=== PATIENT | male | born 1970 | race Hispanic/Latino ===

== ENCOUNTER 2023-08-17 17:36 | Emergency (ER) | payer OTHER, SELFPAY ==
--- NOTE | 2023-08-17 17:44 | ECG_ITS ---
Measurements Intervals [place] Rate: 88 P: 43 WV: 151 QRS: 34 QRSD: 92 T: 13 QT: 333 QTc: 405 Interpretive Statements SINUS RHYTHM NO PREVIOUS ECG AVAILABLE FOR COMPARISON Electronically Signed On 08-18-2023 12:11:45 CDT by Tati Galvan M.D.
--- NOTE | 2023-08-17 17:46 | ED.GENADULT ---
HPI - General Adult General Chief complaint: Chest Pain Stated complaint: pain in chest left side,lightheaded Time Seen by Provider: 08/17/23 17:46 Source: patient, RN notes reviewed and old records reviewed Mode of arrival: ambulatory Limitations: no limitations History of Present Illness HPI narrative: 53-year-old male presents to the [facility] with complaints of left-sided chest pain that started yesterday. Reports lightheadedness, dizziness as well as nausea. Pain has been waxing and weaning. Denies any significant past medical or surgical history Related Data Home Medications Medication Instructions Recorded Confirmed meloxicam 15 mg tablet 15 mg DIRECTED 08/17/23 08/17/23 Allergies Allergy/AdvReac Type Severity Reaction Status Date / Time No Known Drug Allergies Allergy Unknown Verified 03/03/18 17:09 Review of Systems Review of Systems: All systems reviewed & are unremarkable except as noted in HPI and below Constitutional: Constitutional: Reports no additional constitutional complaints Eyes: Eyes: Reports no additional eye complaints ENT: Reports system reviewed and no additional complaints, except as documented Cardiovascular: Cardiovascular: Reports as per HPI, Reports chest pain, Reports chest pain at rest, Reports chest pain with activity, Reports lightheadedness and Reports dyspnea Respiratory: Respiratory: Reports no additional respiratory complaints, Denies chest congestion, Denies cough and Denies dyspnea Gastrointestinal: Gastrointestinal: Reports no additional gastrointestinal complaints, Denies abdominal pain, Denies nausea and Denies vomiting Musculoskeletal: Musculoskeletal: Reports no additional musculoskeletal complaints Integumentary/Breasts: Skin/Breast: Reports system reviewed and no additional complaints, except as docu Neurologic: Reports system reviewed and no additional complaints, except as documented Psychiatric: Psychiatric: Reports no additional psychiatric complaints Allergic/Immunologic: Allergic/Immunologic: Reports no additional allergic/immunologic complaints PMFSH Comments At the time of my signature, I reviewed and agree with the nursing past medical, surgical, social, and family history. There is no relevant family history pertinent to the patient complaint. Exam Const: General: cooperative, healthy appearing, comfortable, no acute distress, well developed, alert and well nourished Nutritional Appearance: well nourished and obese centrally obese Orientation/consciousness: patient oriented x3 Limitations: no limitations HENMT: Head: normal to inspection Ears: hearing grossly normal bilaterally and external ears normal Face/Nose/Sinus: Normal external nose present, Normal nares present, Normal nasal mucous membranes and turbinates present, normal facial exam and face symmetric Face and sinus: normal facial exam and face symmetric Mouth: Yes lip normal and Yes moist mucous membranes Eyes: General: appearance normal, both eyes and all related structures Alignment and Position: alignment normal Periorbital: periorbital findings normal Pupils: Equal, round and reactive pupils present EOM: EOMs intact bilaterally Neck: Neck: normal visual inspection, full ROM, no lymphadenopathy and no meningeal signs Chest: Chest palpation & inspection: normal inspection of the chest Other: Pain is not reproducible with palpation of the left chest, breast area Resp: Effort & Inspection: normal respiratory effort and able to speak in complete sentences Auscultation: clear to auscultation bilaterally, no crackles, no rales, no rhonchi and no wheezes Cardio: Rate: regular rate Rhythm: regular rhythm Back/Spine/Pelvis: Cervical Spine: cervical ROM normal Skin: General skin exam: normal color and no rashes or lesions noted Lesions: no lesions Rashes: no rashes Wounds: no wounds Neuro: General: patient oriented x3, gait normal, tone normal, moves all extremities an
[2023-08-17 17:47] VITALS: BP 140/71; PULSE 90; RESP 18; TEMP 37; O2SAT 99
== END 2023-08-17 18:00 | disposition short-term general hospital (02) ==
PROVIDERS: Emergency Provider Nurse Practitioner; PCP Hospitalist
DX: R07.9 Chest pain, unspecified (principal); Z79.1 Long term (current) use of non-steroidal anti-inflammatories (NSAID)
CPT/HCPCS: 93005; 99213; G0463

== ENCOUNTER 2025-03-08 16:41 | Outpatient (CLI) | payer MEDICAID, SELFPAY ==
[2025-03-08 17:10] LABS: BCR/abl P190 Chg YES; BCR/abl P210 Chg YES
[2025-03-08 17:11] LABS: Hematocrit 43.8 % (42.0-52.0); Hemoglobin 14.7 g/dL (14.0-18.0); Mean Corpuscular HGB Conc 33.6 g/dl (32-36); Mean Corpuscular Hemoglobin 30.4 pg (26-34); Mean Corpuscular Volume 90.7 fl (80-100); Mean Platelet Volume 9.9 fl (7.4-10.4); Platelet Count Result 254 k/mm3 (150-375); Red Blood Count 4.83 M/mm3 (4.6-6.20); Red Cell Distribution Width 12.7 % (11.5-14.5)
[2025-03-08 17:26] LABS: Alanine Aminotransferase 18 U/L (6-50); Albumin Level 4.2 g/dL (3.5-5.1); Alkaline Phosphatase 75 U/L (38-126); Anion Gap 10 mmol/L (4-12); Aspartate Amino Transferase 25 U/L (17-59); Bilirubin,Total 0.4 mg/dL (0.2-1.3); Blood Urea Nitrogen 22 mg/dL (9-20); Calcium 9.1 mg/dL (8.4-10.2); Carbon Dioxide 26 mmol/L (22-30); Chloride 107 mmol/L (98-107); Estimated Glomerular Filt Rate > 60; Glucose 95 mg/dL (65-110); Potassium 4.1 mmol/L (3.4-5.0); Sodium 143 mmol/L (137-145)
--- OUTSIDE RECORDS SUMMARY | 2025-03-08 17:44 | XMS_ITS | Clinical Summary ---
Author Organization [facility] Address [address] [place] [address] Care Team Providers Care Bonsai Tender Name Role Phone Rich Yu MD Primary Care Provider [phone] [facility],non-owned Affiliates and Associated Physician Practices is amultiple site organization consisting of ambulatory clinics and hospital sitesin [place], [place], [place] and [place]. This disclosure is being madepursuant to the Care Everywhere program and may not contain all information available regarding this patient. Last updated 18.[facility] [employer] [facility] Allergies No known active allergies Medications * Be aware that medications may not be up to date on this document. Alwaysverify current medications with the patient. 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 1 Social History Tobacco Use Types Packs/Day Years Used Date Smoking Tobacco: Never Smokeless Tobacco: Never Alcohol Use Standard Drinks/Week Comments No 0 (1 standard drink = 0.6 oz pur e alcohol) Sex and Gender Information Value Date Recorded Sex Assigned at Not on file Legal Sex Male 6:30 PM CDT Gender Identity Not on file Sexual Orientation Not on file Last Filed Vital Signs Vital Sign Reading Time Taken Comments Blood Pressure 139/93 08/31/2018 1:22 PM CDT Pulse 77 08/31/2018 1:22 PM CDT Temperature 36.6 C (97.8 F) 08/31/2018 1:22 PM CDT Respiratory Rate 14 08/31/2018 1:22 PM CDT Oxygen Saturation 97% 08/31/2018 1:22 PM CDT Inhaled Oxygen Concentration - - Weight 113.4 kg (250 lb) 09/23/2018 8:37 AM [facility]TER [facility] Height 167.6 cm (5' 6 ) 09/23/2018 8:37 AM [facility]TER [facility] Body Mass Index 40.35 09/23/2018 8:37 AM COUNTER HELP Plan of Treatment Health Maintenance Due Date Last Done Comments COLOGUARD (AGES 45-75) - COL ON CA SCREENING 1972 COLON MONITORING 1972 COLONOSCOPY - COLON CA SCREENING 1972 CT COLONOGRAPHY - COLON CA SCREENING 1972 Colorectal Cancer Screening 1972 FIT - COLON CA SCREENING 1972 FLEX SIG - COLON CA SCREENING 1972 LIPID TESTING 1972 HIV SCREENING 1987 HEPATITIS C SCREENING 06/03/1990 DTAP/TDAP/TD VACCINES (1 - Tdap) 1991 HEPATITIS B VACCINE (1 of 3 - 19+ 3-dose series) 1991 SCREENING FOR DIABETES 08/25/2018 PNEUMOCOCCAL VACCINE 50+ (1 of 1 - PCV) 2022 ZOSTER VACCINE (1 of 2) 2022 COVID-19 VACCINE (1 - 2023-2 5 season) 2024 DEPRESSION SCREENING 11/16/2024 INFLUENZA VACCINE (Season Ended) 2025 HIB VACCINE Aged Out No longer eligi ble based on patient's age to complete this topic HPV VACCINE Aged Out No longer eligi ble based on patient's age to complete this topic MENINGOCOCCAL (Group B) VACC INE SHARED DECISION-MAKING Aged Out No longer eligibl e based on patient's age to complete this topic MENINGOCOCCAL GROUPS A/C/Y/W VACCINE Aged Out No longer eligible b ased on patient's age to complete this topic Insurance [employer] Advance Directives * Full Code (Latest Code Status on File) Date Activated Date Inactivated Comments 08/30/2018 10:13 AM 08/31/2018 2:59 PM Care Teams Bonsai Tender Relationship Specialty Start Date End Date Rich Yu MD [id number] [id number] PCP - General 08/26/18
--- OUTSIDE RECORDS SUMMARY | 2025-03-08 17:44 | XMS_ITS | Referral Summary ---
Author Organization [place] [address] [address] Care Team Providers Care Director Of Sales And Marketing Name Role Phone Gerardo Wolff MD, Makayla Crawley Primary Care Provide r Encounters Date Type Department Care Team Description 03/06/2025 2:30 PM CDT Office Visit [address] [phone] Parrish Garcia MD Snoring 02/14/2025 Orders Only [facility] [address] [place] [phone] Makayla Carrillo Jr., MD Snoring (Primary Dx) 02/14/2025 Telephone [facility] Primary Care [address] [place] [phone] Makayla Carrillo Jr., MD Zepbound denied 02/13/2025 Telephone [facility] Care [address] [place] [phone] Makayla Carrillo Jr., MD Medical Question/Miscellaneous 02/13/2025 Telephone [facility] Care [address] [place] [phone] Makayla Carrillo Jr., MD 02/13/2025 7:45 AM CDT Office Visit [facility] Care [address] [place] [phone] Makayla Carrillo Jr., MD Acute prostatitis (Primary Dx); Class 2 severe obesity due to excess calories with serious comorbidity and body mass index (BMI) of 37.0 to 37.9 in adult (HCC); Sepsis without acute organ dysfunction, due to unspecified organism (HCC); Benign essential microscopic hematuria 01/27/[address] [phone] Makayla Carrillo Jr., MD Med Refill; Call Back 01/12/2025 Letter (Out) [address] [phone] 01/12/[address] [phone] Makayla Carrillo Jr., MD Leukocytosis, unspecified type (Primary Dx); Sepsis without acute organ dysfunction, due to unspecified organism (HCC) 01/06/2025 9:00 AM COMPUTER SYSTEM SPECIALIST Office Visit [address] [phone] Makayla Carrillo Jr., MD Sepsis without acute organ dysfunction, due to unspecified organism (HCC) (Primary Dx); Benign prostatic hyperplasia with weak urinary stream; Leukocytosis, unspecified type; Primary osteoarthritis of both knees; Chronic pain of left knee; Class 2 severe obesity due to excess calories with serious comorbidity and body mass index (BMI) of 37.0 to 37.9 in adult (HCC) 01/05/[address] [phone] Makayla Carrillo Jr., MD Missed appt 01/04/[address] [phone] Makayla Carrillo Jr., MD SAUL Questions 12/31/2024 8:58 PM COMPUTER SYSTEM SPECIALIST - 01/04/2025 1:00 PM COMPUTER SYSTEM SPECIALIST Hospital Encounter [facility] Med Surg [address] [place] [address] Gerard Burrows DO Ismail, Yussuf Jaffar, MD Mahasneh, Omar Ali Mohammed, MD Winston, Jared Todd, MD Sepsis without acute organ dysfunction, due to unspecified organism (HCC) (Primary Dx); Acute prostatitis; Acute cystitis with hematuria Discharge Disposition: Discharge to home or self care 12/21/2024 2:15 PM COMPUTER SYSTEM SPECIALIST Office Visit [facility] Orthopedics and Sports Medicine [facility] [address] [place] [phone] Makayla Michaels PA Primary osteoarthritis of both knees (Primary Dx) 12/13/2024 Telephone [facility] [address] [place] [phone] Makayla Carrillo Jr., MD Lab Results 12/13/2024 9:35 AM COMPUTER SYSTEM SPECIALIST Lab [facility] Office Building [address] [place] [phone] Need for hepatitis B screening test; Need for hepatitis C screening test; Lipid disorder; Preventative health care 12/13/2024 9:00 AM COMPUTER SYSTEM SPECIALIST Office Visit [facility] Care [address] [place] [phone] Tana Mccallum NP Preventative health care (Primary Dx); Lipid disorder; Need for hepatitis C screening test; Need for hepatitis B screening test; Class 2 severe obesity due to excess calories with serious comorbidity and body mass index (BMI) of 38.0 to 38.9 in adult (HCC); Primary osteoarthritis of both knees from Last 3 Months Allergies No known active allergies Medications meloxicam (MOBIC) 15 mg tabletIndications: Primary osteoarthritis of both knees,Chronic pain of left knee Take 1 tablet (15 mg total) by mouth daily 30 tablet 3 5 Active semaglutide (Wegovy) 0.25 mg/0.5 mL auto-injectorIndic ations:Class 2 severe obesity due to excess calories with serious comorbidity and body mass index (BMI) of 38.0 to 38.9 in adult (HCC) Inject 0.5 mL (0.25 mg total) under the skin every 7 days 2 mL 4 02/15/20 25 Discontin ued(Thera py completed ) tamsulosin (FLOMAX) 0.4 mg extended release capsuleIndications :Benign prostatic hyperplasia with weak urinary stream Take 1 capsule (0.4 mg total) by mouth daily 90 capsule 4 5 02/15/20 25 Discontin ued(Thera py completed ) tirzepatide, weight loss, (ZEPBOUND) 2.5 mg/0.5 mL pen injectorIndication s:Class 2 severe obesity due to excess calories with serious comorbidity and body mass index (BMI) of 37.0 to 37.9 in adult (HCC) Inject 0.5 mL (2.5 mg total) under the skin every 7 days 2 mL 5 02/15/20 25 Discontin ued(Thera py completed ) Active Problems Problem Noted Date Diagnosed Date Snoring 03/06/2025 Assessment & Plan (03/06/2025 2:40 PM CDT): The patient was recently hospitalized and noted to have loud snoring. I have recommended proceeding with a nocturnal polysomnogram with a split night protocol if necessary and no MSLT. He will follow up here in 4 months. Benign essential microscopic hematuria 5 Assessment & Plan (02/13/2025 8:02 AM CDT): Had severe prostatitis and continued hematuria Will refer to urology Acute prostatitis 01/03/2025 Assessment & Plan (02/13/2025 8:01 AM CDT): Resolved Sepsis without acute organ d ysfunction, due to unspecified organism 12/31/2024 Assessment & Plan (02/13/2025 7:59 AM CDT): resovled Assessment & Plan (01/06/2025 11:18 AM COMPUTER SYSTEM SPECIALIST): Resolved Finish antibiotic course Primary osteoarthritis of both knees 03/25/2021 Assessment & Plan (01/06/2025 11:18 AM COMPUTER SYSTEM SPECIALIST): Continue mobic Assessment & Plan (12/13/2024 10:01 AM COMPUTER SYSTEM SPECIALIST): Managed by orthopedic surgeon Dr Michaels. FU as planned to continue Tx as needed. 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 Has not taken anything really OTC for it Will give indomethacin for 7 days Hopefully will be able to maintain with OTC after this Preventative health care 04/12/2020 Assessment & Plan (12/13/2024 10:00 AM COMPUTER SYSTEM SPECIALIST): Wear sunscreen with SPF over 50 while outdoors. Wear sun protective head wear and clothing if planning to stay outdoors exposed to the direct sunlight for extended hours. Wear seatbelts while in a vehicle. Do not TEXT and DRIVE Do not DRINK and DRIVE. Drink responsibly Follow a heart healthy diet and lifestyle. Consume 5-7 servings of fruits and vegetables a day. Such as the Mediterranean Diet. Maintain/attain normal body weight. Exercise regularly, minimum 20 mins 3 days a week to reduce cardiovascular healthy. Maintain good sleep schedule and sleep habits I recommend that all patients follow a diet that is high in fruits and vegetables and low in processed foods such as sugar and foods that are made with white flour. I recommend using beneficial fats such as olive oil, nuts, seeds and berries and avoiding saturated animal fats. Please stay physically active to the extent that you are physically able to. Test results: if you have not received communication about test results within 7 days of the test being performed, please contact the office. I strongly encourage myChart sign ups. It can facilitate communication flow. Please contact the office for instructions on signing up. Consider getting Shingrix (shingles vaccine). This is a 2-shot series with each injection given 2-6 months apart. You can obtain the vaccine at most major pharmacies without a prescription Assessment & Plan (12/09/2023 9:10 AM COMPUTER SYSTEM SPECIALIST): Reviewed labs, screenings and vaccines Assessment & Plan (03/25/2021 7:59 AM CDT): Recheck labs BP well controlled Lost weight Cut out soda Will not start walking regime Assessment & Plan (04/12/2020 10:07 AM CDT): Checking labs Will follow-up with us in 1 year in regards to these unless some come back abnormal Hemorrhoids 04/12/2020 Assessment & Plan (04/12/2020 10:05 AM CDT): Will attempt OTC suppositories. Was given information on which one to obtain Will get back to us if symptoms are resolved Tinea pedis of both feet 04/12/2020 Assessment & Plan (04/12/2020 10:06 AM CDT): Will attempt a different antifungal spray for his athletes feet If this does not work and his labs show his liver function is normal we will give oral antifungal to help with his symptoms Class 2 severe obesity due t o excess calories with serious comorbidity and body mass index (BMI) of 37.0 to 37.9 in adult 04/12/2020 Assessment & Plan (01/06/2025 11:18 AM COMPUTER SYSTEM SPECIALIST): Trying to start wegovy, will wait till he is recovered from the sepsis to start Assessment & Plan (12/13/2024 10:01 AM COMPUTER SYSTEM SPECIALIST): Work on attempts to lose weight about 1 lb a week. Join a weight loss program if necessary. Try to reach for BMI under 30. Exercise regularly, Limit carbs and sugars. Control portion intake. Consume 6-8 8oz glasses of water daily. Assessment & Plan (08/07/2022 3:09 PM CDT): Has lost >60 lbs since last visit Continue current healthy life style choices Assessment & Plan (04/12/2020 10:08 AM CDT): Discuss weight loss Recently got new dog, will go on walks more May consider going back on previous more controlled diet Immunizations Immunization Administration Dates Next Due Influenza, Quadrivalent, Spl it, Preservative Free, Intramuscular 10/18/2020 Influenza, Unspecified 02/13/2025(Deferr ed: Patient Refused),09/16/2024(Deferred: Patient Refused),08/31/2024(Deferred: Patient Refused),12/09/2023(Deferred: Patient Refused),09/16/2023(Deferred: Patient Refused),08/26/2023(Deferred: Patient Refused),09/16/2022(Deferred: Patient Refused),08/07/2022(Deferred: Patient Refused) Social History Tobacco Use Types Packs/Day Years Used Date Smoking Tobacco: Never Smokeless Tobacco: Never Tobacco Cessation:Counseling Given: Not Answered Alcohol Use Standard Drinks/Week Comments Not Currently 0 (1 standard drink = 0.6 oz pur e alcohol) View Medicalities Answer Date Recorded In the past 12 months has [employer], [employer] | [employer], or water [employer] threatened to shut off services in your home? No 01/03/2025 Social Connection and Isolat ion Panel [NHANES] Answer Date Recorded In a typical week, how many times do you talk on the phone with family, friends, or neighbors? More than three times a week 01/03/2025 How often do you get togethe r with friends or relatives? More than three times a week 01/03/2025 How often do you attend [facility] or protestant services? More than 4 times per year 01/03/2025 Do you belong to any clubs o r organizations such as gnosticism groups, unions, fraternal or athletic groups, or school groups? No 01/03/2025 How often do you attend meet ings of the clubs or organizations you belong to? Never 01/03/2025 Are you , , di vorced, , never , or living with a partner? 01/03/2025 AUDIT-C Answer Date Recorded Q1: How often do you have a drink containing alcohol? Never 02/13/2025 Q2: How many drinks containi ng alcohol do you have on a typical day when you are drinking? Patient does not drink Q3: How often do you have si x or more drinks on one occasion? Never 02/13/2025 Overall Financial Resource Strain (CARDIA) Answe r Date Recorded How hard is it for you to pa y for the very basics like food, housing, medical care, and heating? Not hard at all 01/03/2025 PHQ-2 Answer Date Recorded PHQ-2 Total Score (If total score is 3 or more points, staff should administer the PHQ-9) 0 02/13/2025 Hunger Vital Sign Answer Date Recorded Within the past 12 months, y ou worried that your food would run out before you got the money to buy more. Never true 01/03/20 25 Within the past 12 months, t he food you bought just didn't last and you didn't have money to get more. Never true 01/03/2025 PRAPARE - Transportation Answer Date Re corded In the past 12 months, has l ack of transportation kept you from medical appointments or from getting medications? No 12/17 In the past 12 months, has l ack of transportation kept you from meetings, work, or from getting things needed for daily living? No 01/03/2025 PHQ-9 Answer Date Recorded PHQ-9 Total Score 0 12/13/2024 Housing Stability Vital Sign Answer Primitivo e Recorded In the last 12 months, was t here a time when you were not able to pay the mortgage or rent on time? No 01/03/2025 In the past 12 months, how m any times have you moved where you were living? 0 01/03/2025 At any time in the past 12 m [facility], were you homeless or living in a detention (including now)? No 01/03/2025 Personal Safety Answer Date Recorded Have you ever been in or are you currently in a harmful physical or emotional relationship or is someone making you feel afraid or unsafe? Denies 01/01/2025 Sex and Gender Information Value Date Recorded Sex Assigned at Not on file Legal Sex Male 12:16 AM COMPUTER SYSTEM SPECIALIST Gender Identity Not on file Sexual Orientation Not on file Last Filed Vital Signs Vital Sign Reading Time Taken Comments Blood Pressure 124/68 03/06/2025 2:00 PM CDT Pulse 86 03/06/2025 2:00 PM CDT Temperature 37 C (98.6 F) 03/06/2025 2:00 PM CDT Respiratory Rate 18 03/06/2025 2:00 PM CDT Oxygen Saturation 96% 03/06/2025 2:00 PM CDT Inhaled Oxygen Concentration - - Weight 108 kg (238 lb) 03/06/2025 2:00 PM CDT Height 170.2 cm (5' 7 ) 03/06/2025 2:00 PM CDT Body Mass Index 37.28 03/06/2025 2:00 PM CDT Plan of Treatment Not on file Procedures Procedure Name Priority Date/Time Associated Diagnosis Comments POCT URINALYSIS DIPSTICK Routine 02/13/2025 7:42 AM CDT Acute prostatitis EGFR Routine 01/04/2025 7:47 AM COMPUTER SYSTEM SPECIALIST DIFFERENTIAL AUTO Routine 01/04/2025 7:4 7 AM COMPUTER SYSTEM SPECIALIST CBC WITH AUTO DIFFERENTIAL Routine 01/04/2025 7:47 AM COMPUTER SYSTEM SPECIALIST COMPREHENSIVE METABOLIC PANEL Routine 01/04/2025 7:47 AM COMPUTER SYSTEM SPECIALIST PHOSPHORUS Routine 01/04/2025 7:47 AM COMPUTER SYSTEM SPECIALIST EGFR Routine 01/03/2025 8:05 AM COMPUTER SYSTEM SPECIALIST DIFFERENTIAL AUTO Routine 01/03/2025 8:0 5 AM COMPUTER SYSTEM SPECIALIST CBC WITH AUTO DIFFERENTIAL Routine 01/03/2025 8:05 AM COMPUTER SYSTEM SPECIALIST COMPREHENSIVE METABOLIC PANEL Routine 01/03/2025 8:05 AM COMPUTER SYSTEM SPECIALIST MAGNESIUM Routine 01/03/2025 8:05 AM COMPUTER SYSTEM SPECIALIST PHOSPHORUS Routine 01/03/2025 8:05 AM COMPUTER SYSTEM SPECIALIST EGFR Routine 01/02/2025 9:58 AM COMPUTER SYSTEM SPECIALIST DIFFERENTIAL AUTO Routine 01/02/2025 9:5 8 AM COMPUTER SYSTEM SPECIALIST CBC WITH AUTO DIFFERENTIAL Routine 01/02/2025 9:58 AM COMPUTER SYSTEM SPECIALIST COMPREHENSIVE METABOLIC PANEL Routine 01/02/2025 9:58 AM COMPUTER SYSTEM SPECIALIST MAGNESIUM Routine 01/02/2025 9:58 AM COMPUTER SYSTEM SPECIALIST N. GONORRHOEAE/C. TRACHOMATIS AMPLIFICATION STAT 01/01/2025 5:52 AM COMPUTER SYSTEM SPECIALIST EGFR Routine 01/01/2025 2:10 AM COMPUTER SYSTEM SPECIALIST DIFFERENTIAL AUTO Routine 01/01/2025 2:1 0 AM COMPUTER SYSTEM SPECIALIST LACTATE Routine 01/01/2025 2:10 AM COMPUTER SYSTEM SPECIALIST PHOSPHORUS Routine 01/01/2025 2:10 AM COMPUTER SYSTEM SPECIALIST MAGNESIUM Routine 01/01/2025 2:10 AM COMPUTER SYSTEM SPECIALIST CBC WITH AUTO DIFFERENTIAL Routine 01/01/2025 2:10 AM COMPUTER SYSTEM SPECIALIST BASIC METABOLIC PANEL Routine 01/01/2025 2:10 AM COMPUTER SYSTEM SPECIALIST TROPONIN T HIGH-SENSITIVITY 6-HOUR Timed 01/01/2025 2:10 [address] COM[address] CHEST PE ABDOMEN PELVIS W CONTRAST ED 12/31/2024 8:20 PM COMPUTER SYSTEM SPECIALIST TROPONIN T HIGH-SENSITIVITY 2-HOUR Timed 12/31/2024 8:11 PM COMPUTER SYSTEM SPECIALIST MANUAL DIFFERENTIAL STAT 12/31/2024 7 :14 PM COMPUTER SYSTEM SPECIALIST CBC WITH AUTO DIFFERENTIAL STAT 12/31/2024 7:14 PM COMPUTER SYSTEM SPECIALIST BLOOD CULTURE STAT 12/31/2024 7:14 PM COMPUTER SYSTEM SPECIALIST SEPSIS LACTATE WITH REFLEX STAT 12/31/2024 7:05 PM COMPUTER SYSTEM SPECIALIST BLOOD CULTURE STAT 12/31/2024 7:05 PM COMPUTER SYSTEM SPECIALIST XR CHEST 1 VIEW ED 12/31/2024 6:10 PM COMPUTER SYSTEM SPECIALIST URINALYSIS, MICROSCOPIC ONLY STAT 12/31/2024 6:07 PM COMPUTER SYSTEM SPECIALIST URINE CULTURE STAT 12/31/2024 6:07 PM COMPUTER SYSTEM SPECIALIST URINALYSIS AND REFLEX TO MICROSCOPIC AND CULTURE STAT 12/31/2024 6:07 PM COMPUTER SYSTEM SPECIALIST EGFR STAT 12/31/2024 5:58 PM COMPUTER SYSTEM SPECIALIST MANUAL DIFFERENTIAL STAT 12/31/2024 5 :58 PM COMPUTER SYSTEM SPECIALIST DIFFERENTIAL AUTO STAT 12/31/2024 5:5 8 PM COMPUTER SYSTEM SPECIALIST LIPASE STAT 12/31/2024 5:58 PM COMPUTER SYSTEM SPECIALIST TROPONIN T HIGH-SENSITIVITY SERIES (BASELINE, 2HR, 4HR, 6HR) STAT 12/31/2024 5:58 PM COMPUTER SYSTEM SPECIALIST COMPREHENSIVE METABOLIC PANEL STAT 12/31/2024 5:58 PM COMPUTER SYSTEM SPECIALIST CBC WITH AUTO DIFFERENTIAL STAT 12/31/2024 5:58 PM COMPUTER SYSTEM SPECIALIST INFLUENZA A/B, RSV, AND COVID-19 PCR STAT 12/31/2024 5:58 PM COMPUTER SYSTEM SPECIALIST ECG 12-LEAD STAT 12/31/2024 5:53 PM COMPUTER SYSTEM SPECIALIST TX ARTHROCENTESIS ASPIR&/INJ MAJOR JT/BURSA W/O US Routine 12/21/2024 2:15 PM COMPUTER SYSTEM SPECIALIST Primary osteoarthritis of both knees EGFR Routine 12/13/2024 9:50 AM COMPUTER SYSTEM SPECIALIST Preventative health care DIFFERENTIAL AUTO Routine 12/13/2024 9:5 0 AM COMPUTER SYSTEM SPECIALIST Preventative health care CBC WITH AUTO DIFFERENTIAL Routine 12/13/2024 9:50 AM COMPUTER SYSTEM SPECIALIST Preventative health care COMPREHENSIVE METABOLIC PANEL Routine 12/13/2024 9:50 AM COMPUTER SYSTEM SPECIALIST Preventative health care LIPID PANEL Routine 12/13/2024 9:50 AM COMPUTER SYSTEM SPECIALIST Lipid disorder HEPATITIS C ANTIBODY Routine 12/13/2024 9:50 AM COMPUTER SYSTEM SPECIALIST Need for hepatitis C screening test HEPATITIS B SURFACE ANTIGEN Routine 12/13/2024 9:50 AM COMPUTER SYSTEM SPECIALIST Need for hepatitis B screening test PSA SCREEN Routine 12/09/2023 8:57 AM COMPUTER SYSTEM SPECIALIST Preventative health care HM COLONOSCOPY Routine 05/21/2021 from Last 3 Months or Most Recently Relevant to Health Maintenance Results * (ABNORMAL) POCT urinalysis dipstick (02/13/2025 7:42 AM CDT) Color, Urine, POC Charu Clarity, ur, POC Clear Clear Glucose, ur, POC Negative Negative MG/DL Bilirubin, ur, POC Negative Negative, Small, Moderate, Large Ketones, ur, POC Negative Negative Specific Anselmo, POC 1.025 1.003 - 1.030 Blood, ur, POC Moderate(A) Negative pH, ur, POC 5.5 5.0 - 8.0 Protein, ur, POC Negative Negative Urobilinogen, urine, POC 0.2 0.2 - 1.0 mg/dL Nitrite, ur, POC Negative Negative Leukocytes, ur, POC Negative Negative Lot Number 0 Urine 02/13/2025 7:42 AM CDT Makayla Carrillo Jr., MD POINT OF CARE TEST OR DERABLES Final Result * eGFR (01/04/2025 7:47 AM COMPUTER SYSTEM SPECIALIST) eGFR >90 >=60 mL/min/1. 73 m2 Comment: Interpretive Data Reference Interval Normal >/= 90 mL/min/1.73m2 Mildly decreased* 60 - 89 mL/min/1.73m2 Mildly to moderately decreased 45 - 59 mL/min/1.73m2 Moderately to severely decreased 30 - 44 mL/min/1.73m2 Severely decreased 15 - 29 mL/min/1.73m2 Kidney Failure < 15 mL/min/1.73m2 *Relative to young adult level Estimated glomerular filtration rate is determined by the 2020 CKD-EPI equation recommended by the National Kid[employer] Foundation (A Unifying Approach to GFR Estimation: Recommendations of the NKF-ASK Task Force on Reassessing the Inclusion of Race in Diagnosing Kidney Disease, JASN 2020). The CKD-EPI equation should not be used for patients with unstable renal function and has not been validated in children and those over 70. Current interpretive data was last reviewed 2021. Testing performed by: [address] [address] Blood 01/04/2025 7:47 AM COMPUTER SYSTEM SPECIALIST 01/04/2025 8:13 AM COMPUTER SYSTEM SPECIALIST us Francisco Javier Cid MD LAB BLOOD ORDERABL ES Final Result [facility] [address] [facility] Department [place] [address] * (ABNORMAL) Differential, auto (01/04/2025 7:47 AM COMPUTER SYSTEM SPECIALIST) Neutrophil abs 11.7(H) 1.5 - 6.5 K/cumm Comment:Testing performed by : [address] [address] Imm gran abs 0.4(H) 0.0 - 0.1 K/cumm NEO MAHARAJ Comment:Testing performed by : [address] [address] Lymphocyte abs 2.2 0.8 - 3.3 K/cumm NEO MAHARAJ Comment:Testing performed by : [address] [address] Monocyte abs 1.0(H) 0.2 - 0.8 K/cumm NEO MAHARAJ Comment:Testing performed by : [address] [address] Eosinophil abs 0.2 0.0 - 0.5 K/cumm NEO Comment:Testing performed by : [address] [address] Basophil abs 0.1 0.0 - 0.1 K/cumm NEO Comment:Testing performed by : [address] [address] Neutrophil pct 75.2 % [facility] Comment: Interpretive Data Percent cell count reference ranges are not reported, since discordance with absolute values may lead to misinterpretation of CBC data. Current Interpretive Data was last revised on 2018. Testing performed by: [address] [address] Imm gran pct 2.6 % [facility] Comment: Interpretive Data Percent cell count reference ranges are not reported, since discordance with absolute values may lead to misinterpretation of CBC data. Current Interpretive Data was last revised on 2018. Testing performed by: [address] [address] Lymphocyte pct 14.0 % [facility] Comment: Interpretive Data Percent cell count reference ranges are not reported, since discordance with absolute values may lead to misinterpretation of CBC data. Current Interpretive Data was last revised on 2018. Testing performed by: [address] [address] Monocyte pct 6.3 % [facility] Comment: Interpretive Data Percent cell count reference ranges are not reported, since discordance with absolute values may lead to misinterpretation of CBC data. Current Interpretive Data was last revised on 2018. Testing performed by: [address] [address] Eosinophil pct 1.2 % [facility] Comment: Interpretive Data Percent cell count reference ranges are not reported, since discordance with absolute values may lead to misinterpretation of CBC data. Current Interpretive Data was last revised on 2018. Testing performed by: [address] [address] Basophil pct 0.7 % [facility] Comment: Interpretive Data Percent cell count reference ranges are not reported, since discordance with absolute values may lead to misinterpretation of CBC data. Current Interpretive Data was last revised on 2018. Testing performed by: [address] [address] Blood 01/04/2025 7:47 AM COMPUTER SYSTEM SPECIALIST 01/04/2025 8:15 AM COMPUTER SYSTEM SPECIALIST Francisco Javier Cid MD LAB BLOOD ORDERABL ES Final Result [facility] [address] [facility] Department of Laboratories [place], [place] [id number] * (ABNORMAL) CBC with auto differential (01/04/2025 7:47 AM COMPUTER SYSTEM SPECIALIST) WBC 15.5(H) 3.8 - 9.9 K/cumm Comment:Testing performed by : [address] [address] Hgb 15.1 13.0 - 17.5 g/dL NEO Comment:Testing performed by : [address] [address] Hct 44.4 38.9 - 50.3 % NEO Comment:Testing performed by : [address] [address] Plt 293 150 - 400 K/cumm NEO Comment:Testing performed by : [address] [address] MPV 10.5 9.1 - 12.3 fL NEO Comment:Testing performed by : [address] [address] RBC 4.97 4.30 - 5.80 M/cumm NEO MAHARAJ Comment:Testing performed by : [address] [address] MCV 89.3 81.3 - 96.4 fL NEO Comment:Testing performed by : [address] [address] MCH 30.4 27.1 - 33.3 pg NEO MAHARAJ Comment:Testing performed by : [facility], [address] [place] [address]., [address] MCHC 34.0 32.3 - 35.7 g/dL NEO MAHARAJ Comment:Testing performed by : [address] [address] RDW CV 12.7 11.1 - 14.9 % NEO MAHARAJ Comment:Testing performed by : [address] [address] RDW SD 41.6 35.7 - 48.1 fL NEO MAHARAJ Comment:Testing performed by : [address], [place]., [address] NRBC abs 0.00 0.00 - 0.01 K/cumm NEO MAHARAJ Comment:Testing performed by : [address] [address] Blood 01/04/2025 7:47 AM COMPUTER SYSTEM SPECIALIST 01/04/2025 8:15 AM COMPUTER SYSTEM SPECIALIST Francisco Javier Cid MD LAB BLOOD ORDERABL ES Final Result Performing Organization Address City/[facility]/ZIP Co de Phone Number [address] [place] [address] * Phosphorus (01/04/2025 7:47 AM COMPUTER SYSTEM SPECIALIST) [facility] Phosphorus, pl 3.5 2.3 - 4.5 mg/dL Comment:Testing performed by : [address] [address] Blood 01/04/2025 7:47 AM COMPUTER SYSTEM SPECIALIST 01/04/2025 8:13 AM COMPUTER SYSTEM SPECIALIST Francisco Javier Cid MD LAB BLOOD ORDERABL ES Final Result [address] [address] * (ABNORMAL) Comprehensive metabolic panel (01/04/2025 7:47 AM COMPUTER SYSTEM SPECIALIST) Sodium 140 135 - 145 mmol/L Comment:Testing performed by : [address], [place]., [address] Potassium, pl 3.9 3.3 - 4.9 mmol/L NEO Comment:Testing performed by : [address], [place]., [address] Chloride 104 97 - 110 mmol/L NEO Comment:Testing performed by : [address], [place]., [address] CO2 24 22 - 32 mmol/L [facility] Comment:Testing performed by : [address], [place]., [address] Anion gap 12 2 - 15 mmol/L NEO Comment:Testing performed by : [address], [place]., [address] BUN 13 6 - 25 mg/dL [facility] Comment:Testing performed by : [address], [place]., [address] Creatinine 0.60(L) 0.80 - 1.30 mg/dL [facility] Comment:Testing performed by : [address], [place]., [address] Glucose 97 70 - 199 mg/dL [facility] Comment: Interpretive Data Fasting glucose >/= 126 mg/dl is diagnostic for diabetes. Fasting is defined as no caloric intake for at least 8 hours. Fasting glucose between 100 mg/dl to 125 mg/dl is diagnostic of prediabetes. In a patient with classic symptoms of hyperglycemia or hyperglycemic crisis, a random glucose >/= 200 mg/dl is diagnostic for diabetes. In the absence of unequivocal hyperglycemia, results should be confirmed by repeat testing. The classification and Diagnosis of Diabetes Diabetes Care 202; 46: S19-S40. Current interpretive data was last revised 2022. Testing performed by: [address] [address] Calcium 9.5 8.5 - 10.3 mg/dL NEO Comment:Testing performed by : [address], [place]., [address] Bilirubin, total 0.2 0.1 - 1.2 mg/dL NEO Comment:Testing performed by : [address] [address] Protein, pl 7.5 6.5 - 8.5 g/dL NEO MAHARAJ Comment:Testing performed by : [address] [address] Albumin 3.6 3.5 - 5.0 g/dL NEO MAHARAJ Comment:Testing performed by : [address] [address] Alk phos 112 40 - 130 Units/L NEO Comment:Testing performed by : [address] [address] ALT 22 7 - 55 Units/L NEO Comment:Testing performed by : [address] [address] AST 24 10 - 50 Units/L NEO Comment:Testing performed by : [address] [address] Blood 01/04/2025 7:47 AM COMPUTER SYSTEM SPECIALIST 01/04/2025 8:13 AM COMPUTER SYSTEM SPECIALIST Francisco Javier Cid MD LAB BLOOD ORDERABL ES Final Result NEO [address] [facility] Department of Laboratories [place], [place] [id number] * eGFR (01/03/2025 8:05 AM COMPUTER SYSTEM SPECIALIST) eGFR >90 >=60 mL/min/1. 73 m2 Comment: Interpretive Data Reference Interval Normal >/= 90 mL/min/1.73m2 Mildly decreased* 60 - 89 mL/min/1.73m2 Mildly to moderately decreased 45 - 59 mL/min/1.73m2 Moderately to severely decreased 30 - 44 mL/min/1.73m2 Severely decreased 15 - 29 mL/min/1.73m2 Kidney Failure < 15 mL/min/1.73m2 *Relative to young adult level Estimated glomerular filtration rate is determined by the 2020 CKD-EPI equation recommended by the National Kidney Foundation (A Unifying Approach to GFR Estimation: Recommendations of the NKF-ASK Task Force on Reassessing the Inclusion of Race in Diagnosing Kidney Disease, LAYSN 2020). The CKD-EPI equation should not be used for patients with unstable renal function and has not been validated in children and those over 70. Current interpretive data was last reviewed 2021. Testing performed by: [address] [address] Blood 01/03/2025 8:05 AM COMPUTER SYSTEM SPECIALIST 01/03/2025 8:36 AM COMPUTER SYSTEM SPECIALIST Francisco Javier Cid MD LAB BLOOD ORDERABL ES Final Result NEO [address] [facility] Department [place] [address] * (ABNORMAL) Differential, auto (01/03/2025 8:05 AM COMPUTER SYSTEM SPECIALIST) Neutrophil abs 20.7(H) 1.5 - 6.5 K/cumm Comment:Testing performed by : [address] [address] Imm gran abs 0.2(H) 0.0 - 0.1 K/cumm NEO Comment:Testing performed by : [address] [address] Lymphocyte abs 1.8 0.8 - 3.3 K/cumm NEO Comment:Testing performed by : [address] [address] Monocyte abs 1.0(H) 0.2 - 0.8 K/cumm NEO Comment:Testing performed by : [address] [address] Eosinophil abs 0.1 0.0 - 0.5 K/cumm NEO Comment:Testing performed by : [address] [address] Basophil abs 0.1 0.0 - 0.1 K/cumm NEO Comment:Testing performed by : [address] [address] Neutrophil pct 86.7 % NEO Comment: Interpretive Data Percent cell count reference ranges are not reported, since discordance with absolute values may lead to misinterpretation of CBC data. Current Interpretive Data was last revised on 2018. Testing performed by: [address] [address] Imm gran pct 1.0 % [facility] Comment: Interpretive Data Percent cell count reference ranges are not reported, since discordance with absolute values may lead to misinterpretation of CBC data. Current Interpretive Data was last revised on 2018. Testing performed by: [address] [address] Lymphocyte pct 7.4 % [facility] Comment: Interpretive Data Percent cell count reference ranges are not reported, since discordance with absolute values may lead to misinterpretation of CBC data. Current Interpretive Data was last revised on 2018. Testing performed by: [address] [address] Monocyte pct 4.1 % [facility] Comment: Interpretive Data Percent cell count reference ranges are not reported, since discordance with absolute values may lead to misinterpretation of CBC data. Current Interpretive Data was last revised on 2018. Testing performed by: [address] [address] Eosinophil pct 0.5 % [facility] Comment: Interpretive Data Percent cell count reference ranges are not reported, since discordance with absolute values may lead to misinterpretation of CBC data. Current Interpretive Data was last revised on 2018. Testing performed by: [address] [address] Basophil pct 0.3 % [facility] Comment: Interpretive Data Percent cell count reference ranges are not reported, since discordance with absolute values may lead to misinterpretation of CBC data. Current Interpretive Data was last revised on 2018. Testing performed by: [address] [address] Blood 01/03/2025 8:05 AM COMPUTER SYSTEM SPECIALIST 01/03/2025 8:37 AM COMPUTER SYSTEM SPECIALIST Francisco Javier Cid MD LAB BLOOD ORDERABL ES Final Result Performing Organization Address City/State/[facility] Co de Phone Number NEO [address] [facility] Department [place] [address] * (ABNORMAL) CBC with auto differential (01/03/2025 8:05 AM COMPUTER SYSTEM SPECIALIST) WBC 23.9(H) 3.8 - 9.9 K/cumm Comment:Testing performed by : [address] [address] Hgb 14.6 13.0 - 17.5 g/dL NEO Comment:Testing performed by : [address] [address] Hct 42.3 38.9 - 50.3 % NEO Comment:Testing performed by : [address] [address] Plt 266 150 - 400 K/cumm NEO Comment:Testing performed by : [address] [address] MPV 10.9 9.1 - 12.3 fL NEO Comment:Testing performed by : [address] [address] RBC 4.73 4.30 - 5.80 M/cumm NEO Comment:Testing performed by : [address] [address] MCV 89.4 81.3 - 96.4 fL NEO Comment:Testing performed by : [address] [address] MCH 30.9 27.1 - 33.3 pg NEO Comment:Testing performed by : [address] [address] MCHC 34.5 32.3 - 35.7 g/dL NEO Comment:Testing performed by : [address], [address] RDW CV 12.6 11.1 - 14.9 % NEO Comment:Testing performed by : [address] [address] RDW SD 41.4 35.7 - 48.1 fL NEO Comment:Testing performed by : [address] [address] NRBC abs 0.00 0.00 - 0.01 K/cumm NEO Comment:Testing performed by : [address] [address] Blood 01/03/2025 8:05 AM COMPUTER SYSTEM SPECIALIST 01/03/2025 8:37 AM COMPUTER SYSTEM SPECIALIST Francisco Javier Cid MD LAB BLOOD ORDERABL ES Final Result Performing Organization Address City/[facility]/ZIP Co de Phone Number [address] [address] * (ABNORMAL) Phosphorus (01/03/2025 8:05 AM COMPUTER SYSTEM SPECIALIST) Phosphorus, pl 2.2(L) 2.3 - 4.5 mg/dL Comment:Testing performed by : [address] [address] Blood 01/03/2025 8:05 AM COMPUTER SYSTEM SPECIALIST 01/03/2025 8:36 AM COMPUTER SYSTEM SPECIALIST Francisco Javier Cid MD LAB BLOOD ORDERABL ES Final Result Performing Organization Address [facility] Co de Phone Number [address] [address] * Magnesium (01/03/2025 8:05 AM COMPUTER SYSTEM SPECIALIST) Magnesium 2.0 1.4 - 2.5 mg/dL Comment:Testing performed by : [address] [address] Blood 01/03/2025 8:05 AM COMPUTER SYSTEM SPECIALIST 01/03/2025 8:36 AM COMPUTER SYSTEM SPECIALIST Francisco Javier Cid MD LAB BLOOD ORDERABL ES Final Result Performing Organization Address City/[facility] Co de Phone Number [address] [place] [address] * (ABNORMAL) Comprehensive metabolic panel (01/03/2025 8:05 AM COMPUTER SYSTEM SPECIALIST) Sodium 140 135 - 145 mmol/L Comment:Testing performed by : [address] [address] Potassium, pl 3.6 3.3 - 4.9 mmol/L NEO Comment:Testing performed by : [address] [address] Chloride 105 97 - 110 mmol/L NEO Comment:Testing performed by : [address] [address] CO2 24 22 - 32 mmol/L NEO Comment:Testing performed by : [address] [address] Anion gap 11 2 - 15 mmol/L NEO Comment:Testing performed by : [address] [address] BUN 9 6 - 25 mg/dL NEO Comment:Testing performed by : [address] [address] Creatinine 0.60(L) 0.80 - 1.30 mg/dL NEO Comment:Testing performed by : [address] [address] Glucose 117 70 - 199 mg/dL NEO Comment: Interpretive Data Fasting glucose >/= 126 mg/dl is diagnostic for diabetes. Fasting is defined as no caloric intake for at least 8 hours. Fasting glucose between 100 mg/dl to 125 mg/dl is diagnostic of prediabetes. In a patient with classic symptoms of hyperglycemia or hyperglycemic crisis, a random glucose >/= 200 mg/dl is diagnostic for diabetes. In the absence of unequivocal hyperglycemia, results should be confirmed by repeat testing. The classification and Diagnosis of Diabetes Diabetes Care 202; 46: S19-S40. Current interpretive data was last revised 2022. Testing performed by: [address] [address] Calcium 9.1 8.5 - 10.3 mg/dL NEO Comment:Testing performed by : [address] [place] [address] Bilirubin, total 0.2 0.1 - 1.2 mg/dL NEO Comment:Testing performed by : [address] [address] Protein, pl 7.3 6.5 - 8.5 g/dL NEO Comment:Testing performed by : [address] [address] Albumin 3.5 3.5 - 5.0 g/dL NEO Comment:Testing performed by : [address] [address] Alk phos 144(H) 40 - 130 Units/L NEO Comment:Testing performed by : [address], [address] ALT 12 7 - 55 Units/L NEO Comment:Testing performed by : [address], [address] AST 14 10 - 50 Units/L NEO Comment:Testing performed by : [address] [address] Blood 01/03/2025 8:05 AM COMPUTER SYSTEM SPECIALIST 01/03/2025 8:36 AM COMPUTER SYSTEM SPECIALIST Francisco Javier Cid MD LAB BLOOD ORDERABL ES Final Result [facility] [address] [facility] Department [place] [address] * eGFR (01/02/2025 9:58 AM COMPUTER SYSTEM SPECIALIST) eGFR >90 >=60 mL/min/1. 73 m2 Comment: Interpretive Data Reference Interval Normal >/= 90 mL/min/1.73m2 Mildly decreased* 60 - 89 mL/min/1.73m2 Mildly to moderately decreased 45 - 59 mL/min/1.73m2 Moderately to severely decreased 30 - 44 mL/min/1.73m2 Severely decreased 15 - 29 mL/min/1.73m2 Kidney Failure < 15 mL/min/1.73m2 *Relative to young adult level Estimated glomerular filtration rate is determined by the 2020 CKD-EPI equation recommended by the National Kidney Foundation (A Unifying Approach to GFR Estimation: Recommendations of the NKF-ASK Task Force on Reassessing the Inclusion of Race in Diagnosing Kidney Disease, JASN 202). The CKD-EPI equation should not be used for patients with unstable renal function and has not been validated in children and those over 70. Current interpretive data was last reviewed 2021. Testing performed by: [address] [address] Blood 01/02/2025 9:58 AM COMPUTER SYSTEM SPECIALIST 01/02/2025 12:57 PM COMPUTER SYSTEM SPECIALIST Francisco Javier Cid MD LAB BLOOD ORDERABL ES Final Result NEO [facility] Department [place] [address] * (ABNORMAL) Differential, auto (01/02/2025 9:58 AM COMPUTER SYSTEM SPECIALIST) Neutrophil abs 31.1(H) 1.5 - 6.5 K/cumm Comment:Testing performed by : [address] [address] Imm gran abs 0.7(H) 0.0 - 0.1 K/cumm NEO Comment:Testing performed by : [address] [address] Lymphocyte abs 1.8 0.8 - 3.3 K/cumm NEO Comment:Testing performed by : [address] [address] Monocyte abs 1.7(H) 0.2 - 0.8 K/cumm NEO Comment:Testing performed by : [address] [address] Eosinophil abs 0.1 0.0 - 0.5 K/cumm NEO Comment:Testing performed by : [address] [address] Basophil abs 0.1 0.0 - 0.1 K/cumm NEO Comment:Testing performed by : [address] [address] Neutrophil pct 87.8 % [facility] Comment: Interpretive Data Percent cell count reference ranges are not reported, since discordance with absolute values may lead to misinterpretation of CBC data. Current Interpretive Data was last revised on 2018. Testing performed by: [address] [address] Imm gran pct 2.0 % [facility] Comment: Interpretive Data Percent cell count reference ranges are not reported, since discordance with absolute values may lead to misinterpretation of CBC data. Current Interpretive Data was last revised on 2018. Testing performed by: [address] [address] Lymphocyte pct 5.1 % [facility] Comment: Interpretive Data Percent cell count reference ranges are not reported, since discordance with absolute values may lead to misinterpretation of CBC data. Current Interpretive Data was last revised on 2018. Testing performed by: [address] [address] Monocyte pct 4.7 % [facility] Comment: Interpretive Data Percent cell count reference ranges are not reported, since discordance with absolute values may lead to misinterpretation of CBC data. Current Interpretive Data was last revised on 2018. Testing performed by: [address] [address] Eosinophil pct 0.2 % [facility] Comment: Interpretive Data Percent cell count reference ranges are not reported, since discordance with absolute values may lead to misinterpretation of CBC data. Current Interpretive Data was last revised on 2018. Testing performed by: [address] [address] Basophil pct 0.2 % [facility] Comment: Interpretive Data Percent cell count reference ranges are not reported, since discordance with absolute values may lead to misinterpretation of CBC data. Current Interpretive Data was last revised on 2018. Testing performed by: [address] [address] Blood 01/02/2025 9:58 AM COMPUTER SYSTEM SPECIALIST 01/02/2025 11:09 AM COMPUTER SYSTEM SPECIALIST Francisco Javier Cid MD LAB BLOOD ORDERABL ES Final Result NEO [address] [facility] Department [place] [address] * (ABNORMAL) CBC with auto differential (01/02/2025 9:58 AM COMPUTER SYSTEM SPECIALIST) WBC 35.4(H) 3.8 - 9.9 K/cumm Comment:Testing performed by : [address] [address] Hgb 13.7 13.0 - 17.5 g/dL NEO Comment:Testing performed by : [address] [address] Hct 39.3 38.9 - 50.3 % NEO Comment:Testing performed by : [address] [address] Plt 190 150 - 400 K/cumm NEO Comment:Testing performed by : [address] [address] MPV 11.3 9.1 - 12.3 fL NEO Comment:Testing performed by : [address] [address] RBC 4.36 4.30 - 5.80 M/cumm NEO Comment:Testing performed by : [address] [address] MCV 90.1 81.3 - 96.4 fL NEO Comment:Testing performed by : [address] [address] MCH 31.4 27.1 - 33.3 pg NEO Comment:Testing performed by : [address], [address] MCHC 34.9 32.3 - 35.7 g/dL NEO Comment:Testing performed by : [address], [address] RDW CV 12.6 11.1 - 14.9 % NEO Comment:Testing performed by : [address] [address] RDW SD 41.2 35.7 - 48.1 fL NEO MAHARAJ Comment:Testing performed by : [address] [address] NRBC abs 0.00 0.00 - 0.01 K/cumm NEO MAHARAJ Comment:Testing performed by : [address] [address] Blood 01/02/2025 9:58 AM COMPUTER SYSTEM SPECIALIST 01/02/2025 11:09 AM COMPUTER SYSTEM SPECIALIST Francisco Javier Cid MD LAB BLOOD ORDERABL ES Final Result Performing Organization Address City/[facility] Co de Phone Number [address] [place] [address] * Magnesium (01/02/2025 9:58 AM COMPUTER SYSTEM SPECIALIST) Pathologist [facility] Magnesium 2.1 1.4 - 2.5 mg/dL Comment:Testing performed by : [address], [address] Blood 01/02/2025 9:58 AM COMPUTER SYSTEM SPECIALIST 01/02/2025 12:57 PM COMPUTER SYSTEM SPECIALIST Francisco Javier Cid MD LAB BLOOD ORDERABL ES Final Result Performing Organization Address [facility] Co de Phone Number [address] [place] [address] * (ABNORMAL) Comprehensive metabolic panel (01/02/2025 9:58 AM COMPUTER SYSTEM SPECIALIST) Pathologist [facility] Sodium 136 135 - 145 mmol/L Comment:Testing performed by : [address] [address] Potassium, pl 4.2 3.3 - 4.9 mmol/L NEO MAHARAJ Comment: Hemolyzed; Potassium value may be falsely elevated by as much as 1.0 mmol/L. Suggest redraw and reanalysis. Testing performed by: [address] [address] Chloride 105 97 - 110 mmol/L [facility] Comment:Testing performed by : [address] [address] CO2 18(L) 22 - 32 mmol/L NEO Comment:Testing performed by : [address], [place]., [address] Anion gap 13 2 - 15 mmol/L NEO Comment:Testing performed by : [address] [address] BUN 10 6 - 25 mg/dL [facility] Comment:Testing performed by : [address], [place]., [address] Creatinine 0.60(L) 0.80 - 1.30 mg/dL [facility] Comment:Testing performed by : [address] [address] Glucose 112 70 - 199 mg/dL [facility] Comment: Interpretive Data Fasting glucose >/= 126 mg/dl is diagnostic for diabetes. Fasting is defined as no caloric intake for at least 8 hours. Fasting glucose between 100 mg/dl to 125 mg/dl is diagnostic of prediabetes. In a patient with classic symptoms of hyperglycemia or hyperglycemic crisis, a random glucose >/= 200 mg/dl is diagnostic for diabetes. In the absence of unequivocal hyperglycemia, results should be confirmed by repeat testing. The classification and Diagnosis of Diabetes Diabetes Care 2021; 46: S19-S40. Current interpretive data was last revised 2022. Testing performed by: [address] [address] Calcium 8.9 8.5 - 10.3 mg/dL [facility] Comment:Testing performed by : [address] [address] Bilirubin, total 0.4 0.1 - 1.2 mg/dL [facility] Comment:Testing performed by : [address] [address] Protein, pl 6.6 6.5 - 8.5 g/dL NEO Comment:Testing performed by : [address] [address] Albumin 3.0(L) 3.5 - 5.0 g/dL NEO Comment:Testing performed by : [address] [address] Alk phos 146(H) 40 - 130 Units/L NEO Comment:Testing performed by : [address] [address] ALT 13 7 - 55 Units/L NEO Comment:Testing performed by : [address] [address] AST 25 10 - 50 Units/L NEO Comment: Hemolyzed; result may be falsely elevated Testing performed by: [address] [address] Blood 01/02/2025 9:58 AM COMPUTER SYSTEM SPECIALIST 01/02/2025 12:57 PM COMPUTER SYSTEM SPECIALIST Francisco Javier Cid MD LAB BLOOD ORDERABL ES Final Result [facility] [address] [facility] Department [place] [address] * N. gonorrhoeae/C. trachomatis Amplification Urine (01/01/2025 5:52 AM COMPUTER SYSTEM SPECIALIST) C. trachomatis Not Detected Not Detected Comment:Testing performed by : [address] [address] N. gonorrhoeae Not Detected Not Detected NEO Comment: Interpretive Data This assay detects Chlamydia trachomatis and Neisseria gonorrhoeae by nucleic acid amplification testing (NAAT). This assay has been cleared by the [place] Food and Drug administration. The performance characteristics of this test have been verified by the [facility]. The performance characteristics of this test have not been evaluated in individuals less than 14 years of age. Current Interpretive Data last revised 2023. Testing performed by: [address] [address] Urine (None) 01/01/2025 5:52 AM COMPUTER SYSTEM SPECIALIST 01/01/2025 6:06 AM COMPUTER SYSTEM SPECIALIST Tonny Pratt MD LAB MICROBIOLOGY - GENER AL ORDERABLES Final Result Performing Organization Address [facility] Co de Phone Number NEO [address] [facility] [place] [address] * Troponin T high-sensitivity 6-hour (01/01/2025 2:10 AM COMPUTER SYSTEM SPECIALIST) Trop T hs 13 <=22 ng/L Comment: Interpretive Data For further hscTnT resources including the diagnostic algorithm and an aid in interpretation, copy and paste this link: [email or web address].testcatalog.org/show/[email or web address] Current Interpretive Data last revised 2020. Testing performed by: [address] [address] Trop T hs delta See Comment ng/L NEO Comment: Inappropriate collection time to report a delta. Testing performed by: [address] [address] Trop T hs pct delta See Comment % NEO Comment: Inappropriate collection time to report a delta. Testing performed by: [address] [address] Trop T hs interp See Comment NEO Comment: Inappropriate collection time to report a delta. Testing performed by: [address] [address] Blood 01/01/2025 2:10 AM COMPUTER SYSTEM SPECIALIST 01/01/2025 2:16 AM COMPUTER SYSTEM SPECIALIST Mariana HOUSTON LAB BLOOD ORDERABLES Final Resu lt Performing Organization Address City/[facility]/ZIP Co de Phone Number NEO [address] [facility] Department [place] [address] * Lactate (01/01/2025 2:10 AM COMPUTER SYSTEM SPECIALIST) Lactate 0.9 0.7 - 2.0 mmol/L Comment:Testing performed by : [address] [address] Blood 01/01/2025 2:10 AM COMPUTER SYSTEM SPECIALIST 01/01/2025 2:16 AM COMPUTER SYSTEM SPECIALIST Tonny Pratt MD LAB BLOOD ORDERABLES Fin al Result Performing Organization Address [facility] Co il Phone Number NEO [address] [place] [address] * eGFR (01/01/2025 2:10 AM COMPUTER SYSTEM SPECIALIST) eGFR >90 >=60 mL/min/1. 73 m2 Comment: Interpretive Data Reference Interval Normal >/= 90 mL/min/1.73m2 Mildly decreased* 60 - 89 mL/min/1.73m2 Mildly to moderately decreased 45 - 59 mL/min/1.73m2 Moderately to severely decreased 30 - 44 mL/min/1.73m2 Severely decreased 15 - 29 mL/min/1.73m2 Kidney Failure < 15 mL/min/1.73m2 *Relative to young adult level Estimated glomerular filtration rate is determined by the 2020 CKD-EPI equation recommended by the [employer] (A Unifying Approach to GFR Estimation: Recommendations of the NKF-ASK Task Force on Reassessing the Inclusion of Race in Diagnosing Kidney Disease, JASN 2020). The CKD-EPI equation should not be used for patients with unstable renal function and has not been validated in children and those over 70. Current interpretive data was last reviewed 2021. Testing performed by: [facility], [address] [place] [address]., [address] Blood 01/01/2025 2:10 AM COMPUTER SYSTEM SPECIALIST 01/01/2025 2:16 AM COMPUTER SYSTEM SPECIALIST Tonny Pratt MD LAB BLOOD ORDERABLES Fin al Result Performing Organization Address [facility] Co de Phone Number NEO [address] Department [place] [address] * (ABNORMAL) Differential, auto (01/01/2025 2:10 AM COMPUTER SYSTEM SPECIALIST) Neutrophil abs 36.8(H) 1.5 - 6.5 K/cumm Comment:Testing performed by : [facility], [address] [place] [address], [place]., [address] Imm gran abs 0.6(H) 0.0 - 0.1 K/cumm CERNER Comment:Testing performed by : [facility], [address] [place] [address], [place]., [address] Lymphocyte abs 1.4 0.8 - 3.3 K/cumm CERNER Comment:Testing performed by : [address], [place]., [address] Monocyte abs 1.5(H) 0.2 - 0.8 K/cumm [facility] Comment:Testing performed by : [address], [place]., [address] Eosinophil abs 0.0 0.0 - 0.5 K/cumm [facility] Comment:Testing performed by : [address], [place]., [address] Basophil abs 0.1 0.0 - 0.1 K/cumm [facility] Comment:Testing performed by : [address] [address] Neutrophil pct 91.0 % [facility] Comment: Interpretive Data Percent cell count reference ranges are not reported, since discordance with absolute values may lead to misinterpretation of CBC data. Current Interpretive Data was last revised on 2018. Testing performed by: [address] [address] Imm gran pct 1.5 % CERNER Comment: Interpretive Data Percent cell count reference ranges are not reported, since discordance with absolute values may lead to misinterpretation of CBC data. Current Interpretive Data was last revised on 2018. Testing performed by: [address] [address] Lymphocyte pct 3.5 % CERNER Comment: Interpretive Data Percent cell count reference ranges are not reported, since discordance with absolute values may lead to misinterpretation of CBC data. Current Interpretive Data was last revised on 2018. Testing performed by: [address] [address] Monocyte pct 3.8 % CERNER Comment: Interpretive Data Percent cell count reference ranges are not reported, since discordance with absolute values may lead to misinterpretation of CBC data. Current Interpretive Data was last revised on 2018. Testing performed by: [address] [address] Eosinophil pct 0.0 % NEO Comment: Interpretive Data Percent cell count reference ranges are not reported, since discordance with absolute values may lead to misinterpretation of CBC data. Current Interpretive Data was last revised on 2018. Testing performed by: [address] [address] Basophil pct 0.2 % NEO Comment: Interpretive Data Percent cell count reference ranges are not reported, since discordance with absolute values may lead to misinterpretation of CBC data. Current Interpretive Data was last revised on 2018. Testing performed by: [address] [address] Blood 01/01/2025 2:10 AM COMPUTER SYSTEM SPECIALIST 01/01/2025 2:16 AM COMPUTER SYSTEM SPECIALIST Tonny Pratt MD LAB BLOOD ORDERABLES Fin al Result [facility] [address] [facility] Department [place] [address] * (ABNORMAL) CBC with auto differential (01/01/2025 2:10 AM COMPUTER SYSTEM SPECIALIST) WBC 40.4(H) 3.8 - 9.9 K/cumm Comment:Testing performed by : [address] [address] Hgb 14.0 13.0 - 17.5 g/dL NEO Comment:Testing performed by : [address] [address] Hct 40.1 38.9 - 50.3 % NEO Comment:Testing performed by : [address] [address] Plt 204 150 - 400 K/cumm NEO Comment:Testing performed by : [address] [address] MPV 10.6 9.1 - 12.3 fL NEO MAHARAJ Comment:Testing performed by : [address] [address] RBC 4.49 4.30 - 5.80 M/cumm NEO MAHARAJ Comment:Testing performed by : [address] [address] MCV 89.3 81.3 - 96.4 fL NEO MAHARAJ Comment:Testing performed by : [address] [address] MCH 31.2 27.1 - 33.3 pg NEO MAHARAJ Comment:Testing performed by : [address] [address] MCHC 34.9 32.3 - 35.7 g/dL NEO Comment:Testing performed by : [address] [address] RDW CV 12.7 11.1 - 14.9 % NEO Comment:Testing performed by : [address] [address] RDW SD 41.1 35.7 - 48.1 fL NEO Comment:Testing performed by : [address] [address] NRBC abs 0.00 0.00 - 0.01 K/cumm NEO Comment:Testing performed by : [address] [address] Blood 01/01/2025 2:10 AM COMPUTER SYSTEM SPECIALIST 01/01/2025 2:16 AM COMPUTER SYSTEM SPECIALIST us Tonny Pratt MD LAB BLOOD ORDERABLES Fin al Result [facility] [address] [facility] Department [place] [address] * Phosphorus (01/01/2025 2:10 AM COMPUTER SYSTEM SPECIALIST) [facility] Phosphorus, pl 2.7 2.3 - 4.5 mg/dL Comment:Testing performed by : [address] [address] Blood 01/01/2025 2:10 AM COMPUTER SYSTEM SPECIALIST 01/01/2025 2:16 AM COMPUTER SYSTEM SPECIALIST Tonny Pratt MD LAB BLOOD ORDERABLES Fin al Result Performing Organization Address [facility] de Phone Number [address] [address] * Magnesium (01/01/2025 2:10 AM COMPUTER SYSTEM SPECIALIST) [facility] Magnesium 1.8 1.4 - 2.5 mg/dL Comment:Testing performed by : [address] [address] Blood 01/01/2025 2:10 AM COMPUTER SYSTEM SPECIALIST 01/01/2025 2:16 AM COMPUTER SYSTEM SPECIALIST Tonny Pratt MD LAB BLOOD ORDERABLES Fin al Result Performing Organization Address [facility] Phone Number [address] [address] * (ABNORMAL) Basic metabolic panel (01/01/2025 2:10 AM COMPUTER SYSTEM SPECIALIST) [facility] Sodium 138 135 - 145 mmol/L Comment:Testing performed by : [address] [address] Potassium, pl 3.5 3.3 - 4.9 mmol/L NEO Comment:Testing performed by : [address] [address] Chloride 106 97 - 110 mmol/L NEO Comment:Testing performed by : [address] [address] CO2 22 22 - 32 mmol/L NEO Comment:Testing performed by : [address] [address] Anion gap 10 2 - 15 mmol/L NEO Comment:Testing performed by : [address] [address] BUN 12 6 - 25 mg/dL NEO Comment:Testing performed by : [address] [address] Creatinine 0.75(L) 0.80 - 1.30 mg/dL NEO Comment:Testing performed by : [address] [address] Glucose 132 70 - 199 mg/dL NEO Comment: Interpretive Data Fasting glucose >/= 126 mg/dl is diagnostic for diabetes. Fasting is defined as no caloric intake for at least 8 hours. Fasting glucose between 100 mg/dl to 125 mg/dl is diagnostic of prediabetes. In a patient with classic symptoms of hyperglycemia or hyperglycemic crisis, a random glucose >/= 200 mg/dl is diagnostic for diabetes. In the absence of unequivocal hyperglycemia, results should be confirmed by repeat testing. The classification and Diagnosis of Diabetes Diabetes Care 2021; 46: S19-S40. Current interpretive data was last revised 2022. Testing performed by: [address] [address] Calcium 8.3(L) 8.5 - 10.3 mg/dL NEO Comment:Testing performed by : [address] [address] Blood 01/01/2025 2:10 AM COMPUTER SYSTEM SPECIALIST 01/01/2025 2:16 AM COMPUTER SYSTEM SPECIALIST Tonny Pratt MD LAB BLOOD ORDERABLES Fin al Result Performing Organization Address City/State/[facility] Co de Phone Number NEO [address] [facility] Department [place] [address] * CT Chest PE (CTA) Abdomen Pelvis W Contrast (12/31/2024 8:20 PM COMPUTER SYSTEM SPECIALIST) Anatomical Region Laterality Modality Body N/A Computed Tomogra phy 12/31/2024 8:58 PM COMPUTER SYSTEM SPECIALIST Narrative 12/31/2024 9:08 PM COMPUTER SYSTEM SPECIALIST EXAM DESCRIPTION: CT CHEST PE (CTA) ABDOMEN PELVIS W CONTRAST REASON FOR STUDY: chest pain, abdominal pain, urinary frequency Pt reports last night started having chills, throughout day today began having urinary frequency and pain with urination, along with chest pain and lower abd pain. TECHNIQUE: CT angiogram of the chest with routine abdomen and pelvis performed with intravenous and without oral contrast using helical scanning technique with dynamic intravenous contrast injection. Reconstructed coronal and sagittal MPR images reviewed. All images stored on PACS. 3D MIP images of the chest rendered on scanning unit and reviewed at time of interpretation. Automated exposure control was used as a dose optimization technique for this examination. CONTRAST TYPE/DOSE: 100mL of IOVERSOL 350 MG IODINE/ML INTRAVENOUS SYRINGE injected via intravenous COMPARISON: 12/31/2024 FINDINGS: CHEST CHEST VASCULATURE: No acute pulmonary thromboembolism. LUNGS: Mosaic lung attenuation is identified. This could represent air trapping or ground-glass opacity from an acute or infectious process such as viral pneumonia. No focal consolidation is identified. No suspicious pulmonary nodule. The central airways are patent. Subsegmental atelectasis in the lung bases. PLEURA: No effusion. No pneumothorax. MEDIASTINUM/BLANQUITA: No identified masses or abnormal nodes. HEART: Mild cardiomegaly. No pericardial effusion is identified. AXILLA: No adenopathy. CHEST WALL: No masses. No subcutaneous air. HARDWARE/LINES/TUBES: None. MUSCULOSKELETAL CHEST: No significant abnormality. ABDOMEN/PELVIS LIVER: Normal size. No identified cystic or solid masses. GALLBLADDER: No stones identified. No wall thickening or inflammatory changes. BILE DUCTS: No intrahepatic or extrahepatic ductal dilatation. SPLEEN: Normal size. No focal lesions. PANCREAS: No identified cystic or solid masses. No significant calcifications. No adjacent inflammation or peripancreatic fluid collections. Pancreatic duct not dilated. ADRENALS: Normal. KIDNEYS/URINARY TRACT: No identified significant cystic or solid masses. No visualized stones. No hydronephrosis or hydroureter. Symmetric enhancement. There is mild bladder wall thickening which is likely partially due to decompression. Mild fat stranding surrounding the urinary bladder is noted. GI: No dilated bowel loops. No obvious wall thickening. Normal appendix. No significant diverticular disease. PERITONEUM: No ascites or free air. RETROPERITONEUM: No mass or adenopathy. REPRODUCTIVE: The prostate is enlarged measuring 6.5 cm in transverse dimension. There is moderate fat stranding surrounding the prostate which is concerning for prostatitis. No prostate abscess is identified. VASCULATURE ABDOMEN: No abdominal aortic aneurysm. MUSCULOSKELETAL ABDOMEN PELVIS: The S1 vertebral body appears to be partially lumbarized. There is a large partially calcified disc protrusion at L5-S1 with suspected at least moderate left recess stenosis and moderate spinal canal stenosis. OTHER: No significant abnormality. IMPRESSION: No acute pulmonary embolism. The prostate is enlarged measuring 6.5 cm in transverse dimension. There is moderate fat stranding surrounding the prostate which most likely represents prostatitis. No prostate abscess is identified. There is also evidence of cystitis. Mosaic lung attenuation may be due to air trapping or an acute infectious or inflammatory process such as viral pneumonia. A large partially calcified disc protrusion at L5-S1 may result in moderate spinal canal and lateral recess stenosis. THIS IS AN ELECTRONICALLY VERIFIED FINAL REPORT 12/31/2024 9:08 PM - Electronically signed by Carlo Helm M.D. MM: MM Report ID: [id number] [place] Location: [place] [address] Procedure Note Carlo Helm MD - 12/31/2024 EXAM DESCRIPTION: CT CHEST PE (CTA) ABDOMEN PELVIS W CONTRAST REASON FOR STUDY: chest pain, abdominal pain, urinary frequency Pt reports last night started having chills, throughout day today beganhaving urinary frequency and pain with urination, along with chest pain and lowerabd pain. TECHNIQUE: CT angiogram of the chest with routine abdomen and pelvisperformed with intravenous and without oral contrast using helical scanningtechnique with dynamic intravenous contrast injection. Reconstructed coronal and sagittal MPR images reviewed. All images stored on PACS. 3D MIP images ofthe chest rendered on scanning unit and reviewed at time of interpretation. Automated exposure control was used as a dose optimization technique forthis examination. CONTRAST TYPE/DOSE: 100mL of IOVERSOL 350 MG IODINE/ML INTRAVENOUS SYRINGE injected via intravenous COMPARISON: 12/31/2024 FINDINGS: CHEST CHEST VASCULATURE: No acute pulmonary thromboembolism. LUNGS: Mosaic lung attenuation is identified. This could represent air trapping or ground-glass opacity from an acute or infectious process suchas viral pneumonia. No focal consolidation is identified. No suspicious pulmonary nodule. The central airways are patent. Subsegmentalatelectasis in the lung bases. PLEURA: No effusion. No pneumothorax. MEDIASTINUM/BLANQUITA: No identified masses or abnormal nodes. HEART: Mild cardiomegaly. No pericardial effusion is identified. AXILLA: No adenopathy. CHEST WALL: No masses. No subcutaneous air. HARDWARE/LINES/TUBES: None. MUSCULOSKELETAL CHEST: No significant abnormality. ABDOMEN/PELVIS LIVER: Normal size. No identified cystic or solid masses. GALLBLADDER: No stones identified. No wall thickening or inflammatory changes. BILE DUCTS: No intrahepatic or extrahepatic ductal dilatation. SPLEEN: Normal size. No focal lesions. PANCREAS: No identified cystic or solid masses. No significant calcifications. No adjacent inflammation or peripancreatic fluidcollections. Pancreatic duct not dilated. ADRENALS: Normal. KIDNEYS/URINARY TRACT: No identified significant cystic or solid masses.No visualized stones. No hydronephrosis or hydroureter. Symmetricenhancement. There is mild bladder wall thickening which is likely partially due to decompression. Mild fat stranding surrounding the urinary bladder isnoted. GI: No dilated bowel loops. No obvious wall thickening. Normal appendix.No significant diverticular disease. PERITONEUM: No ascites or free air. RETROPERITONEUM: No mass or adenopathy. REPRODUCTIVE: The prostate is enlarged measuring 6.5 cm in transverse dimension. There is moderate fat stranding surrounding the prostate whichis concerning for prostatitis. No prostate abscess is identified. VASCULATURE ABDOMEN: No abdominal aortic aneurysm. MUSCULOSKELETAL ABDOMEN PELVIS: The S1 vertebral body appears to bepartially lumbarized. There is a large partially calcified disc protrusion at L5-S1 with suspected at least moderate left recess stenosis and moderate spinal canal stenosis. OTHER: No significant abnormality. IMPRESSION: No acute pulmonary embolism. The prostate is enlarged measuring 6.5 cm in transverse dimension. Thereis moderate fat stranding surrounding the prostate which most likelyrepresents prostatitis. No prostate abscess is identified. There is also evidenceof cystitis. Mosaic lung attenuation may be due to air trapping or an acute infectiousor inflammatory process such as viral pneumonia. A large partially calcified disc protrusion at L5-S1 may result inmoderate spinal canal and lateral recess stenosis. THIS IS AN ELECTRONICALLY VERIFIED FINAL REPORT 12/31/2024 9:08 PM - Electronically signed by Carlo Helm M.D. MM: MM Report ID: [id number] [place] Location: [id number] us Bruna Martinetarsha Dyer SMOKEHOUSE OPERATOR IMG CT PROCEDURES Final Result * Troponin T high-sensitivity 2-hour (12/31/2024 8:11 PM COMPUTER SYSTEM SPECIALIST) Pathologist [facility] Trop T hs 7 <=22 ng/L Comment: Interpretive Data For further hscTnT resources including the diagnostic algorithm and an aid in interpretation, copy and paste this link: [email or web address].testcatalog.org/[email or web address] Current Interpretive Data last revised 2020. Testing performed by: [address] [address] Trop T hs delta 1 ng/L NEO MAHARAJ Comment:Testing performed by : [address] [address] Trop T hs interp Insignificant NEO MAHARAJ Comment:Testing performed by : [address] [address] Blood 12/31/2024 8:11 PM COMPUTER SYSTEM SPECIALIST 12/31/2024 8:15 PM COMPUTER SYSTEM SPECIALIST us Mariana HOUSTON LAB BLOOD ORDERABLES Final Resu lt NEO [address] [facility] Department [place] [address] * (ABNORMAL) CBC with auto differential (12/31/2024 7:14 PM COMPUTER SYSTEM SPECIALIST) [facility] WBC 47.3(H) 3.8 - 9.9 K/cumm Comment:Testing performed by : [address] [address] Hgb 15.9 13.0 - 17.5 g/dL NEO MAHARAJ Comment:Testing performed by : [address] [address] Hct 45.0 38.9 - 50.3 % NEO MAHARAJ Comment:Testing performed by : [address] [address] Plt 237 150 - 400 K/cumm NEO MAHARAJ Comment:Testing performed by : [address] [address] MPV 10.8 9.1 - 12.3 fL NEO MAHARAJ Comment:Testing performed by : [address] [address] RBC 5.08 4.30 - 5.80 M/cumm NEO MAHARAJ Comment:Testing performed by : [address] [address] MCV 88.6 81.3 - 96.4 fL NEO MAHARAJ Comment:Testing performed by : [address] [address] MCH 31.3 27.1 - 33.3 pg NEO MAHARAJ Comment:Testing performed by : [address] [address] MCHC 35.3 32.3 - 35.7 g/dL NEO Comment:Testing performed by : [address] [address] RDW CV 12.4 11.1 - 14.9 % NEO Comment:Testing performed by : [address] [address] RDW SD 40.3 35.7 - 48.1 fL NEO Comment:Testing performed by : [address] [address] NRBC abs 0.00 0.00 - 0.01 K/cumm NEO MAHARAJ Comment:Testing performed by : [address] [address] Blood 12/31/2024 7:14 PM COMPUTER SYSTEM SPECIALIST 12/31/2024 7:26 PM COMPUTER SYSTEM SPECIALIST us Bruna Dyer SMOKEHOUSE OPERATOR LAB BLOOD ORDERABLES Fin al Result NEO [address] [facility] Department [place] [address] * (ABNORMAL) Manual Differential (12/31/2024 7:14 PM COMPUTER SYSTEM SPECIALIST) Differential Manual Comment:Testing performed by : [address] [address] Cells Counted 100 NEO MAHARAJ Comment:Testing performed by : [address] [address] Neutrophil abs 44.0(H) 1.5 - 6.5 K/cumm NEO Comment:Testing performed by : [address] [address] Lymphocyte abs 2.4 0.8 - 3.3 K/cumm NEO Comment:Testing performed by : [address] [address] Monocyte abs 1.0(H) 0.2 - 0.8 K/cumm NEO Comment:Testing performed by : [address] [address] Neutrophil pct 93.0 % NEO Comment: Interpretive Data Percent cell count reference ranges are not reported, since discordance with absolute values may lead to misinterpretation of CBC data. Current Interpretive Data was last revised on 2018. Testing performed by: [address] [address] Lymphocyte pct 5.0 % NEO Comment: Interpretive Data Percent cell count reference ranges are not reported, since discordance with absolute values may lead to misinterpretation of CBC data. Current Interpretive Data was last revised on 2018. Testing performed by: [address] [address] Monocyte pct 2.0 % NEO Comment: Interpretive Data Percent cell count reference ranges are not reported, since discordance with absolute values may lead to misinterpretation of CBC data. Current Interpretive Data was last revised on 2018. Testing performed by: [address] [address] RBC morphology Consistent with RBC Indicies NEO Comment:Testing performed by : [address] [address] Platelet estimate #A#CAC NEO Comment:Testing performed by : [address] [address] Blood 12/31/2024 7:14 PM COMPUTER SYSTEM SPECIALIST 12/31/2024 7:26 PM COMPUTER SYSTEM SPECIALIST Brunasa Martine Dyer SMOKEHOUSE OPERATOR LAB BLOOD ORDERABLES Fin al Result Performing Organization Address City/[facility]/ZIP Co de Phone Number NEO [address] [place] [address] * Blood culture Blood Peripheral (12/31/2024 7:14 PM COMPUTER SYSTEM SPECIALIST) Report Final Report: No growth Comment:Testing performed by : [facility], [address] [place]., [address] Blood (Peripheral) 12/31/2024 7:14 PM COMPUTER SYSTEM SPECIALIST 12/31/2024 10:13 PM COMPUTER SYSTEM SPECIALIST Narrative NEO - 01/05/2025 7:01 AM COMPUTER SYSTEM SPECIALIST From a different site than #1. Draw Blood cultures before administration of Antibiotics Collection->Peripheral 1. Blood cultures are incubated for 4 days on a continuously monitored blood culture system. The first report of a negative culture is issued within 24 hours of receipt of the specimen in the laboratory. 2. Positive culture results are reported as soon as they are detected. 3. The most important factor for detection of microbes in the setting of bloodstream infection is the volume of blood submitted for culture. Failure to collect an optimal blood volume can result in false negative blood cultures. 4. For pediatric patients, the recommended blood volume to collect follows a weight based strategy. See the electronic test catalog for collection instructions. 5. For positive blood cultures, a rapid molecular test may be performed for organism identification using the temitope ePlex blood culture identification panel for gram positive (BCID-GP) and gram negative (BCID-GN) organisms. This nucleic acid amplification test detects microbial DNA in positive blood culture broth. This assay has been cleared by the [place] Food and Drug Administration and its performance characteristics have been verified by the [facility] Microbiology Laboratory. For questions about this culture, contact the Microbiology Laboratory at [phone]. Interpretive data was last revised on 24. Brunasa Martine Dyre NP LAB MICROBIOLOGY - GENER AL ORDERABLES Final Result NEO [address] Department [employer] [place] [address] * Sepsis Lactate w/ Reflex (12/31/2024 7:05 PM COMPUTER SYSTEM SPECIALIST) Sepsis Lactate 1.4 0.7 - 2.0 mmol/L Comment:Testing performed by : [facility], [address] [place] [address], [place]., [address] Blood 12/31/2024 7:05 PM COMPUTER SYSTEM SPECIALIST 12/31/2024 7:23 PM COMPUTER SYSTEM SPECIALIST Mariana HOUSTON LAB BLOOD ORDERABLES Final Resu lt [facility] [address] [facility] Department [place] [address] * Blood culture Blood Peripheral (12/31/2024 7:05 PM COMPUTER SYSTEM SPECIALIST) Report Final Report: No growth Comment:Testing performed by : [facility], [address] [place]., [address] Blood (Peripheral) 12/31/2024 7:05 PM COMPUTER SYSTEM SPECIALIST 12/31/2024 10:08 PM COMPUTER SYSTEM SPECIALIST Narrative NEO - 01/05/2025 7:01 AM COMPUTER SYSTEM SPECIALIST Draw Blood cultures before administration of Antibiotics Collection->Peripheral 1. Blood cultures are incubated for 4 days on a continuously monitored blood culture system. The first report of a negative culture is issued within 24 hours of receipt of the specimen in the laboratory. 2. Positive culture results are reported as soon as they are detected. 3. The most important factor for detection of microbes in the setting of bloodstream infection is the volume of blood submitted for culture. Failure to collect an optimal blood volume can result in false negative blood cultures. 4. For pediatric patients, the recommended blood volume to collect follows a weight based strategy. See the electronic test catalog for collection instructions. 5. For positive blood cultures, a rapid molecular test may be performed for organism identification using the temitope ePlex blood culture identification panel for gram positive (BCID-GP) and gram negative (BCID-GN) organisms. This nucleic acid amplification test detects microbial DNA in positive blood culture broth. This assay has been cleared by the [place] Food and Drug Administration and its performance characteristics have been verified by the [facility] Microbiology Laboratory. For questions about this culture, contact the Microbiology Laboratory at [phone]. Interpretive data was last revised on 24. us Bruna Dyer NP LAB MICROBIOLOGY - [facility] AL ORDERABLES Final Result NEO [address] [facility] Department [place] [address] * XR Chest 1 Vw Portable (if patient condition/safety warrant portable) (12/31/2024 6:10 PM COMPUTER SYSTEM SPECIALIST) Anatomical Region Laterality Modality Body, Chest N/A Computed Radiogr aphy 12/31/2024 7:06 PM COMPUTER SYSTEM SPECIALIST Narrative 12/31/2024 7:08 PM COMPUTER SYSTEM SPECIALIST EXAM DESCRIPTION: XR CHEST 1 VIEW REASON FOR STUDY: chest pain Pt reports last night started having chills, throughout day today began having urinary frequency and pain with urination, along with chest pain and lower abd pain TECHNIQUE: Single radiographic view(s) of the chest. COMPARISON: None FINDINGS: LUNGS: Allowing for overlying soft tissues, the lungs appear grossly clear. No consolidation or effusion is seen. HEART/MEDIASTINUM: Cardiac silhouette normal in size. Mediastinal and hilar contours appear normal. LINES/TUBES: None. BONES: No acute osseous abnormality. IMPRESSION: No acute cardiopulmonary abnormality. THIS IS AN ELECTRONICALLY VERIFIED FINAL REPORT 12/31/2024 7:08 PM - Electronically signed by Abdias Johnson M.D. KH: CECE Report ID: [id number] Reading Location: [id number] Procedure Note Abdias Johnson MD - 12/31/2024 EXAM DESCRIPTION: XR CHEST 1 VIEW REASON FOR STUDY: chest pain Pt reports last night started having chills, throughout day today beganhaving urinary frequency and pain with urination, along with chest pain and lowerabd pain TECHNIQUE: Single radiographic view(s) of the chest. COMPARISON: None FINDINGS: LUNGS: Allowing for overlying soft tissues, the lungs appear grossly clear. No consolidation or effusion is seen. HEART/MEDIASTINUM: Cardiac silhouette normal in size. Mediastinal andhilar contours appear normal. LINES/TUBES: None. BONES: No acute osseous abnormality. IMPRESSION: No acute cardiopulmonary abnormality. THIS IS AN ELECTRONICALLY VERIFIED FINAL REPORT 12/31/2024 7:08 PM - Electronically signed by Abdias Johnson M.D. KH: CECE Report ID: [id number] Reading Location: [place] [address] us Gerard Burrows DO IMG XR PROCEDURES Final Result * (ABNORMAL) Urinalysis reflex to microscopic and culture Urine, clean voided (12/31/2024 6:07 PM COMPUTER SYSTEM SPECIALIST) Color, ur Charu Yellow Comment:Testing performed by : [address] [address] Clarity, ur Cloudy(A) Clear NEO Comment:Testing performed by : [address] [address] Specific gravity, ur 1.025 1.003 - 1.030 NEO Comment:Testing performed by : [address] [address] pH, urine 5.5 NEO Comment: Interpretive Data U rine pH is affected by diet, medications, systemic acid-base disturbances, and renal tubular function. pH may affect urinary stone formation. For example, urine pH below 6.0 may help reduce the tendency for calcium phosphate stones and pH greater than 6.0 may reduce the tendency for uric acid stone formation. Source: [facility] [employer] Current Interpretive Data was last revised on 2017 Testing performed by: [address] [address] Protein, ur ql 1+(A) Negative NEO Comment:Testing performed by : [address] [address] Glucose, ur ql Trace(A) Negative NEO Comment:Testing performed by : [address] [address] Ketones, ur Negative Negative NEO MAHARAJ Comment:Testing performed by : [facility], [address] [place] [address], [place]., [address] Bilirubin, ur Negative Negative NEO MAHARAJ Comment:Testing performed by : [address], [place]., [address] Blood, ur 3+(A) Negative NEO MAHARAJ Comment:Testing performed by : [address], [place]., [address] Urobilinogen, ur <2.0 <2.0 mg/dL NEO MAHARAJ Comment:Testing performed by : [address], [place]., [address] Nitrite, ur Negative Negative NEO MAHARAJ Comment:Testing performed by : [address], [place]., [address] Leukocyte esterase, ur 4+(A) Negative NEO MAHARAJ Comment:Testing performed by : [address], [place]., [address] UA reflex comment Reflex to microscopic UA will be performed. NEO MAHARAJ Comment:Testing performed by : [address], [place]., [address] Urine, clean voided 12/31/2024 6:07 PM COMPUTER SYSTEM SPECIALIST 12/31/2024 6:14 PM COMPUTER SYSTEM SPECIALIST Gerard Burrows DO LAB MICROBIOLOGY - GENERAL ORD ERABLES Final Result NEO [address] [facility] Department of Laboratories [place], [place] [id number] * (ABNORMAL) Urinalysis, microscopic only (12/31/2024 6:07 PM COMPUTER SYSTEM SPECIALIST) WBC, ur >50(A) 0 - 5 /HPF Comment:Testing performed by : [address] [address] RBC, ur >50(A) 0 - 2 /HPF NEO MAHARAJ Comment:Testing performed by : [address], [place]., [address] Epithelial cells, squamous, ur 21-50(A) 0 - 5 /HPF NEO MAHARAJ Comment:Testing performed by : [facility], [address] [place] [address]., [address] Bacteria, ur 3+(A) NEO MAHARAJ Comment:Testing performed by : [address] [address] Mucous, ur Present(A) NEO MAHARAJ Comment:Testing performed by : [facility], [address] [place] [address]., [address] Culture Reflex Comment Reflex to urine culture will be performed. NEO Comment:Testing performed by : [address] [address] Urine, clean voided 12/31/2024 6:07 PM COMPUTER SYSTEM SPECIALIST 12/31/2024 6:14 PM COMPUTER SYSTEM SPECIALIST us Gerard Burrows DO LAB URINE ORDERABLES Final Res ult NEO MAHARAJ [address] [facility] Department [place] [address] * (ABNORMAL) Urine culture Urine, clean voided (12/31/2024 6:07 PM COMPUTER SYSTEM SPECIALIST) Report Final Report: Greater than or equal to 100,000 colonies/mL of Escherichia coli Plus growth of clinically insignificant bacterial db. (.) Comment:Testing performed by : [facility], [address] [place] [address] Organism ESCHERICHIA COLI NEO Organism PLUS GROWTH OF CLINICALLY INSIGNIFICANT DB. NEO MAHARAJ Urine, clean voided 12/31/2024 6:07 PM COMPUTER SYSTEM SPECIALIST 12/31/2024 10:11 PM COMPUTER SYSTEM SPECIALIST Narrative NEO - 01/02/2025 3:08 PM COMPUTER SYSTEM SPECIALIST Urine culture reflexed based upon urinalysis results. Testing performed by [facility] Microbiology [facility] ([phone]) Organism Antibiotic Method Susceptibility Escherichia coli Ampicillin INTERPRETATION Resistant Escherichia coli Cefazolin INTERPRETATION Susceptible Escherichia coli Nitrofurantoin INTERPRETATION Susceptible Escherichia coli Gentamicin INTERPRETATION Susceptible Escherichia coli Trimethoprim with Sulfamethoxazole IN TERPRETATION Susceptible Escherichia coli Meropenem INTERPRETATION Susceptible Escherichia coli Cefepime INTERPRETATION Susceptible Escherichia coli Ciprofloxacin INTERPRETATION Susceptible Escherichia coli Ceftazidime INTERPRETATION Susceptible Escherichia coli Ceftriaxone INTERPRETATION Susceptible Escherichia coli Piperacillin/Tazobactam INTERPRETATIO N Susceptible Escherichia coli Cephalexin INTERPRETATION Susceptible Escherichia coli Cefuroxime-axetil INTERPRETATION Susceptible Escherichia coli Cefdinir INTERPRETATION Susceptible Mariana HOUSTON LAB MICROBIOLOGY - GENERAL ORDE RABLES Final Result Performing Organization Address [facility] de Phone Number [address] [address] * Troponin T high-sensitivity series (baseline, 2hr, 4hr, 6hr) (12/31/2024 5:58 PM COMPUTER SYSTEM SPECIALIST) Pathologist [facility] Trop T hs <6 <=22 ng/L Comment: Interpretive Data For further hscTnT resources including the diagnostic algorithm and an aid in interpretation, copy and paste this link: [email or web address].[email or web address] Current Interpretive Data last revised 2020. Testing performed by: [address] [address] Blood 12/31/2024 5:58 PM COMPUTER SYSTEM SPECIALIST 12/31/2024 6:14 PM COMPUTER SYSTEM SPECIALIST Gerard Burrows DO LAB BLOOD ORDERABLES Final Res ult Performing Organization Address [facility] Co de Phone Number [address] [address] * Influenza A/B, RSV, and COVID-19 PCR Nasopharyngeal (12/31/2024 5:58 PM COMPUTER SYSTEM SPECIALIST) [facility] COVID-19 RNA Negative Negative Comment:Testing performed by : [address] [address] Influenza A RNA Negative Negative NEO Comment:Testing performed by : [address] [address] Influenza B RNA Negative Negative NEO Comment:Testing performed by : [address] [address] RSV RNA Negative Negative NEO Comment: Interpretive data: Testing performed by [facility]. This test is performed using the [employer] Xpert Xpress CoV-2/Flu/RSV plus assay. This is a multiplex, real-time reverse transcriptase PCR assay intended for the qualitative detection of nucleic acid from SARS-CoV-2, influenza A, influenza B, and respiratory syncytial virus. This assay has been cleared by the [place] Food and Drug administration. The performance characteristics have been verified by the [facility]. Results must be considered in the clinical context, and a negative result does not rule out infection. Interpretive Data last revised 2023 Testing performed by: [facility], [address] [place] [address]., [address] Nasopharyngeal 12/31/2024 5: 58 PM COMPUTER SYSTEM SPECIALIST 12/31/2024 6:15 PM COMPUTER SYSTEM SPECIALIST [facility] NEO - 12/31/2024 6:54 PM COMPUTER SYSTEM SPECIALIST Is the Patient experiencing symptoms consistent with COVID?->Yes aMriana HOUSTON LAB MICROBIOLOGY - GENERAL BRIGITTE EDDY Final Result NEO [address] [facility] Department [place] [address] * eGFR (12/31/2024 5:58 PM COMPUTER SYSTEM SPECIALIST) eGFR >90 >=60 mL/min/1. 73 m2 Comment: Interpretive Data Reference Interval Normal >/= 90 mL/min/1.73m2 Mildly decreased* 60 - 89 mL/min/1.73m2 Mildly to moderately decreased 45 - 59 mL/min/1.73m2 Moderately to severely decreased 30 - 44 mL/min/1.73m2 Severely decreased 15 - 29 mL/min/1.73m2 Kidney Failure < 15 mL/min/1.73m2 *Relative to young adult level Estimated glomerular filtration rate is determined by the 2020 CKD-EPI equation recommended by the National Kidney Foundation (A Unifying Approach to GFR Estimation: Recommendations of the NKF-ASK Task Force on Reassessing the Inclusion of Race in Diagnosing Kidney Disease, JASN 2020). The CKD-EPI equation should not be used for patients with unstable renal function and has not been validated in children and those over 70. Current interpretive data was last reviewed 2021. Testing performed by: [address] [address] Blood 12/31/2024 5:58 PM COMPUTER SYSTEM SPECIALIST 12/31/2024 6:14 PM COMPUTER SYSTEM SPECIALIST us Gerard Markos DO LAB BLOOD ORDERABLES Final Res ult [facility] [address] [facility] Department [place] [address] * (ABNORMAL) Differential, auto (12/31/2024 5:58 PM COMPUTER SYSTEM SPECIALIST) Neutrophil abs 40.5(H) 1.5 - 6.5 K/cumm Comment:Testing performed by : [address] [address] Imm gran abs 0.8(H) 0.0 - 0.1 K/cumm NEO Comment:Testing performed by : [address] [address] Lymphocyte abs 1.5 0.8 - 3.3 K/cumm NEO Comment:Testing performed by : [address] [address] Monocyte abs 1.7(H) 0.2 - 0.8 K/cumm NEO Comment:Testing performed by : [address] [address] Eosinophil abs 0.0 0.0 - 0.5 K/cumm NEO Comment:Testing performed by : [address] [address] Basophil abs 0.1 0.0 - 0.1 K/cumm NEO Comment:Testing performed by : [address] [address] Neutrophil pct 91.1 % NEO Comment: Interpretive Data Percent cell count reference ranges are not reported, since discordance with absolute values may lead to misinterpretation of CBC data. Current Interpretive Data was last revised on 2018. Testing performed by: [address] [address] Imm gran pct 1.7 % [facility] Comment: Interpretive Data Percent cell count reference ranges are not reported, since discordance with absolute values may lead to misinterpretation of CBC data. Current Interpretive Data was last revised on 2018. Testing performed by: [address] [address] Lymphocyte pct 3.3 % [facility] Comment: Interpretive Data Percent cell count reference ranges are not reported, since discordance with absolute values may lead to misinterpretation of CBC data. Current Interpretive Data was last revised on 2018. Testing performed by: [address] [address] Monocyte pct 3.7 % [facility] Comment: Interpretive Data Percent cell count reference ranges are not reported, since discordance with absolute values may lead to misinterpretation of CBC data. Current Interpretive Data was last revised on 2018. Testing performed by: [address] [address] Eosinophil pct 0.0 % [facility] Comment: Interpretive Data Percent cell count reference ranges are not reported, since discordance with absolute values may lead to misinterpretation of CBC data. Current Interpretive Data was last revised on 2018. Testing performed by: [address] [address] Basophil pct 0.2 % [facility] Comment: Interpretive Data Percent cell count reference ranges are not reported, since discordance with absolute values may lead to misinterpretation of CBC data. Current Interpretive Data was last revised on 2018. Testing performed by: [address] [address] Blood 12/31/2024 5:58 PM COMPUTER SYSTEM SPECIALIST 12/31/2024 6:14 PM COMPUTER SYSTEM SPECIALIST us Gerard Burrows DO LAB BLOOD ORDERABLES Final Res ult NEO MAHARAJ [address] [facility] Department of Laboratories [place], [place] [id number] * (ABNORMAL) CBC with auto differential (12/31/2024 5:58 PM COMPUTER SYSTEM SPECIALIST) [facility] WBC 44.6(H) 3.8 - 9.9 K/cumm Comment:Testing performed by : [address], [address] Hgb 15.2 13.0 - 17.5 g/dL NEO Comment:Testing performed by : [address], [address] Hct 42.9 38.9 - 50.3 % NEO Comment:Testing performed by : [address], [address] Plt 240 150 - 400 K/cumm NEO Comment:Testing performed by : [address], [address] MPV 10.6 9.1 - 12.3 fL NEO Comment:Testing performed by : [address], [address] RBC 4.84 4.30 - 5.80 M/cumm NEO Comment:Testing performed by : [address], [address] MCV 88.6 81.3 - 96.4 fL NEO Comment:Testing performed by : [address], [address] MCH 31.4 27.1 - 33.3 pg NEO Comment:Testing performed by : [address], [address] MCHC 35.4 32.3 - 35.7 g/dL NEO Comment:Testing performed by : [address], [address] RDW CV 12.4 11.1 - 14.9 % NEO Comment:Testing performed by : [address], [address] RDW SD 40.0 35.7 - 48.1 fL NEO Comment:Testing performed by : [address], [address] NRBC abs 0.00 0.00 - 0.01 K/cumm NEO Comment:Testing performed by : [address] [address] Blood Venous blood specimen / Unknown 12/31/2024 5:58 PM COMPUTER SYSTEM SPECIALIST 12/31/2024 6:14 PM COMPUTER SYSTEM SPECIALIST Gerard Burrows [employer] LAB BLOOD ORDERABLES Final Res ult Performing Organization Address [facility] Co de Phone Number [address] [address] * Manual Differential (12/31/2024 5:58 PM COMPUTER SYSTEM SPECIALIST) Differential Manual Comment:Testing performed by : [address] [address] Blood 12/31/2024 5:58 PM COMPUTER SYSTEM SPECIALIST 12/31/2024 6:14 PM COMPUTER SYSTEM SPECIALIST Gerard [employer] LAB BLOOD ORDERABLES Final Res ult Performing Organization Address [facility] de Phone Number [address] [address] * Lipase (12/31/2024 5:58 PM COMPUTER SYSTEM SPECIALIST) Pathologist [facility] Lipase 15 10 - 99 Units/L Comment:Testing performed by : [address] [address] Blood 12/31/2024 5:58 PM COMPUTER SYSTEM SPECIALIST 12/31/2024 6:14 PM COMPUTER SYSTEM SPECIALIST Gerard Gremln LAB BLOOD ORDERABLES Final Res ult Performing Organization Address [facility] de Phone Number [address] [address] * (ABNORMAL) Comprehensive metabolic panel (12/31/2024 5:58 PM COMPUTER SYSTEM SPECIALIST) Pathologist [facility] Sodium 136 135 - 145 mmol/L Comment:Testing performed by : [address] [address] Potassium, pl 3.4 3.3 - 4.9 mmol/L NEO Comment:Testing performed by : [address], [place]., [address] Chloride 98 97 - 110 mmol/L NEO Comment:Testing performed by : [address], [place]., [address] CO2 22 22 - 32 mmol/L NEO Comment:Testing performed by : [address], [place]., [address] Anion gap 16(H) 2 - 15 mmol/L NEO Comment:Testing performed by : [address], [place]., [address] BUN 14 6 - 25 mg/dL NEO Comment:Testing performed by : [address], [place]., [address] Creatinine 0.90 0.80 - 1.30 mg/dL NEO Comment:Testing performed by : [address], [place]., [address] Glucose 150 70 - 199 mg/dL NEO Comment: Interpretive Data Fasting glucose >/= 126 mg/dl is diagnostic for diabetes. Fasting is defined as no caloric intake for at least 8 hours. Fasting glucose between 100 mg/dl to 125 mg/dl is diagnostic of prediabetes. In a patient with classic symptoms of hyperglycemia or hyperglycemic crisis, a random glucose >/= 200 mg/dl is diagnostic for diabetes. In the absence of unequivocal hyperglycemia, results should be confirmed by repeat testing. The classification and Diagnosis of Diabetes Diabetes Care 2021; 46: S19-S40. Current interpretive data was last revised 2022. Testing performed by: [address] [address] Calcium 9.1 8.5 - 10.3 mg/dL NEO Comment:Testing performed by : [address] [address] Bilirubin, total 1.0 0.1 - 1.2 mg/dL NEO Comment:Testing performed by : [address], [place]., [address] Protein, pl 7.3 6.5 - 8.5 g/dL NEO Comment:Testing performed by : [address] [address] Albumin 4.0 3.5 - 5.0 g/dL NEO Comment:Testing performed by : [address], [address] Alk phos 91 40 - 130 Units/L NEO Comment:Testing performed by : [address], [address] ALT 15 7 - 55 Units/L NEO Comment:Testing performed by : [address], [address] AST 14 10 - 50 Units/L NEO Comment:Testing performed by : [address], [address] Blood 12/31/2024 5:58 PM COMPUTER SYSTEM SPECIALIST 12/31/2024 6:14 PM COMPUTER SYSTEM SPECIALIST Gerard Burrows DO LAB BLOOD ORDERABLES Final Res ult Performing Organization Address [facility] de Phone Number [facility] [address] [facility] Department of Laboratories [place], [place] [id number] * ECG 12 lead (12/31/2024 5:53 PM COMPUTER SYSTEM SPECIALIST) Ventricular Rate EKG/Min 103 BPM [facility] Atrial Rate 103 BPM [facility] TX-Interval (MSEC) 150 ms [facility] QRS-Interval (MSEC) 92 ms [facility] QT-Interval (MSEC) 332 ms [facility] QTc 434 ms [facility] P Start -5 degrees [facility] R Start 24 degrees [facility] T Start 1 degrees [facility] Diagnosis Sinus tachycardia Possible Inferior infarct , age undetermined Abnormal ECG No previous ECGs available Confirmed by MAKAYLA THOMPSON M.D. ([id number]) on 01/01/2025 9:25:50 PM [facility] 12/31/2024 5:53 PM COMPUTER SYSTEM SPECIALIST 01/01/2025 9:25 PM COMPUTER SYSTEM SPECIALIST Gerard Burrows DO ECG ORDERABLES Final Result Performing Organization Address [facility] Co de Phone Number [facility] * [place] ARTHROCENTESIS ASPIR&/INJ MAJOR JT/BURSA W/O US (12/21/2024 2:15 PM COMPUTER SYSTEM SPECIALIST) Narrative Makayla Michaels PA - 12/21/2024 2:15 PM COMPUTER SYSTEM SPECIALIST Makayla Michaels PA 12/21/2024 2:05 PM Large Joint (Hip, Knee, Shoulder) Injection: bilateral knee Performed by: Makayla Michaels PA Authorized by: Makayla Michaels PA Large Joint Injection/Aspiration: Consent Given by: Patient Verbal consent obtained: Yes Supporting Documentation: Indications: Pain Procedure Details: Location: Knee Site: Bilateral knee Prep: patient was prepped using a clean technique Needle Size: 22 G Ultrasound guided: No Medications Right Large Joint Injection: 1 mL lidocaine 10 mg/mL (1 %); 40 mg triamcinolone 40 mg/mL Medications Left Large Joint Injection: 1 mL lidocaine 10 mg/mL (1 %); 40 mg triamcinolone 40 mg/mL Patient tolerance: Patient tolerated the procedure well with no immediate complications Makayla [facility]/BEDSIDE ORDERAB LES Final Result * eGFR (12/13/2024 9:50 AM COMPUTER SYSTEM SPECIALIST) eGFR >90 >=60 mL/min/1. 73 m2 Comment: Interpretive Data Reference Interval Normal >/= 90 mL/min/1.73m2 Mildly decreased* 60 - 89 mL/min/1.73m2 Mildly to moderately decreased 45 - 59 mL/min/1.73m2 Moderately to severely decreased 30 - 44 mL/min/1.73m2 Severely decreased 15 - 29 mL/min/1.73m2 Kidney Failure < 15 mL/min/1.73m2 *Relative to young adult level Estimated glomerular filtration rate is determined by the 2020 CKD-EPI equation recommended by the National Kidney Foundation (A Unifying Approach to GFR Estimation: Recommendations of the NKF-ASK Task Force on Reassessing the Inclusion of Race in Diagnosing Kidney Disease, JASN 2020). The CKD-EPI equation should not be used for patients with unstable renal function and has not been validated in children and those over 70. Current interpretive data was last reviewed 2021. Testing performed by: [facility], [address] [place] [address]., [address] Blood 12/13/2024 9:50 AM COMPUTER SYSTEM SPECIALIST 12/13/2024 10:49 AM COMPUTER SYSTEM SPECIALIST us Tana Mccallum [employer]KEHOU[employer]PER[employer] LAB BLOOD ORDERABLES Final R esult [facility] [address] [facility] Department [place] [address] * (ABNORMAL) Differential, auto (12/13/2024 9:50 AM COMPUTER SYSTEM SPECIALIST) Neutrophil abs 9.1(H) 1.5 - 6.5 K/cumm Comment:Testing performed by : [address] [address] Imm gran abs 0.1 0.0 - 0.1 K/cumm NEO Comment:Testing performed by : [address] [address] Lymphocyte abs 3.0 0.8 - 3.3 K/cumm NEO Comment:Testing performed by : [address] [address] Monocyte abs 0.8 0.2 - 0.8 K/cumm NEO Comment:Testing performed by : [address] [address] Eosinophil abs 0.2 0.0 - 0.5 K/cumm NEO Comment:Testing performed by : [address] [address] Basophil abs 0.0 0.0 - 0.1 K/cumm [facility] Comment:Testing performed by : [address] [address] Neutrophil pct 69.4 % NEO Comment: Interpretive Data Percent cell count reference ranges are not reported, since discordance with absolute values may lead to misinterpretation of CBC data. Current Interpretive Data was last revised on 2018. Testing performed by: [address] [address] Imm gran pct 0.6 % NEO Comment: Interpretive Data Percent cell count reference ranges are not reported, since discordance with absolute values may lead to misinterpretation of CBC data. Current Interpretive Data was last revised on 2018. Testing performed by: [address] [address] Lymphocyte pct 22.6 % [facility] Comment: Interpretive Data Percent cell count reference ranges are not reported, since discordance with absolute values may lead to misinterpretation of CBC data. Current Interpretive Data was last revised on 2018. Testing performed by: [address] [address] Monocyte pct 6.0 % [facility] Comment: Interpretive Data Percent cell count reference ranges are not reported, since discordance with absolute values may lead to misinterpretation of CBC data. Current Interpretive Data was last revised on 2018. Testing performed by: [address] [address] Eosinophil pct 1.1 % [facility] Comment: Interpretive Data Percent cell count reference ranges are not reported, since discordance with absolute values may lead to misinterpretation of CBC data. Current Interpretive Data was last revised on 2018. Testing performed by: [address] [address] Basophil pct 0.3 % [facility] Comment: Interpretive Data Percent cell count reference ranges are not reported, since discordance with absolute values may lead to misinterpretation of CBC data. Current Interpretive Data was last revised on 2018. Testing performed by: [address] [address] Blood 12/13/2024 9:50 AM COMPUTER SYSTEM SPECIALIST 12/13/2024 10:48 AM COMPUTER SYSTEM SPECIALIST us Tana Mccallum NP LAB BLOOD ORDERABLES Final R esult NEO MAHARAJ [address] [facility] Department of Laboratories [place], [place] [id number] * (ABNORMAL) CBC with auto differential (12/13/2024 9:50 AM COMPUTER SYSTEM SPECIALIST) WBC 13.2(H) 3.8 - 9.9 K/cumm Comment:Testing performed by : [address] [address] Hgb 15.6 13.0 - 17.5 g/dL NEO Comment:Testing performed by : [address] [address] Hct 44.3 38.9 - 50.3 % NEO Comment:Testing performed by : [address] [address] Plt 278 150 - 400 K/cumm NEO Comment:Testing performed by : [address] [address] MPV 11.1 9.1 - 12.3 fL NEO Comment:Testing performed by : [address], [address] RBC 4.94 4.30 - 5.80 M/cumm NEO Comment:Testing performed by : [address] [address] MCV 89.7 81.3 - 96.4 fL NEO Comment:Testing performed by : [address], [address] MCH 31.6 27.1 - 33.3 pg NEO Comment:Testing performed by : [address], [address] MCHC 35.2 32.3 - 35.7 g/dL NEO Comment:Testing performed by : [address], [address] RDW CV 12.2 11.1 - 14.9 % NEO Comment:Testing performed by : [address], [address] RDW SD 39.9 35.7 - 48.1 fL NEO Comment:Testing performed by : [address] [address] NRBC abs 0.00 0.00 - 0.01 K/cumm NEO Comment:Testing performed by : [address] [address] Blood 12/13/2024 9:50 AM COMPUTER SYSTEM SPECIALIST 12/13/2024 10:48 AM COMPUTER SYSTEM SPECIALIST Tana Mccallum NP LAB BLOOD ORDERABLES Final R esult Performing Organization Address [facility] Co de Phone Number NEO [address] [employer] [place] [address] * Hepatitis C antibody Blood (12/13/2024 9:50 AM COMPUTER SYSTEM SPECIALIST) Hep C Ab Nonreactive Nonreactive Comment: Antibodies to HCV not detected. Does NOT exclude the possibility of recent exposure to HCV. Current interpretive data was last revised on 22 Interpretive Data Nonreactive: Antibodies to HCV not detected. Does NOT exclude the possibility of recent exposure to HCV. Equivocal: Equivocal for HCV antibodies. Supplemental molecular testing will be automatically performed to determine infection status in accordance with current CDC screening recommendations. Reactive: Positive for HCV antibodies. This may represent current or past HCV infection. Supplemental molecular testing will be automatically performed to determine current infection status in accordance with current CDC screening recommendations. Interpretive data was last revised on 2020. Blood 12/13/2024 9:50 AM COMPUTER SYSTEM SPECIALIST 12/13/2024 12:47 PM COMPUTER SYSTEM SPECIALIST Tana Mccallum NP LAB MICROBIOLOGY - GENERAL O RDERABLES Final Result Performing Organization Address [facility] Co de Phone Number [address] [address] * Hepatitis B Surface Antigen Blood (12/13/2024 9:50 AM COMPUTER SYSTEM SPECIALIST) HepBsAg Nonreactive Nonreactive Blood 12/13/2024 9:50 AM COMPUTER SYSTEM SPECIALIST 12/13/2024 12:47 PM COMPUTER SYSTEM SPECIALIST Tana Mccallum NP LAB MICROBIOLOGY - GENERAL O RDERABLES Final Result Performing Organization Address [facility] Co de Phone Number ALAINA[address] [place] [address] * Lipid panel (12/13/2024 9:50 AM COMPUTER SYSTEM SPECIALIST) Cholesterol 163 30 - 199 mg/dL Comment: Interpretive Data Ages < or = 19 years Acceptable: <170 mg/dL Borderline high: 170-199 mg/dL High: >or= 200 mg/dL Ages > or = 20 years Desirable: <200 mg/dL Borderline high: 200-239 mg/dL High: >or= 240 mg/dL Literature References: 1. Expert Panel on Integrated Guidelines for Cardiovascular Health and Risk Reduction in Children and Adolescents. Pediatrics 2011;128:S213 2. NCEP Expert Panel. Circulation 2004;110:227 Current Interpretive Data was last revised on 2018. Testing performed by: [address] [address] Triglycerides 90 <=149 mg/dL [facility] Comment: Interpretive Data Ages < or = 9 years Acceptable: <75 mg/dL Borderline high: 75-99 mg/dL High: >or= 100 mg/dL Ages 10 to 20 years Acceptable: <90 mg/dL Borderline high: 90-129 mg/dL High: >or= 130 mg/dL Ages > or = 20 years Desirable: <150 mg/dL Borderline high: 150-199 mg/dL High: 200-499 mg/dL Very high: >or= 499 mg/dL Literature References: 1. Expert Panel on Integrated Guidelines for Cardiovascular Health and Risk Reduction in Children and Adolescents. Pediatrics 2011;128:S213 2. NCEP Expert Panel. Circulation 2004;110:227 Current Interpretive Data was last revised on 2018. Testing performed by: [address] [address] HDL 40 >=40 mg/dL [facility] Comment: Interpretive Data Ages < or = 19 years Acceptable: >45 mg/dL Borderline low: 40-45 mg/dL Low: <40 mg/dL Ages > or = 20 years Desirable: >or= 60 mg/dL Low: <40 mg/dL Literature References: 1. Expert Panel on Integrated Guidelines for Cardiovascular Health and Risk Reduction in Children and Adolescents. Pediatrics 2011;128:S213 2. NCEP Expert Panel. Circulation 2004;110:227 Current Interpretive Data was last revised on 2018. Testing performed by: [address] [address] LDL, calculated 106 <=129 mg/dL NEO MAHARAJ Comment: Interpretive Data Ages < or = 19 years Acceptable: <110 mg/dL Borderline high: 110-129 mg/dL High: >or= 130 mg/dL Ages > or = 20 years Optimal: <100 mg/dL Near optimal: 100-129 mg/dL Borderline high: 130-159 mg/dL High: >160 mg/dL Calculated using the Guillermo LDL-C estimating equation. This equation was implemented on 2024. Prior to this date LDL-C was estimated using the Friedewald equation. Literature References: 1. Expert Panel on Integrated Guidelines for Cardiovascular Health and Risk Reduction in Children and Adolescents. Pediatrics 2011;128:S213 2. NCEP Expert Panel. Circulation 2004;110:227 3. Guillermo Taylor et al. FLAVIO Cardiol. 2020 March 16;5(5):540-548. doi: 10.1001/jamacardio.2020.0013 Current Interpretive Data was last revised on 2024. Testing performed by: [address] [address] Non-HDL Cholesterol 123 mg/dL NEO MAHARAJ Comment: Interpretive Data Ages < or = 19 years Acceptable: <120 mg/dL Borderline high: 120-144 mg/dL High: >145 mg/dL Ages > or = 20 years When triglycerides are >200 mg/dL, Non-HDL cholesterol is a secondary target of therapy with treatment goals that are 30 mg/dL greater than the LDL cholesterol target. Literature References: 1. Expert Panel on Integrated Guidelines for Cardiovascular Health and Risk Reduction in Children and Adolescents. Pediatrics 2011;128:S213 2. NCEP Expert Panel. Circulation 2004;110:227 Current Interpretive Data was last revised on 2018. Testing performed by: [address] [address] Chol/HDL ratio 4 NEO MAHARAJ Comment:Testing performed by : [address] [address] Blood 12/13/2024 9:50 AM COMPUTER SYSTEM SPECIALIST 12/13/2024 10:49 AM COMPUTER SYSTEM SPECIALIST us Tana Mccallum NP LAB BLOOD ORDERABLES Final R esult NEO [address] [facility] Department [place] [address] * (ABNORMAL) Comprehensive metabolic panel (12/13/2024 9:50 AM COMPUTER SYSTEM SPECIALIST) Sodium 141 135 - 145 mmol/L Comment:Testing performed by : [address] [address] Potassium, pl 4.3 3.3 - 4.9 mmol/L NEO Comment:Testing performed by : [address] [address] Chloride 106 97 - 110 mmol/L NEO Comment:Testing performed by : [address] [address] CO2 24 22 - 32 mmol/L NEO Comment:Testing performed by : [address] [address] Anion gap 11 2 - 15 mmol/L NEO Comment:Testing performed by : [address] [address] BUN 15 6 - 25 mg/dL NEO Comment:Testing performed by : [address] [address] Creatinine 0.65(L) 0.80 - 1.30 mg/dL NEO Comment:Testing performed by : [address] [address] Glucose 104 70 - 199 mg/dL NEO Comment: Interpretive Data Fasting glucose >/= 126 mg/dl is diagnostic for diabetes. Fasting is defined as no caloric intake for at least 8 hours. Fasting glucose between 100 mg/dl to 125 mg/dl is diagnostic of prediabetes. In a patient with classic symptoms of hyperglycemia or hyperglycemic crisis, a random glucose >/= 200 mg/dl is diagnostic for diabetes. In the absence of unequivocal hyperglycemia, results should be confirmed by repeat testing. The classification and Diagnosis of Diabetes Diabetes Care 2021; 46: S19-S40. Current interpretive data was last revised 2022. Testing performed by: [address] [address] Calcium 9.4 8.5 - 10.3 mg/dL NEO Comment:Testing performed by : [address] [address] Bilirubin, total 0.4 0.1 - 1.2 mg/dL NEO Comment:Testing performed by : [address] [address] Protein, pl 7.5 6.5 - 8.5 g/dL NEO Comment:Testing performed by : [address] [address] Albumin 4.1 3.5 - 5.0 g/dL NEO Comment:Testing performed by : [address] [address] Alk phos 99 40 - 130 Units/L NEO Comment:Testing performed by : [address] [address] ALT 24 7 - 55 Units/L NEO Comment:Testing performed by : [address] [address] AST 24 10 - 50 Units/L NEO Comment:Testing performed by : [address] [address] Blood 12/13/2024 9:50 AM COMPUTER SYSTEM SPECIALIST 12/13/2024 10:49 AM COMPUTER SYSTEM SPECIALIST Tana Mccallum NP LAB BLOOD ORDERABLES Final R esult NEO [address] [facility] Department of Laboratories [place], [place] [id number] * PSA screen (12/09/2023 8:57 AM COMPUTER SYSTEM SPECIALIST) PSA-Total 1.88 <=3.90 ng/mL NEO Comment: Interpretive Data AGE SEX REFERENCE INTERVAL 0 minutes-150 years Female None 0 minutes-49 years Male None 50-59 years Male 0-3.90 60-69 years Male 0-5.40 70-79 years Male 0-6.20 80-150 years Male 0-6.20 The Monica PSA Total assay procedure was used. Results from different manufacturers or methods may not be comparable. Serial testing should be performed using the same method. Current interpretive data last revised 22. Testing performed by: [facility], [address] [place] [address]., [address] Blood 12/09/2023 8:57 AM COMPUTER SYSTEM SPECIALIST 12/09/2023 12:00 PM COMPUTER SYSTEM SPECIALIST us Makayla Carrillo Jr., MD LAB BLOOD ORDERABLES Final Result ALAINANER [address] [facility] Department [place] [address] * HM COLONOSCOPY (05/21/2021) us Historical Provider HEALTH MAINTENANCE Final Result from Last 3 Months or Most Recently Relevant to Health Maintenance Insurance [facility] Advance Directives For more information, please contact: [phone] * Full Code (Latest Code Status on File) Date Activated Date Inactivated Comments 12/31/2024 10:55 PM 01/04/2025 5:13 PM Care Teams Director Of Sales And Marketing Relationship Specialty Start Date End Date Makayla Carrillo Jr., MD [address] [place] [id number] PCP - General Internal Medicine 04/05/20"
--- OUTSIDE RECORDS SUMMARY | 2025-03-08 17:44 | XMS_ITS | Clinical Summary ---
Author Organization [facility] Address [address] [place] [address] Care Team Providers Care Down Filler Name Role Phone None, Provider MD Primary Care Provider Unavaila ble Allergies No known active allergies Medications hydrocodone-acet aminophen 5-325 MG tablet Take 1 tablet by mouth every 6 (six) hours as needed. 14 tablet 01/23/2019 Active Social History Tobacco Use Types Packs/Day Years Used Date Smoking Tobacco: Never Smokeless Tobacco: Never Alcohol Use Standard Drinks/Week Comments Yes 0 (1 standard drink = 0.6 oz pur e alcohol) rarely Sex and Gender Information Value Date Recorded Sex Assigned at Not on file Legal Sex Male 7:51 PM CDT Gender Identity Not on file Sexual Orientation Not on file Last Filed Vital Signs Vital Sign Reading Time Taken Comments Blood Pressure 144/90 01/23/2019 5:27 PM CDT Pulse 82 01/23/2019 5:27 PM CDT Temperature 36.6 C (97.8 F) 01/23/2019 3:43 PM CDT Respiratory Rate 18 01/23/2019 5:27 PM CDT Oxygen Saturation 98% 01/23/2019 5:27 PM CDT Inhaled Oxygen Concentration - - Weight 117.9 kg (260 lb) 01/23/2019 3:43 PM CDT Height 165.1 cm (5' 5 ) 01/23/2019 3:43 PM CDT Body Mass Index 43.27 01/23/2019 3:43 PM CDT Plan of Treatment Health Maintenance Due Date Last Done Comments Colorectal Cancer Screening Colonoscopy (10 Years) 1972 Annual Physical 1975 Hepatitis C 1990 DTaP, Tdap and Td Vaccines ( 1 - Tdap) 1991 Hepatitis B Vaccines (1 of 3 - 19+ 3-dose series) 1991 Pneumococcal Vaccine: 50+ Ye ars (1 of 1 - PCV) 2022 Zoster Vaccines (1 of 2) 2022 COVID-19 Vaccine ( - 2023-2 5 season) 2024 Meningococcal B Vaccine Aged Out No l onger eligible based on patient's age to complete this topic Meningococcal Vaccine Aged Out No keren to eligible based on patient's age to complete this topic RSV Immunizations Under 20 Months Aged Out No longer eligible based on patient's age to complete this topic Insurance Care Teams Down Filler Relationship Specialty Start Date End Date None, Provider, PCP - General 01/23/19
--- OUTSIDE RECORDS SUMMARY | 2025-03-08 17:44 | XMS_ITS | Encounter Summary ---
Author Organization [facility] Healthcare Address [address] [place] [address] Care Team Providers Care Milk House Worker Name Role Phone Gerardo Wolff MD, Avelino Crawley Primary Care Provide r Encounter Details Date Type Department Care Team ([facility] st Contact Info) Description 02/13/2025 Telephone [facility] Medical Group Primary Care [address] [phone] Avelino Carrillo Jr., MD [address] [address] Social History Tobacco Use Types Packs/Day Years Used Date Smoking Tobacco: Never Smokeless Tobacco: Never Alcohol Use Standard Drinks/Week Comments Not Currently 0 (1 standard drink = 0.6 oz pur e alcohol) [facility] Utilities Answer Date Recorded In the past 12 months has [employer] electric, gas, oil, or water company threatened to shut off services in your [...] week 01/03/2025 How often do you attend chur ch or uatsdin services? More than 4 times per year 01/03/2025 Do you belong to any clubs o r organizations such as yazdanism groups, unions, fraternal or athletic groups, or [...] any time in the past 12 m [facility], were you homeless or living in a snf (including now)? No 01/03/2025 Personal Safety Answer Date Recorded Have you ever been in or are you currently in a harmful physical or emotional relationship or is someone making you feel afraid or unsafe? Denies 01/01/2025 Sex and Gender Information Value Date Recorded Sex Assigned at Not on file Legal Sex Male 12:16 AM MANAGER OF PURCHASING Gender Identity Not on file Sexual Orientation Not on file documented as of this encounter Functional Status * Audit-C Score Answer Date of Assessment Author 0 02/13/2025 7:31 AM Zully Messina MA * Question Answer Date of Assessment Author Q1: How often do you have a drink containing alcohol? Never 02/13/2025 7:31 AM Zully Caruso MA Q2: How many drinks containing alcohol do you have on a typical day when you are drinking? Patient does not drink 02/13/2025 7:31 AM Zully Caruso MA Q3: How often do you have six or more drinks on one occasion? Never 02/13/2025 7:31 AM Zully Caruso MA documented as of this encounter Plan of Treatment Not on file documented as of this encounter Visit Diagnoses Not on filedocumented in this encounter Care Teams Milk House Worker Relationship Specialty Start Date End Date Avelino Carrillo Jr., MD [address] [place] [id number] PCP - General Internal Medicine 04/05/20 documented as of this encounter
--- OUTSIDE RECORDS SUMMARY | 2025-03-08 17:44 | XMS_ITS | Encounter Summary ---
Author Organization [facility] Healthcare Address [address] [place] [address] Care Team Providers Care Network Systems Consultant Name Role Phone Gerardo Wolff MD, Avelino Crawley Primary Care Provide r Reason for Visit * Reason Onset Date Comments Medical Question/Miscellaneous 02/13/2025 Encounter Details Date Type Department Care Team ([facility] st Contact Info) Description 02/13/2025 Telephone [facility] Medical Group Primary Care [address] [phone] Avelino Carrillo Jr., MD [address] [address] Medical Question/Miscellaneous Social History Tobacco Use Types Packs/Day Years Used Date Smoking Tobacco: Never Smokeless Tobacco: Never Alcohol Use Standard Drinks/Week Comments Not Currently 0 (1 standard drink = 0.6 oz pur e alcohol) [facility] Utilities Answer Date Recorded In the past 12 months has [employer], gas, oil, or water [employer] threatened to shut off services in your [...] often do you attend chur ch or episcopalian services? More than 4 times per year 01/03/2025 Do you belong to any clubs o r organizations such as restoration groups, unions, fraternal or athletic groups, or [...] any time in the past 12 m [facility], were you homeless or living in a jail (including now)? No 01/03/2025 Personal Safety Answer Date Recorded Have you ever been in or are you currently in a harmful physical or emotional relationship or is someone making you feel afraid or unsafe? Denies 01/01/2025 Sex and Gender Information Value Date Recorded Sex Assigned at Not on file Legal Sex Male 12:16 AM CLIMATE CHANGE RISK ASSESSOR Gender Identity Not on file Sexual Orientation Not on file documented as of this encounter Functional Status * Audit-C Score Answer Date of Assessment Author 0 02/13/2025 7:31 AM CDT Zully Ruiz MA * Question Answer Date of Assessment Author Q1: How often do you have a drink containing alcohol? Never 02/13/2025 7:31 AM CDT Zully Caro MA Q2: How many drinks containing alcohol do you have on a typical day when you are drinking? Patient does not drink 02/13/2025 7:31 AM [place] Zully Caro MA Q3: How often do you have six or more drinks on one occasion? Never 02/13/2025 7:31 AM CDT Zully Caro MA documented as of this encounter Miscellaneous Notes * Telephone Encounter - Jeanna Tuttle - 02/13/2025 4:35 PM CDT Medical Question/Miscellaneous Caller???s Concern: Had questions regarding the referral process. Questions answered. Does message need to be routed? No documented in this encounter Plan of Treatment Not on file documented as of this encounter Visit Diagnoses Not on filedocumented in this encounter Care Teams Network Systems Consultant Relationship Specialty Start Date End Date Avelino Carrillo Jr., MD [address] [place] [id number] PCP - General Internal Medicine 04/05/20 documented as of this encounter
--- OUTSIDE RECORDS SUMMARY | 2025-03-08 17:44 | XMS_ITS | Clinical Summary ---
Author Organization [facility] [address] [place] [id number] Care Team Providers Care Efficiency Miner Name Role Phone Gerardo Wolff MD, Makayla Crawley Primary Care Provide r Allergies No known active allergies Medications meloxicam (MOBIC) 15 mg tabletIndications: Primary osteoarthritis of both knees,Chronic pain of left knee Take 1 tablet (15 mg total) by mouth daily 30 tablet 3 5 Active semaglutide (Wegovy) 0.25 mg/0.5 mL auto-injectorIndic ations:Class 2 severe obesity due to excess calories with serious comorbidity and body mass index (BMI) of 38.0 to 38.9 in adult ([facility]) Inject 0.5 mL (0.25 mg total) under [...] (BMI) of 37.0 to 37.9 in adult ([facility]) Inject 0.5 mL (2.5 mg total) under [...] in 4 months. Benign essential microscopic hematuria Assessment & Plan (02/13/2025 8:02 AM CDT): Had severe prostatitis and continued hematuria Will refer to urology Acute prostatitis 01/03/2025 Assessment & Plan (02/13/2025 8:01 AM CDT): Resolved Sepsis without acute organ d ysfunction, due to unspecified organism 12/31/2024 Assessment & Plan (02/13/2025 7:59 AM CDT): resovled Assessment & Plan (01/06/2025 11:18 AM AT RISK SPECIALIST): Resolved Finish antibiotic course Primary osteoarthritis of both knees 03/25/2021 Assessment & Plan (01/06/2025 11:18 AM AT RISK SPECIALIST): Continue mobic Assessment & Plan (12/13/2024 10:01 AM AT RISK SPECIALIST): Managed by orthopedic surgeon Dr Michaels. FU as planned to continue Tx as needed. Assessment & Plan (12/09/2023 9:10 AM AT RISK SPECIALIST): Has seen on xray, suspect at [...] 04/12/2020 Assessment & Plan (12/13/2024 10:00 AM AT RISK SPECIALIST): Wear sunscreen with SPF over 50 [...] please contact the office. I strongly encourage [employer] sign ups. It can facilitate communication flow. Please contact the office for instructions on signing up. Consider getting Shingrix (shingles vaccine). This is a 2-shot series with each injection given 2-6 months apart. You can obtain the vaccine at most major pharmacies without a prescription Assessment & Plan (12/09/2023 9:10 AM AT RISK SPECIALIST): Reviewed labs, screenings and vaccines Assessment [...] 04/12/2020 Assessment & Plan (01/06/2025 11:18 AM AT RISK SPECIALIST): Trying to start wegovy, will wait till he is recovered from the sepsis to start Assessment & Plan (12/13/2024 10:01 AM AT RISK SPECIALIST): Work on attempts to lose weight [...] going back on previous more controlled diet Encounters Date Type Department Care Team Description 03/06/2025 2:30 PM CDT Office Visit [facility] [address] [place] [address] Parrish Garcia MD Snoring 02/14/2025 Orders Only [facility] [address] [place] [address] [address] [place] [address] Makayla Carrillo Jr., MD Snoring (Primary Dx) 02/14/2025 Telephone [facility] [address] [place] [address] [address] [place] [address] Makayla Carrillo Jr., MD Zepbound denied 02/13/2025 7:45 AM CDT Office Visit [address] [phone] Makayla Carrillo Jr., MD Acute prostatitis (Primary Dx); Class 2 severe obesity due to excess calories with serious comorbidity and body mass index (BMI) of 37.0 to 37.9 in adult (HCC); Sepsis without acute organ dysfunction, due to unspecified organism (HCC); Benign essential microscopic hematuria 02/13/[address] [phone] Makayla Carrillo Jr., MD Medical Question/Miscellaneous 02/13/[address] [phone] Maakyla Carrillo Jr., MD 01/27/[address] [phone] Makayla Carrillo Jr., MD Med Refill; Call Back 01/12/2025 Letter (Out) [address] [phone] 01/12/[address] [phone] Makayla Carrillo Jr., MD Leukocytosis, unspecified type (Primary Dx); Sepsis without acute organ dysfunction, due to unspecified organism (HCC) 01/06/2025 9:00 AM AT RISK SPECIALIST Office Visit [address] [phone] Makayla Carrillo Jr., MD Sepsis without acute organ dysfunction, due to unspecified organism (HCC) (Primary Dx); Benign prostatic hyperplasia with weak urinary stream; Leukocytosis, unspecified type; Primary osteoarthritis of both knees; Chronic pain of left knee; Class 2 severe obesity due to excess calories with serious comorbidity and body mass index (BMI) of 37.0 to 37.9 in adult (HCC) 01/05/2025 Telephone [facility] [address] [place] [phone] Makayla Carrillo Jr., MD Missed appt 01/04/2025 Telephone [facility] [address] [place] [phone] Makayla Carrillo Jr., MD SAUL Questions 12/31/2024 8:58 PM AT RISK SPECIALIST - 01/04/2025 1:00 PM AT RISK SPECIALIST Hospital Encounter [facility] [address] [place], [place] [phone] Gerard Burrows DO Ismail, MD Jose Roberto Flynn Omar Ali Mohammed, MD Winston, Sim Li MD Sepsis without acute organ dysfunction, due to unspecified organism (HCC) (Primary Dx); Acute prostatitis; Acute cystitis with hematuria Discharge Disposition: Discharge to home or self care 12/21/2024 2:15 PM AT RISK SPECIALIST Office Visit [facility] [address] [place] [phone] Makayla Michaels PA Primary osteoarthritis of both knees (Primary Dx) 12/13/2024 9:35 AM AT RISK SPECIALIST Lab [facility] Building [address] [place] [phone] Need for hepatitis B screening test; Need for hepatitis C screening test; Lipid disorder; Preventative health care 12/13/2024 9:00 AM AT RISK SPECIALIST Office Visit [facility] [address] [place] [phone] Tana Mccallum NP Preventative health care (Primary Dx); Lipid disorder; Need for hepatitis C screening test; Need for hepatitis B screening test; Class 2 severe obesity due to excess calories with serious comorbidity and body mass index (BMI) of 38.0 to 38.9 in adult (HCC); Primary osteoarthritis of both knees 12/13/2024 Telephone [facility] [address] [place] [phone] Makayla Carrillo Jr., MD Lab Results from Last 3 Months Immunizations Immunization Administration Dates Next Due Influenza, Quadrivalent, Spl it, Preservative Free, Intramuscular 10/18/2020 Influenza, Unspecified 02/13/2025(Deferr ed: Patient Refused),09/16/2024(Deferred: Patient Refused),08/31/2024(Deferred: Patient Refused),12/09/2023(Deferred: Patient Refused),09/16/2023(Deferred: Patient Refused),08/26/2023(Deferred: Patient Refused),09/16/2022(Deferred: Patient Refused),08/07/2022(Deferred: Patient Refused) Surgical History Surgery Date Site/Laterality Comments CYST REMOVAL 11/16/1999 - 11/15/2000 CYST REMOVED FROM BACK Medical History Medical History Date Comments Patient denies medical problems Family History Medical History Relation Name Comments No Known Problems Father Diabetes Mother Relation Name Status Comments Father Mother Alive Social History Tobacco Use Types Packs/Day Years Used Date Smoking Tobacco: Never Smokeless Tobacco: Never Tobacco Cessation:Counseling Given: Not Answered Alcohol Use Standard Drinks/Week Comments Not Currently 0 (1 standard drink = 0.6 oz pur e alcohol) [facility] Utilities Answer Date Recorded In the past 12 months has [place], gas, oil, or water [employer] threatened to shut off services in your [...] often do you attend chur ch or cheondoism services? More than 4 times per year 01/03/2025 Do you belong to any clubs o r organizations such as mormonism groups, unions, fraternal or athletic groups, or [...] time in the past 12 m [facility], were you homeless or living in a usp (including now)? No 01/03/2025 Personal Safety Answer Date Recorded Have you ever been in or are you currently in a harmful physical or emotional relationship or is someone making you feel afraid or unsafe? Denies 01/01/2025 Sex and Gender Information Value Date Recorded Sex Assigned at Not on file Legal Sex Male 12:16 AM AT RISK SPECIALIST Gender Identity Not on file Sexual Orientation Not on file Obstetrics History Last Filed Vital Signs Vital Sign Reading [...] 03/06/2025 2:00 PM CDT Plan of Treatment Health Maintenance Due Date Last Done Comments Hepatitis B Screening 1990 Influenza Vaccine (Season Ended) 2025 10/18/2020 Prostate Cancer Screening-PSA 12/09/2025 12/09/2023, 04/14/2020, 09/20/2015 DTaP/Tdap/Td Vaccine (1 - Tdap) 12/13/2025 Postponed from 1983 (Insurance / Financial) Regular Well Visit/Exam 18-64 12/13/2025 12/13/2024, 12/09/2023, 08/07/2022, Additional history exists Zoster Vaccine (1 of 2) 12/13/2025 Post poned from 2022 (Insurance / Financial) Depression Screening 02/13/2026 02/13/2025, 01/06/2025, 12/13/2024, Additional history exists Colon Cancer Screening-Colonoscopy 05/21/2031 05/21/2021 Hepatitis C Screening Completed 12/13/2024 Pneumococcal vaccine <65 Aged Out No longer eligible based on patient's age to complete this topic Procedures Procedure Name Priority Date/Time Associated Diagnosis Comments POCT URINALYSIS DIPSTICK Routine 02/13/2025 7:42 AM CDT Acute prostatitis EGFR Routine 01/04/2025 7:47 AM AT RISK SPECIALIST DIFFERENTIAL AUTO Routine 01/04/2025 7:4 7 AM AT RISK SPECIALIST CBC WITH AUTO DIFFERENTIAL Routine 01/04/2025 7:47 AM AT RISK SPECIALIST COMPREHENSIVE METABOLIC PANEL Routine 01/04/2025 7:47 AM AT RISK SPECIALIST PHOSPHORUS Routine 01/04/2025 7:47 AM AT RISK SPECIALIST EGFR Routine 01/03/2025 8:05 AM AT RISK SPECIALIST DIFFERENTIAL AUTO Routine 01/03/2025 8:0 5 AM AT RISK SPECIALIST CBC WITH AUTO DIFFERENTIAL Routine 01/03/2025 8:05 AM AT RISK SPECIALIST COMPREHENSIVE METABOLIC PANEL Routine 01/03/2025 8:05 AM AT RISK SPECIALIST MAGNESIUM Routine 01/03/2025 8:05 AM AT RISK SPECIALIST PHOSPHORUS Routine 01/03/2025 8:05 AM AT RISK SPECIALIST EGFR Routine 01/02/2025 9:58 AM AT RISK SPECIALIST DIFFERENTIAL AUTO Routine 01/02/2025 9:5 8 AM AT RISK SPECIALIST CBC WITH AUTO DIFFERENTIAL Routine 01/02/2025 9:58 AM AT RISK SPECIALIST COMPREHENSIVE METABOLIC PANEL Routine 01/02/2025 9:58 AM AT RISK SPECIALIST MAGNESIUM Routine 01/02/2025 9:58 AM AT RISK SPECIALIST N. GONORRHOEAE/C. TRACHOMATIS AMPLIFICATION STAT 01/01/2025 5:52 AM AT RISK SPECIALIST EGFR Routine 01/01/2025 2:10 AM AT RISK SPECIALIST DIFFERENTIAL AUTO Routine 01/01/2025 2:1 0 AM AT RISK SPECIALIST LACTATE Routine 01/01/2025 2:10 AM AT RISK SPECIALIST PHOSPHORUS Routine 01/01/2025 2:10 AM AT RISK SPECIALIST MAGNESIUM Routine 01/01/2025 2:10 AM AT RISK SPECIALIST CBC WITH AUTO DIFFERENTIAL Routine 01/01/2025 2:10 AM AT RISK SPECIALIST BASIC METABOLIC PANEL Routine 01/01/2025 2:10 AM AT RISK SPECIALIST TROPONIN T HIGH-SENSITIVITY 6-HOUR Timed 01/01/2025 2:[address] CHEST PE ABDOMEN PELVIS W CONTRAST ED 12/31/2024 8:20 PM AT RISK SPECIALIST TROPONIN T HIGH-SENSITIVITY 2-HOUR Timed 12/31/2024 8:11 PM AT RISK SPECIALIST MANUAL DIFFERENTIAL STAT 12/31/2024 7 :14 PM AT RISK SPECIALIST CBC WITH AUTO DIFFERENTIAL STAT 12/31/2024 7:14 PM AT RISK SPECIALIST BLOOD CULTURE STAT 12/31/2024 7:14 PM AT RISK SPECIALIST SEPSIS LACTATE WITH REFLEX STAT 12/31/2024 7:05 PM AT RISK SPECIALIST BLOOD CULTURE STAT 12/31/2024 7:05 PM AT RISK SPECIALIST XR CHEST 1 VIEW ED 12/31/2024 6:10 PM AT RISK SPECIALIST URINALYSIS, MICROSCOPIC ONLY STAT 12/31/2024 6:07 PM AT RISK SPECIALIST URINE CULTURE STAT 12/31/2024 6:07 PM AT RISK SPECIALIST URINALYSIS AND REFLEX TO MICROSCOPIC AND CULTURE STAT 12/31/2024 6:07 PM AT RISK SPECIALIST EGFR STAT 12/31/2024 5:58 PM AT RISK SPECIALIST MANUAL DIFFERENTIAL STAT 12/31/2024 5 :58 PM AT RISK SPECIALIST DIFFERENTIAL AUTO STAT 12/31/2024 5:5 8 PM AT RISK SPECIALIST LIPASE STAT 12/31/2024 5:58 PM AT RISK SPECIALIST TROPONIN T HIGH-SENSITIVITY SERIES (BASELINE, 2HR, 4HR, 6HR) STAT 12/31/2024 5:58 PM AT RISK SPECIALIST COMPREHENSIVE METABOLIC PANEL STAT 12/31/2024 5:58 PM AT RISK SPECIALIST CBC WITH AUTO DIFFERENTIAL STAT 12/31/2024 5:58 PM AT RISK SPECIALIST INFLUENZA A/B, RSV, AND COVID-19 PCR STAT 12/31/2024 5:58 PM AT RISK SPECIALIST ECG 12-LEAD STAT 12/31/2024 5:53 PM AT RISK SPECIALIST IN ARTHROCENTESIS ASPIR&/INJ MAJOR JT/BURSA W/O US Routine 12/21/2024 2:15 PM AT RISK SPECIALIST Primary osteoarthritis of both knees EGFR Routine 12/13/2024 9:50 AM AT RISK SPECIALIST Preventative health care DIFFERENTIAL AUTO Routine 12/13/2024 9:5 0 AM AT RISK SPECIALIST Preventative health care CBC WITH AUTO DIFFERENTIAL Routine 12/13/2024 9:50 AM AT RISK SPECIALIST Preventative health care COMPREHENSIVE METABOLIC PANEL Routine 12/13/2024 9:50 AM AT RISK SPECIALIST Preventative health care LIPID PANEL Routine 12/13/2024 9:50 AM AT RISK SPECIALIST Lipid disorder HEPATITIS C ANTIBODY Routine 12/13/2024 9:50 AM AT RISK SPECIALIST Need for hepatitis C screening test HEPATITIS B SURFACE ANTIGEN Routine 12/13/2024 9:50 AM AT RISK SPECIALIST Need for hepatitis B screening test PSA SCREEN Routine 12/09/2023 8:57 AM AT RISK SPECIALIST Preventative health care HM COLONOSCOPY Routine 05/21/2021 from Last 3 Months or Most Recently Relevant to Health Maintenance Results * (ABNORMAL) POCT urinalysis dipstick (02/13/2025 7:42 AM CDT) Color, Urine, POC Charu Clarity, ur, POC Clear Clear Glucose, ur, POC Negative Negative MG/DL Bilirubin, ur, POC Negative Negative, Small, Moderate, Large Ketones, ur, POC Negative Negative Specific [place], POC 1.025 1.003 - 1.030 Blood, ur, [...] Final Result * eGFR (01/04/2025 7:47 AM AT RISK SPECIALIST) eGFR >90 >=60 mL/min/1. 73 m2 [...] was last reviewed 2021. Testing performed by: [facility], [address] [place] [address]., [id number] Blood 01/04/2025 7:47 AM AT RISK SPECIALIST 01/04/2025 8:13 AM AT RISK SPECIALIST Francisco Javier Cid MD LAB BLOOD ORDERABL ES Final Result [facility] [address] [facility] Department [place] [address] * (ABNORMAL) Differential, auto (01/04/2025 7:47 AM AT RISK SPECIALIST) Neutrophil abs 11.7(H) 1.5 - 6.5 K/cumm Comment:Testing performed by : [address] [address] Imm gran abs 0.4(H) 0.0 - 0.1 K/cumm NEO Comment:Testing performed by : [address] [address] Lymphocyte abs 2.2 0.8 - 3.3 K/cumm NEO Comment:Testing performed by : [address] [address] Monocyte abs 1.0(H) 0.2 - 0.8 K/cumm NEO Comment:Testing performed by : [address] [address] Eosinophil abs 0.2 0.0 - 0.5 K/cumm NEO Comment:Testing performed by : [address] [address] Basophil abs 0.1 0.0 - 0.1 K/cumm NEO Comment:Testing performed by : [address] [address] Neutrophil pct 75.2 % NEO Comment: Interpretive Data Percent cell count reference ranges are not reported, since discordance with absolute values may lead to misinterpretation of CBC data. Current Interpretive Data was last revised on 2018. Testing performed by: [address] [address] Imm gran pct 2.6 % NEO Comment: Interpretive Data Percent cell count reference ranges are not reported, since discordance with absolute values may lead to misinterpretation of CBC data. Current Interpretive Data was last revised on 2018. Testing performed by: [address] [address] Lymphocyte pct 14.0 % [facility] Comment: Interpretive Data Percent cell count reference ranges are not reported, since discordance with absolute values may lead to misinterpretation of CBC data. Current Interpretive Data was last revised on 2018. Testing performed by: [address] [address] Monocyte pct 6.3 % [facility] Comment: Interpretive Data Percent cell count reference ranges are not reported, since discordance with absolute values may lead to misinterpretation of CBC data. Current Interpretive Data was last revised on 2018. Testing performed by: [address] [address] Eosinophil pct 1.2 % [facility] Comment: Interpretive Data Percent cell count reference ranges are not reported, since discordance with absolute values may lead to misinterpretation of CBC data. Current Interpretive Data was last revised on 2018. Testing performed by: [address] [address] Basophil pct 0.7 % [facility] Comment: Interpretive Data Percent cell count reference ranges are not reported, since discordance with absolute values may lead to misinterpretation of CBC data. Current Interpretive Data was last revised on 2018. Testing performed by: [address] [address] Blood 01/04/2025 7:47 AM AT RISK SPECIALIST 01/04/2025 8:15 AM AT RISK SPECIALIST us Francisco Javier Cid MD LAB BLOOD ORDERABL ES Final Result [facility] [address] [facility] Department [place] [address] * (ABNORMAL) CBC with auto differential (01/04/2025 7:47 AM AT RISK SPECIALIST) WBC 15.5(H) 3.8 - 9.9 K/cumm Comment:Testing performed by : [address], [address] Hgb 15.1 13.0 - 17.5 g/dL NEO Comment:Testing performed by : [address] [address] Hct 44.4 38.9 - 50.3 % NEO Comment:Testing performed by : [address] [address] Plt 293 150 - 400 K/cumm NEO Comment:Testing performed by : [address], [address] MPV 10.5 9.1 - 12.3 fL NEO Comment:Testing performed by : [address], [address] RBC 4.97 4.30 - 5.80 M/cumm NEO Comment:Testing performed by : [address], [address] MCV 89.3 81.3 - 96.4 fL NEO Comment:Testing performed by : [address], [address] MCH 30.4 27.1 - 33.3 pg NEO Comment:Testing performed by : [address], [address] MCHC 34.0 32.3 - 35.7 g/dL NEO Comment:Testing performed by : [address], [address] RDW CV 12.7 11.1 - 14.9 % NEO Comment:Testing performed by : [address], [address] RDW SD 41.6 35.7 - 48.1 fL NEO Comment:Testing performed by : [address], [address] NRBC abs 0.00 0.00 - 0.01 K/cumm NOE Comment:Testing performed by : [address], [address] Blood 01/04/2025 7:47 AM AT RISK SPECIALIST 01/04/2025 8:15 AM AT RISK SPECIALIST Francisco Javier Cid MD LAB BLOOD ORDERABL ES Final Result Performing Organization Address City/[facility] Co de Phone Number [address] [address] * Phosphorus (01/04/2025 7:47 AM AT RISK SPECIALIST) Pathologist [facility] Phosphorus, pl 3.5 2.3 - 4.5 mg/dL Comment:Testing performed by : [address] [address] Blood 01/04/2025 7:47 AM AT RISK SPECIALIST 01/04/2025 8:13 AM AT RISK SPECIALIST Francisco Javier Cid MD LAB BLOOD ORDERABL ES Final Result Performing Organization Address [facility] de Phone Number [address] [address] * (ABNORMAL) Comprehensive metabolic panel (01/04/2025 7:47 AM AT RISK SPECIALIST) Pathologist [facility] Sodium 140 135 - 145 mmol/L Comment:Testing performed by : [address] [address] Potassium, pl 3.9 3.3 - 4.9 mmol/L NEO Comment:Testing performed by : [address] [address] Chloride 104 97 - 110 mmol/L NEO Comment:Testing performed by : [address] [address] CO2 24 22 - 32 mmol/L NEO Comment:Testing performed by : [address] [address] Anion gap 12 2 - 15 mmol/L NEO Comment:Testing performed by : [address] [address] BUN 13 6 - 25 mg/dL NEO Comment:Testing performed by : [address] [address] Creatinine 0.60(L) 0.80 - 1.30 mg/dL NEO Comment:Testing performed by : [address] [address] Glucose 97 70 - 199 mg/dL NEO Comment: Interpretive [...] last revised 2022. Testing performed by: [address] [address] Calcium 9.5 8.5 - 10.3 mg/dL NEO Comment:Testing performed by : [address] [address] Bilirubin, total 0.2 0.1 - 1.2 mg/dL NEO Comment:Testing performed by : [address] [address] Protein, pl 7.5 6.5 - 8.5 g/dL NEO Comment:Testing performed by : [address] [address] Albumin 3.6 3.5 - 5.0 g/dL NEO Comment:Testing performed by : [address] [address] Alk phos 112 40 - 130 Units/L NEO Comment:Testing performed by : [address] [address] ALT 22 7 - 55 Units/L NEO Comment:Testing performed by : [address] [address] AST 24 10 - 50 Units/L NEO Comment:Testing performed by : [address] [address] Blood 01/04/2025 7:47 AM AT RISK SPECIALIST 01/04/2025 8:13 AM AT RISK SPECIALIST Francisco Javier Cid MD LAB BLOOD ORDERABL ES Final Result Performing Organization Address [facility] Co de Phone Number NEO [address] [place] [address] * eGFR (01/03/2025 8:05 AM AT RISK SPECIALIST) eGFR >90 >=60 mL/min/1. 73 m2 [...] was last reviewed 2021. Testing performed by: [facility], [address] [place] [address]., [address] Blood 01/03/2025 8:05 AM AT RISK SPECIALIST 01/03/2025 8:36 AM AT RISK SPECIALIST Francisco Javier Cid MD LAB BLOOD ORDERABL ES Final Result Performing Organization Address City/[facility]/ZIP Co de Phone Number NE[facility] Department [place] [address] * (ABNORMAL) Differential, auto (01/03/2025 8:05 AM AT RISK SPECIALIST) Neutrophil abs 20.7(H) 1.5 - 6.5 K/cumm Comment:Testing performed by : [address], [place]., [address] Imm gran abs 0.2(H) 0.0 - 0.1 K/cumm [facility] Comment:Testing performed by : [address], [place]., [address] Lymphocyte abs 1.8 0.8 - 3.3 K/cumm [facility] Comment:Testing performed by : [address], [place]., [address] Monocyte abs 1.0(H) 0.2 - 0.8 K/cumm [facility] Comment:Testing performed by : [address], [place]., [address] Eosinophil abs 0.1 0.0 - 0.5 K/cumm [facility] Comment:Testing performed by : [address] [address] Basophil abs 0.1 0.0 - 0.1 K/cumm [facility] Comment:Testing performed by : [address] [address] Neutrophil pct 86.7 % [facility] Comment: Interpretive Data Percent cell count reference ranges are not reported, since discordance with absolute values may lead to misinterpretation of CBC data. Current Interpretive Data was last revised on 2018. Testing performed by: [address] [address] Imm gran pct 1.0 % [facility] Comment: Interpretive Data Percent cell count reference ranges are not reported, since discordance with absolute values may lead to misinterpretation of CBC data. Current Interpretive Data was last revised on 2018. Testing performed by: [address] [address] Lymphocyte pct 7.4 % [facility] Comment: Interpretive Data Percent cell count reference ranges are not reported, since discordance with absolute values may lead to misinterpretation of CBC data. Current Interpretive Data was last revised on 2018. Testing performed by: [address] [address] Monocyte pct 4.1 % [facility] Comment: Interpretive Data Percent cell count reference ranges are not reported, since discordance with absolute values may lead to misinterpretation of CBC data. Current Interpretive Data was last revised on 2018. Testing performed by: [address] [address] Eosinophil pct 0.5 % [facility] Comment: Interpretive Data Percent cell count reference ranges are not reported, since discordance with absolute values may lead to misinterpretation of CBC data. Current Interpretive Data was last revised on 2018. Testing performed by: [address] [address] Basophil pct 0.3 % [facility] Comment: Interpretive Data Percent cell count reference ranges are not reported, since discordance with absolute values may lead to misinterpretation of CBC data. Current Interpretive Data was last revised on 2018. Testing performed by: [address] [address] Blood 01/03/2025 8:05 AM AT RISK SPECIALIST 01/03/2025 8:37 AM AT RISK SPECIALIST us Francisco Javier Cid MD LAB BLOOD ORDERABL ES Final Result [facility] [address] [facility] Department [place] [address] * (ABNORMAL) CBC with auto differential (01/03/2025 8:05 AM AT RISK SPECIALIST) WBC 23.9(H) 3.8 - 9.9 K/cumm Comment:Testing performed by : [address] [address] Hgb 14.6 13.0 - 17.5 g/dL NEO MAHARAJ Comment:Testing performed by : [address] [address] Hct 42.3 38.9 - 50.3 % NEO MAHARAJ Comment:Testing performed by : [address] [address] Plt 266 150 - 400 K/cumm NEO MAHARAJ Comment:Testing performed by : [address] [address] MPV 10.9 9.1 - 12.3 fL NEO Comment:Testing performed by : [address] [address] RBC 4.73 4.30 - 5.80 M/cumm NEO MAHARAJ Comment:Testing performed by : [address] [address] MCV 89.4 81.3 - 96.4 fL NEO Comment:Testing performed by : [address] [address] MCH 30.9 27.1 - 33.3 pg NEO Comment:Testing performed by : [address] [address] MCHC 34.5 32.3 - 35.7 g/dL NEO Comment:Testing performed by : [address] [address] RDW CV 12.6 11.1 - 14.9 % NEO Comment:Testing performed by : [address] [address] RDW SD 41.4 35.7 - 48.1 fL NEO Comment:Testing performed by : [address] [address] NRBC abs 0.00 0.00 - 0.01 K/cumm NEO Comment:Testing performed by : [address], [address] Blood 01/03/2025 8:05 AM AT RISK SPECIALIST 01/03/2025 8:37 AM AT RISK SPECIALIST us Francisco Javier Cid MD LAB BLOOD ORDERABL ES Final Result NEO [address] [facility] [place] [address] * (ABNORMAL) Phosphorus (01/03/2025 8:05 AM AT RISK SPECIALIST) Phosphorus, pl 2.2(L) 2.3 - 4.5 mg/dL Comment:Testing performed by : [address] [address] Blood 01/03/2025 8:05 AM AT RISK SPECIALIST 01/03/2025 8:36 AM AT RISK SPECIALIST Francisco Javier Cid MD LAB BLOOD ORDERABL ES Final Result Performing Organization Address City/[facility] Co de Phone Number [address] [place] [address] * Magnesium (01/03/2025 8:05 AM AT RISK SPECIALIST) Pathologist [facility] Magnesium 2.0 1.4 - 2.5 mg/dL Comment:Testing performed by : [address] [address] Blood 01/03/2025 8:05 AM AT RISK SPECIALIST 01/03/2025 8:36 AM AT RISK SPECIALIST Francisco Javier Cid MD LAB BLOOD ORDERABL ES Final Result Performing Organization Address [facility] Co de Phone Number [address] [place] [address] * (ABNORMAL) Comprehensive metabolic panel (01/03/2025 8:05 AM AT RISK SPECIALIST) Pathologist [facility] Sodium 140 135 - 145 mmol/L Comment:Testing performed by : [address] [address] Potassium, pl 3.6 3.3 - 4.9 mmol/L NEO Comment:Testing performed by : [address] [address] Chloride 105 97 - 110 mmol/L NEO Comment:Testing performed by : [address] [address] CO2 24 22 - 32 mmol/L NEO Comment:Testing performed by : [address] [address] Anion gap 11 2 - 15 mmol/L NEO Comment:Testing performed by : [address] [address] BUN 9 6 - 25 mg/dL NEO Comment:Testing performed by : [address] [address] Creatinine 0.60(L) 0.80 - 1.30 mg/dL NEO Comment:Testing performed by : [address] [address] Glucose 117 70 - 199 mg/dL NEO [...] last revised 2022. Testing performed by: [address] [address] Calcium 9.1 8.5 - 10.3 mg/dL NEO Comment:Testing performed by : [address] [address] Bilirubin, total 0.2 0.1 - 1.2 mg/dL NEO Comment:Testing performed by : [address] [address] Protein, pl 7.3 6.5 - 8.5 g/dL NEO Comment:Testing performed by : [address] [address] Albumin 3.5 3.5 - 5.0 g/dL NEO Comment:Testing performed by : [address] [address] Alk phos 144(H) 40 - 130 Units/L NEO Comment:Testing performed by : [address] [address] ALT 12 7 - 55 Units/L NEO Comment:Testing performed by : [address] [address] AST 14 10 - 50 Units/L NEO Comment:Testing performed by : [address] [address] Blood 01/03/2025 8:05 AM AT RISK SPECIALIST 01/03/2025 8:36 AM AT RISK SPECIALIST Francisco Javier Cid MD LAB BLOOD ORDERABL ES Final Result Performing Organization Address [facility] Co de Phone Number [facility] [address] [facility] [employer] [address] * eGFR (01/02/2025 9:58 AM AT RISK SPECIALIST) eGFR >90 >=60 mL/min/1. 73 m2 [...] was last reviewed 2021. Testing performed by: [facility], [address] [place] [address]., [address] Blood 01/02/2025 9:58 AM AT RISK SPECIALIST 01/02/2025 12:57 PM AT RISK SPECIALIST Francisco Javier Cid MD LAB BLOOD ORDERABL ES Final Result Performing Organization Address City/[facility]/ZIP Co de Phone Number [facility] [address] [facility] Department [place] [address] * (ABNORMAL) Differential, auto (01/02/2025 9:58 AM AT RISK SPECIALIST) Neutrophil abs 31.1(H) 1.5 - 6.5 K/cumm Comment:Testing performed by : [address] [address] Imm gran abs 0.7(H) 0.0 - 0.1 K/cumm NEO Comment:Testing performed by : [address] [address] Lymphocyte abs 1.8 0.8 - 3.3 K/cumm NEO Comment:Testing performed by : [address] [address] Monocyte abs 1.7(H) 0.2 - 0.8 K/cumm NEO Comment:Testing performed by : [address] [address] Eosinophil abs 0.1 0.0 - 0.5 K/cumm [facility] Comment:Testing performed by : [address] [address] Basophil abs 0.1 0.0 - 0.1 K/cumm [facility] Comment:Testing performed by : [address] [address] Neutrophil pct 87.8 % [facility] Comment: Interpretive Data Percent cell count reference ranges are not reported, since discordance with absolute values may lead to misinterpretation of CBC data. Current Interpretive Data was last revised on 2018. Testing performed by: [address] [address] Imm gran pct 2.0 % CERRITA Comment: Interpretive Data Percent cell count reference ranges are not reported, since discordance with absolute values may lead to misinterpretation of CBC data. Current Interpretive Data was last revised on 2018. Testing performed by: [address] [address] Lymphocyte pct 5.1 % [facility] Comment: Interpretive Data Percent cell count reference ranges are not reported, since discordance with absolute values may lead to misinterpretation of CBC data. Current Interpretive Data was last revised on 2018. Testing performed by: [address] [address] Monocyte pct 4.7 % NEO Comment: Interpretive Data Percent cell count reference ranges are not reported, since discordance with absolute values may lead to misinterpretation of CBC data. Current Interpretive Data was last revised on 2018. Testing performed by: [address] [address] Eosinophil pct 0.2 % NEO Comment: Interpretive Data Percent cell count reference ranges are not reported, since discordance with absolute values may lead to misinterpretation of CBC data. Current Interpretive Data was last revised on 2018. Testing performed by: [address] [address] Basophil pct 0.2 % NEO Comment: Interpretive Data Percent cell count reference ranges are not reported, since discordance with absolute values may lead to misinterpretation of CBC data. Current Interpretive Data was last revised on 2018. Testing performed by: [address] [address] Blood 01/02/2025 9:58 AM AT RISK SPECIALIST 01/02/2025 11:09 AM AT RISK SPECIALIST Francisco Javier Cid MD LAB BLOOD ORDERABL ES Final Result [facility] [address] [facility] Department [place] [address] * (ABNORMAL) CBC with auto differential (01/02/2025 9:58 AM AT RISK SPECIALIST) WBC 35.4(H) 3.8 - 9.9 K/cumm Comment:Testing performed by : [address] [address] Hgb 13.7 13.0 - 17.5 g/dL NEO Comment:Testing performed by : [address] [address] Hct 39.3 38.9 - 50.3 % NEO MAHARAJ Comment:Testing performed by : [address] [address] Plt 190 150 - 400 K/cumm NOE MAHARAJ Comment:Testing performed by : [address] [address] MPV 11.3 9.1 - 12.3 fL NEO MAHARAJ Comment:Testing performed by : [address] [address] RBC 4.36 4.30 - 5.80 M/cumm NEO MAHARAJ Comment:Testing performed by : [address] [address] MCV 90.1 81.3 - 96.4 fL NEO Comment:Testing performed by : [address] [address] MCH 31.4 27.1 - 33.3 pg NEO MAHARAJ Comment:Testing performed by : [address] [address] MCHC 34.9 32.3 - 35.7 g/dL NEO Comment:Testing performed by : [address] [address] RDW CV 12.6 11.1 - 14.9 % NEO Comment:Testing performed by : [address] [address] RDW SD 41.2 35.7 - 48.1 fL NEO Comment:Testing performed by : [address] [address] NRBC abs 0.00 0.00 - 0.01 K/cumm NEO Comment:Testing performed by : [address] [address] Blood 01/02/2025 9:58 AM AT RISK SPECIALIST 01/02/2025 11:09 AM AT RISK SPECIALIST us Francisco Javier Cid MD LAB BLOOD ORDERABL ES Final Result NEO [facility] Department [place] [address] * Magnesium (01/02/2025 9:58 AM AT RISK SPECIALIST) Pathologist [facility] Magnesium 2.1 1.4 - 2.5 mg/dL Comment:Testing performed by : [address] [address] Blood 01/02/2025 9:58 AM AT RISK SPECIALIST 01/02/2025 12:57 PM AT RISK SPECIALIST Francisco Javier Cid MD LAB BLOOD ORDERABL ES Final Result [facility] [address] [facility] Department [place] [address] * (ABNORMAL) Comprehensive metabolic panel (01/02/2025 9:58 AM AT RISK SPECIALIST) Pathologist [facility] Sodium 136 135 - 145 mmol/L Comment:Testing performed by : [address] [address] Potassium, pl 4.2 3.3 - 4.9 mmol/L NEO Comment: Hemolyzed; Potassium value may be falsely elevated by as much as 1.0 mmol/L. Suggest redraw and reanalysis. Testing performed by: [address] [address] Chloride 105 97 - 110 mmol/L NEO Comment:Testing performed by : [address] [address] CO2 18(L) 22 - 32 mmol/L NEO Comment:Testing performed by : [address] [address] Anion gap 13 2 - 15 mmol/L NEO Comment:Testing performed by : [address] [address] BUN 10 6 - 25 mg/dL NEO Comment:Testing performed by : [address] [address] Creatinine 0.60(L) 0.80 - 1.30 mg/dL NEO Comment:Testing performed by : [address] [address] Glucose 112 70 - 199 mg/dL NEO Comment: Interpretive [...] last revised 2022. Testing performed by: [address] [address] Calcium 8.9 8.5 - 10.3 mg/dL NEO Comment:Testing performed by : [address] [address] Bilirubin, total 0.4 0.1 - 1.2 mg/dL NEO Comment:Testing performed by : [address] [address] Protein, pl 6.6 6.5 - 8.5 g/dL NEO Comment:Testing performed by : [address] [address] Albumin 3.0(L) 3.5 - 5.0 g/dL NEO Comment:Testing performed by : [address] [address] Alk phos 146(H) 40 - 130 Units/L NEO Comment:Testing performed by : [address] [address] ALT 13 7 - 55 Units/L NEO Comment:Testing performed by : [address] [address] AST 25 10 - 50 Units/L NEO Comment: Hemolyzed; result may be falsely elevated Testing performed by: [address] [address] Blood 01/02/2025 9:58 AM AT RISK SPECIALIST 01/02/2025 12:57 PM AT RISK SPECIALIST Francisco Javier Cid MD LAB BLOOD ORDERABL ES Final Result Performing Organization Address [facility] Co de Phone Number [address] [address] * N. gonorrhoeae/C. trachomatis Amplification Urine (01/01/2025 5:52 AM AT RISK SPECIALIST) C. trachomatis Not Detected Not Detected Comment:Testing performed by : [address] [address] N. gonorrhoeae Not Detected Not Detected NEO Comment: Interpretive Data This assay detects Chlamydia trachomatis and Neisseria gonorrhoeae by nucleic acid amplification testing (NAAT). This assay has been cleared by the [place] Food and Drug administration. The performance characteristics of this test have been verified by the [facility]. The performance characteristics of this test have not been evaluated in individuals less than 14 years of age. Current Interpretive Data last revised 2023. Testing performed by: [address] [address] Urine (None) 01/01/2025 5:52 AM AT RISK SPECIALIST 01/01/2025 6:06 AM AT RISK SPECIALIST Tonny Pratt MD LAB MICROBIOLOGY - GENER AL ORDERABLES Final Result Performing Organization Address [facility] Co de Phone Number [address] [place] [address] * Troponin T high-sensitivity 6-hour (01/01/2025 2:10 AM AT RISK SPECIALIST) Trop T hs 13 <=22 ng/L Comment: Interpretive Data For further hscTnT resources including the diagnostic algorithm and an aid in interpretation, copy and paste this link: https://nrl.testcatalog.org/show/hsTrop Current Interpretive Data last revised 2020. Testing performed by: [address] [address] Trop T hs delta See Comment ng/L NEO Comment: Inappropriate collection time to report a delta. Testing performed by: [address] [address] Trop T hs pct delta See Comment % NEO Comment: Inappropriate collection time to report a delta. Testing performed by: [facility], [address] [place] [address]., [address] Trop T hs interp See Comment NEO Comment: Inappropriate collection time to report a delta. Testing performed by: [address] [address] Blood 01/01/2025 2:10 AM AT RISK SPECIALIST 01/01/2025 2:16 AM AT RISK SPECIALIST Mariana HOUSTON LAB BLOOD ORDERABLES Final Resu lt Performing Organization Address [facility] Co de Phone Number ALAINA[address] [place] [address] * Lactate (01/01/2025 2:10 AM AT RISK SPECIALIST) Pathologist [facility] Lactate 0.9 0.7 - 2.0 mmol/L Comment:Testing performed by : [address] [address] Blood 01/01/2025 2:10 AM AT RISK SPECIALIST 01/01/2025 2:16 AM AT RISK SPECIALIST Tonny Pratt MD LAB BLOOD ORDERABLES Fin al Result Performing Organization Address [facility] Co de Phone Number [address] [place] [address] * eGFR (01/01/2025 2:10 AM AT RISK SPECIALIST) eGFR >90 >=60 mL/min/1. 73 m2 [...] last reviewed 2021. Testing performed by: [address] [address] Blood 01/01/2025 2:10 AM AT RISK SPECIALIST 01/01/2025 2:16 AM AT RISK SPECIALIST us Tonny Pratt MD LAB BLOOD ORDERABLES Fin al Result NEO [address] [facility] Department [place] [address] * (ABNORMAL) Differential, auto (01/01/2025 2:10 AM AT RISK SPECIALIST) Neutrophil abs 36.8(H) 1.5 - 6.5 K/cumm Comment:Testing performed by : [address] [address] Imm gran abs 0.6(H) 0.0 - 0.1 K/cumm NEO Comment:Testing performed by : [address] [address] Lymphocyte abs 1.4 0.8 - 3.3 K/cumm NEO Comment:Testing performed by : [address] [address] Monocyte abs 1.5(H) 0.2 - 0.8 K/cumm NEO Comment:Testing performed by : [address] [address] Eosinophil abs 0.0 0.0 - 0.5 K/cumm NEO Comment:Testing performed by : [address] [address] Basophil abs 0.1 0.0 - 0.1 K/cumm NEO Comment:Testing performed by : [address] [address] Neutrophil pct 91.0 % [facility] Comment: Interpretive Data Percent cell count reference ranges are not reported, since discordance with absolute values may lead to misinterpretation of CBC data. Current Interpretive Data was last revised on 2018. Testing performed by: [address] [address] Imm gran pct 1.5 % [facility] Comment: Interpretive Data Percent cell count reference ranges are not reported, since discordance with absolute values may lead to misinterpretation of CBC data. Current Interpretive Data was last revised on 2018. Testing performed by: [address] [address] Lymphocyte pct 3.5 % [facility] Comment: Interpretive Data Percent cell count reference ranges are not reported, since discordance with absolute values may lead to misinterpretation of CBC data. Current Interpretive Data was last revised on 2018. Testing performed by: [address] [address] Monocyte pct 3.8 % [facility] Comment: Interpretive Data Percent cell count reference ranges are not reported, since discordance with absolute values may lead to misinterpretation of CBC data. Current Interpretive Data was last revised on 2018. Testing performed by: [address] [address] Eosinophil pct 0.0 % [facility] Comment: Interpretive Data Percent cell count reference ranges are not reported, since discordance with absolute values may lead to misinterpretation of CBC data. Current Interpretive Data was last revised on 2018. Testing performed by: [address] [address] Basophil pct 0.2 % [facility] Comment: Interpretive Data Percent cell count reference ranges are not reported, since discordance with absolute values may lead to misinterpretation of CBC data. Current Interpretive Data was last revised on 2018. Testing performed by: [address] [address] Blood 01/01/2025 2:10 AM AT RISK SPECIALIST 01/01/2025 2:16 AM AT RISK SPECIALIST Tonny Pratt MD LAB BLOOD ORDERABLES Fin al Result NEO [address] [facility] Department [place] [address] * (ABNORMAL) CBC with auto differential (01/01/2025 2:10 AM AT RISK SPECIALIST) WBC 40.4(H) 3.8 - 9.9 K/cumm Comment:Testing performed by : [address] [address] Hgb 14.0 13.0 - 17.5 g/dL NEO Comment:Testing performed by : [address] [address] Hct 40.1 38.9 - 50.3 % NEO Comment:Testing performed by : [address] [address]13 Plt 204 150 - 400 K/cumm NEO Comment:Testing performed by : [address] [address] MPV 10.6 9.1 - 12.3 fL NEO Comment:Testing performed by : [address] [address] RBC 4.49 4.30 - 5.80 M/cumm NEO Comment:Testing performed by : [address] [address] MCV 89.3 81.3 - 96.4 fL NEO Comment:Testing performed by : [address] [address] MCH 31.2 27.1 - 33.3 pg NEO MAHARAJ Comment:Testing performed by : [address] [address] MCHC 34.9 32.3 - 35.7 g/dL NEO Comment:Testing performed by : [address], [address] RDW CV 12.7 11.1 - 14.9 % NEO MAHARAJ Comment:Testing performed by : [address] [address] RDW SD 41.1 35.7 - 48.1 fL NEO MAHARAJ Comment:Testing performed by : [address] [address] NRBC abs 0.00 0.00 - 0.01 K/cumm NEO Comment:Testing performed by : [address], [address] Blood 01/01/2025 2:10 AM AT RISK SPECIALIST 01/01/2025 2:16 AM AT RISK SPECIALIST Tonny Pratt MD LAB BLOOD ORDERABLES Fin al Result Performing Organization Address [facility] de Phone Number [address] [place] [address] * Phosphorus (01/01/2025 2:10 AM AT RISK SPECIALIST) Phosphorus, pl 2.7 2.3 - 4.5 mg/dL Comment:Testing performed by : [address], [address] Blood 01/01/2025 2:10 AM AT RISK SPECIALIST 01/01/2025 2:16 AM AT RISK SPECIALIST Tonny Pratt MD LAB BLOOD ORDERABLES Fin al Result Performing Organization Address [facility] de Phone Number [address] [address] * Magnesium (01/01/2025 2:10 AM AT RISK SPECIALIST) Magnesium 1.8 1.4 - 2.5 mg/dL Comment:Testing performed by : [address] [address] Blood 01/01/2025 2:10 AM AT RISK SPECIALIST 01/01/2025 2:16 AM AT RISK SPECIALIST Tonny Pratt MD LAB BLOOD ORDERABLES Fin al Result NEO [address] [facility] Department [place] [address] * (ABNORMAL) Basic metabolic panel (01/01/2025 2:10 AM AT RISK SPECIALIST) Sodium 138 135 - 145 mmol/L Comment:Testing performed by : [address] [address] Potassium, pl 3.5 3.3 - 4.9 mmol/L NEO Comment:Testing performed by : [address] [address] Chloride 106 97 - 110 mmol/L NEO Comment:Testing performed by : [address] [address] CO2 22 22 - 32 mmol/L NEO Comment:Testing performed by : [address] [address] Anion gap 10 2 - 15 mmol/L NEO Comment:Testing performed by : [address] [address] BUN 12 6 - 25 mg/dL NEO Comment:Testing performed by : [address] [address] Creatinine 0.75(L) 0.80 - 1.30 mg/dL NEO Comment:Testing performed by : [address] [address] Glucose 132 70 - 199 mg/dL NEO [...] was last revised 2022. Testing performed by: [facility], [address] [place] [address]., [address] Calcium 8.3(L) 8.5 - 10.3 mg/dL NEO MAHARAJ Comment:Testing performed by : [facility], [address] [place] [address]., [address] Blood 01/01/2025 2:10 AM AT RISK SPECIALIST 01/01/2025 2:16 AM AT RISK SPECIALIST Tonny Pratt MD LAB BLOOD ORDERABLES Fin al Result NEO MAHARAJ [address] [facility] Department [place] [address] * CT Chest PE (CTA) Abdomen Pelvis W Contrast (12/31/2024 8:20 PM AT RISK SPECIALIST) Anatomical Region Laterality Modality Body N/A Computed Tomogra phy 12/31/2024 8:58 PM AT RISK SPECIALIST Narrative 12/31/2024 9:08 PM AT RISK SPECIALIST EXAM DESCRIPTION: CT CHEST PE (CTA) [...] Carlo Helm M.D. MM: MM Report ID: [id number] Reading Location: [id number] Procedure Note Carlo Helm MD - 12/31/2024 [...] Carlo Helm M.D. MM: MM Report ID: [id number] Reading Location: [place] [address] Bruna Dyer STILL OPERATOR HELPER IMG CT PROCEDURES Final Result * Troponin T high-sensitivity 2-hour (12/31/2024 8:11 PM AT RISK SPECIALIST) Trop T hs 7 <=22 ng/L Comment: Interpretive Data For further hscTnT resources including the diagnostic algorithm and an aid in interpretation, copy and paste this link: https://nrl.testcatalog.org/show/hsTrop Current Interpretive Data last revised 2020. Testing performed by: [address] [address] Trop T hs delta 1 ng/L NEO MAHARAJ Comment:Testing performed by : [address] [address] Trop T hs interp Insignificant NEO MAHARAJ Comment:Testing performed by : [address] [address] Blood 12/31/2024 8:11 PM AT RISK SPECIALIST 12/31/2024 8:15 PM AT RISK SPECIALIST Mariana HOUSTON LAB BLOOD ORDERABLES Final Resu lt NEO [address] [facility] Department [place] [address] * (ABNORMAL) CBC with auto differential (12/31/2024 7:14 PM AT RISK SPECIALIST) WBC 47.3(H) 3.8 - 9.9 K/cumm Comment:Testing performed by : [address] [address] Hgb 15.9 13.0 - 17.5 g/dL NEO Comment:Testing performed by : [address] [address] Hct 45.0 38.9 - 50.3 % NEO Comment:Testing performed by : [address] [address]39 Plt 237 150 - 400 K/cumm NEO Comment:Testing performed by : [address] [address] MPV 10.8 9.1 - 12.3 fL NEO Comment:Testing performed by : [address] [address] RBC 5.08 4.30 - 5.80 M/cumm NEO Comment:Testing performed by : [address] [address] MCV 88.6 81.3 - 96.4 fL NEO Comment:Testing performed by : [address] [address] MCH 31.3 27.1 - 33.3 pg NEO MAHARAJ Comment:Testing performed by : [address] [address] MCHC 35.3 32.3 - 35.7 g/dL NEO MAHARAJ Comment:Testing performed by : [address] [address] RDW CV 12.4 11.1 - 14.9 % NEO Comment:Testing performed by : [address] [address] RDW SD 40.3 35.7 - 48.1 fL NEO Comment:Testing performed by : [address] [address] NRBC abs 0.00 0.00 - 0.01 K/cumm NEO Comment:Testing performed by : [address] [address] Blood 12/31/2024 7:14 PM AT RISK SPECIALIST 12/31/2024 7:26 PM AT RISK SPECIALIST Bruna Dyer STILL OPERATOR HELPER LAB BLOOD ORDERABLES Fin al Result [facility] Department [place] [address] * (ABNORMAL) Manual Differential (12/31/2024 7:14 PM AT RISK SPECIALIST) Differential Manual Comment:Testing performed by : [address] [address] Cells Counted 100 NEO Comment:Testing performed by : [address] [address] Neutrophil abs 44.0(H) 1.5 - 6.5 K/cumm NEO Comment:Testing performed by : [address] [address] Lymphocyte abs 2.4 0.8 - 3.3 K/cumm NEO Comment:Testing performed by : [address] [address] Monocyte abs 1.0(H) 0.2 - 0.8 K/cumm NEO Comment:Testing performed by : [address] [address] Neutrophil pct 93.0 % NEO Comment: Interpretive Data Percent cell count reference ranges are not reported, since discordance with absolute values may lead to misinterpretation of CBC data. Current Interpretive Data was last revised on 2018. Testing performed by: [address] [address] Lymphocyte pct 5.0 % NEO Comment: Interpretive Data Percent cell count reference ranges are not reported, since discordance with absolute values may lead to misinterpretation of CBC data. Current Interpretive Data was last revised on 2018. Testing performed by: [address] [address] Monocyte pct 2.0 % NEO Comment: Interpretive Data Percent cell count reference ranges are not reported, since discordance with absolute values may lead to misinterpretation of CBC data. Current Interpretive Data was last revised on 2018. Testing performed by: [address] [address] RBC morphology Consistent with RBC Indicies NEO Comment:Testing performed by : [address] [address] Platelet estimate #A#CAC NEO Comment:Testing performed by : [address] [address] Blood 12/31/2024 7:14 PM AT RISK SPECIALIST 12/31/2024 7:26 PM AT RISK SPECIALIST Bruna Dyer STILL OPERATOR HELPER LAB BLOOD ORDERABLES Fin al Result NEO [address] [facility] [place] [address] * Blood culture Blood Peripheral (12/31/2024 7:14 PM AT RISK SPECIALIST) Report Final Report: No growth Comment:Testing performed by : [facility], [address] [facility], [place]., [address] Blood (Peripheral) 12/31/2024 7:14 PM AT RISK SPECIALIST 12/31/2024 10:13 PM AT RISK SPECIALIST Narrative NEO - 01/05/2025 7:01 AM AT RISK SPECIALIST From a different site than #1. [...] performance characteristics have been verified by the [facility]. For questions about this culture, contact the Microbiology Laboratory at [phone]. Interpretive data was last revised on 24. Bruna Dyer NP LAB MICROBIOLOGY - GENER AL ORDERABLES Final Result Performing Organization Address City/[facility]/ZIP Co de Phone Number [facility] [employer] [place] [address] * Sepsis Lactate w/ Reflex (12/31/2024 7:05 PM AT RISK SPECIALIST) [facility] Sepsis Lactate 1.4 0.7 - 2.0 mmol/L Comment:Testing performed by : [facility], [address] [place] [address]., [address] Blood 12/31/2024 7:05 PM AT RISK SPECIALIST 12/31/2024 7:23 PM AT RISK SPECIALIST Mariana HOUSTON LAB BLOOD ORDERABLES Final Resu lt [address] [place] [address] * Blood culture Blood Peripheral (12/31/2024 7:05 PM AT RISK SPECIALIST) Report Final Report: No growth Comment:Testing performed by : [facility], [address] [facility], [place]., [address] Blood (Peripheral) 12/31/2024 7:05 PM AT RISK SPECIALIST 12/31/2024 10:08 PM AT RISK SPECIALIST Narrative NEO MAHARAJ - 01/05/2025 7:01 AM AT RISK SPECIALIST Draw Blood cultures before administration of [...] performance characteristics have been verified by the [facility]. For questions about this culture, contact the Microbiology Laboratory at [phone]. Interpretive data was last revised on 24. Bruna Dyer NP LAB MICROBIOLOGY - [facility] AL ORDERABLES Final Result NEO 95[address] [facility] Department of Laboratories [place], [place] [id number] * XR Chest 1 Vw Portable (if patient condition/safety warrant portable) (12/31/2024 6:10 PM AT RISK SPECIALIST) Anatomical Region Laterality Modality Body, Chest N/A Computed Radiogr aphy 12/31/2024 7:06 PM AT RISK SPECIALIST Narrative 12/31/2024 7:08 PM AT RISK SPECIALIST EXAM DESCRIPTION: XR CHEST 1 VIEW [...] 7:08 PM - Electronically signed by Abdias ZHAO: CECE Report ID: [id number] Reading Location: [place] [address] Procedure Note Abdias Johnson MD - 12/31/2024 [...] 7:08 PM - Electronically signed by Abdias ZHAO: CECE Report ID: [id number] Reading Location: [place] [address] Gerard Burrows DO IMG XR PROCEDURES Final Result * (ABNORMAL) Urinalysis reflex to microscopic and culture Urine, clean voided (12/31/2024 6:07 PM AT RISK SPECIALIST) Color, ur Charu Yellow Comment:Testing performed by : [address] [address] Clarity, ur Cloudy(A) Clear NEO Comment:Testing performed by : [address] [address] Specific gravity, ur 1.025 1.003 - 1.030 NEO Comment:Testing performed by : [address] [address] pH, urine 5.5 NEO Comment: Interpretive Data U rine pH is affected by diet, medications, systemic acid-base disturbances, and renal tubular function. pH may affect urinary stone formation. For example, urine pH below 6.0 may help reduce the tendency for calcium phosphate stones and pH greater than 6.0 may reduce the tendency for uric acid stone formation. Source: [facility] [place] Current Interpretive Data was last revised on 2017 Testing performed by: [address] [address] Protein, ur ql 1+(A) Negative NEO Comment:Testing performed by : [address] [address] Glucose, ur ql Trace(A) Negative NEO Comment:Testing performed by : [address] [address] Ketones, ur Negative Negative NEO Comment:Testing performed by : [address] [address] Bilirubin, ur Negative Negative NEO Comment:Testing performed by : [address] [address] Blood, ur 3+(A) Negative NEO Comment:Testing performed by : [address] [address] Urobilinogen, ur <2.0 <2.0 mg/dL NEO Comment:Testing performed by : [address] [address] Nitrite, ur Negative Negative NEO Comment:Testing performed by : [address] [address] Leukocyte esterase, ur 4+(A) Negative NEO Comment:Testing performed by : [address] [address] UA reflex comment Reflex to microscopic UA will be performed. NEO Comment:Testing performed by : [address] [address] Urine, clean voided 12/31/2024 6:07 PM AT RISK SPECIALIST 12/31/2024 6:14 PM AT RISK SPECIALIST Gerard Burrows DO LAB MICROBIOLOGY - GENERAL ORD ERABLES Final Result Performing Organization Address [facility] de Phone Number NEO 45[address] [facility] Department [place] [address] * (ABNORMAL) Urinalysis, microscopic only (12/31/2024 6:07 PM AT RISK SPECIALIST) WBC, ur >50(A) 0 - 5 /HPF Comment:Testing performed by : [address] [address] RBC, ur >50(A) 0 - 2 /HPF NEO Comment:Testing performed by : [address] [address] Epithelial cells, squamous, ur 21-50(A) 0 - 5 /HPF NEO Comment:Testing performed by : [address] [address] Bacteria, ur 3+(A) NEO Comment:Testing performed by : [address] [address] Mucous, ur Present(A) NEO Comment:Testing performed by : [address] [address] Culture Reflex Comment Reflex to urine culture will be performed. NEO Comment:Testing performed by : [address] [address] Urine, clean voided 12/31/2024 6:07 PM AT RISK SPECIALIST 12/31/2024 6:14 PM AT RISK SPECIALIST Gerard Burrows DO LAB URINE ORDERABLES Final Res ult Performing Organization Address [facility]/State/ZIP Co de Phone Number [facility]O [facility] Department [place] [address] * (ABNORMAL) Urine culture Urine, clean voided (12/31/2024 6:07 PM AT RISK SPECIALIST) Report Final Report: Greater than or equal to 100,000 colonies/mL of Escherichia coli Plus growth of clinically insignificant bacterial db. (.) Comment:Testing performed by : [facility], [address] [place]., [address] Organism ESCHERICHIA COLI [facility] Organism PLUS GROWTH OF CLINICALLY INSIGNIFICANT DB. [facility] Urine, clean voided 12/31/2024 6:07 PM AT RISK SPECIALIST 12/31/2024 10:11 PM AT RISK SPECIALIST Narrative [facility] - 01/02/2025 3:08 PM AT RISK SPECIALIST Urine culture reflexed based upon urinalysis results. Testing performed by [facility] ([phone]) Organism Antibiotic Method Susceptibility Escherichia coli Ampicillin [...] Susceptible Mariana HOUSTON LAB MICROBIOLOGY - GENERAL ORDEros [facility] Final Result NEO 53[address] [facility] [place] [address] * Troponin T high-sensitivity series (baseline, 2hr, 4hr, 6hr) (12/31/2024 5:58 PM AT RISK SPECIALIST) Trop T hs <6 <=22 ng/L Comment: Interpretive Data For further hscTnT resources including the diagnostic algorithm and an aid in interpretation, copy and paste this link: https://nrl.testcatalog.org/show/hsTrop Current Interpretive Data last revised 2020. Testing performed by: [address] [address] Blood 12/31/2024 5:58 PM AT RISK SPECIALIST 12/31/2024 6:14 PM AT RISK SPECIALIST us Gerard Guanakode DO LAB BLOOD ORDERABLES Final Res ult NEO 25[address] [facility] Department [place] [address] * Influenza A/B, RSV, and COVID-19 PCR Nasopharyngeal (12/31/2024 5:58 PM AT RISK SPECIALIST) COVID-19 RNA Negative Negative Comment:Testing performed by : [address] [address] Influenza A RNA Negative Negative NOE Comment:Testing performed by : [address] [address] Influenza B RNA Negative Negative [facility] Comment:Testing performed by : [address] [address] RSV RNA Negative Negative [facility] Comment: Interpretive data: Testing performed by [facility]. This test is performed using the [employer] Xpert Xpress CoV-2/Flu/RSV plus assay. This is a multiplex, real-time reverse transcriptase PCR assay intended for the qualitative detection of nucleic acid from SARS-CoV-2, influenza A, influenza B, and respiratory syncytial virus. This assay has been cleared by the [place] Food and Drug administration. The performance characteristics have been verified by the [facility]. Results must be considered in the clinical context, and a negative result does not rule out infection. Interpretive Data last revised 2023 Testing performed by: [address] [address] Nasopharyngeal 12/31/2024 5: 58 PM AT RISK SPECIALIST 12/31/2024 6:15 PM AT RISK SPECIALIST Narrative NEO - 12/31/2024 6:54 PM AT RISK SPECIALIST Is the Patient experiencing symptoms consistent with COVID?->Yes us Mariana HOUSTON LAB MICROBIOLOGY - GENERAL ORDEros EDDY Final Result Performing Organization Address [facility] Co de Phone Number [facility]O [facility] Department [place] [address] * eGFR (12/31/2024 5:58 PM AT RISK SPECIALIST) eGFR >90 >=60 mL/min/1. 73 m2 [...] last reviewed 2021. Testing performed by: [address] [address] Blood 12/31/2024 5:58 PM AT RISK SPECIALIST 12/31/2024 6:14 PM AT RISK SPECIALIST us Gerard Burrows DO LAB BLOOD ORDERABLES Final Res ult Performing Organization Address City/[facility]/ZIP Co de Phone Number NEO [address] [facility] Department [place] [address] * (ABNORMAL) Differential, auto (12/31/2024 5:58 PM AT RISK SPECIALIST) Neutrophil abs 40.5(H) 1.5 - 6.5 K/cumm Comment:Testing performed by : [address] [address] Imm gran abs 0.8(H) 0.0 - 0.1 K/cumm [facility] Comment:Testing performed by : [address] [address] Lymphocyte abs 1.5 0.8 - 3.3 K/cumm [facility] Comment:Testing performed by : [address] [address] Monocyte abs 1.7(H) 0.2 - 0.8 K/cumm [facility] Comment:Testing performed by : [address], [place]., [address] Eosinophil abs 0.0 0.0 - 0.5 K/cumm [facility] Comment:Testing performed by : [address] [address] Basophil abs 0.1 0.0 - 0.1 K/cumm [facility] Comment:Testing performed by : [address] [address] Neutrophil pct 91.1 % [facility] Comment: Interpretive Data Percent cell count reference ranges are not reported, since discordance with absolute values may lead to misinterpretation of CBC data. Current Interpretive Data was last revised on 2018. Testing performed by: [address] [address] Imm gran pct 1.7 % [facility] Comment: Interpretive Data Percent cell count reference ranges are not reported, since discordance with absolute values may lead to misinterpretation of CBC data. Current Interpretive Data was last revised on 2018. Testing performed by: [address] [address] Lymphocyte pct 3.3 % [facility] Comment: Interpretive Data Percent cell count reference ranges are not reported, since discordance with absolute values may lead to misinterpretation of CBC data. Current Interpretive Data was last revised on 2018. Testing performed by: [address] [address] Monocyte pct 3.7 % [facility] Comment: Interpretive Data Percent cell count reference ranges are not reported, since discordance with absolute values may lead to misinterpretation of CBC data. Current Interpretive Data was last revised on 2018. Testing performed by: [address] [address] Eosinophil pct 0.0 % NEO MAHARAJ Comment: Interpretive Data Percent cell count reference ranges are not reported, since discordance with absolute values may lead to misinterpretation of CBC data. Current Interpretive Data was last revised on 2018. Testing performed by: [address] [address] Basophil pct 0.2 % NEO MAHARAJ Comment: Interpretive Data Percent cell count reference ranges are not reported, since discordance with absolute values may lead to misinterpretation of CBC data. Current Interpretive Data was last revised on 2018. Testing performed by: [address] [address] Blood 12/31/2024 5:58 PM AT RISK SPECIALIST 12/31/2024 6:14 PM AT RISK SPECIALIST us Gerard Burrows DO LAB BLOOD ORDERABLES Final Res ult [facility] Department [place] [address] * (ABNORMAL) CBC with auto differential (12/31/2024 5:58 PM AT RISK SPECIALIST) WBC 44.6(H) 3.8 - 9.9 K/cumm Comment:Testing performed by : [address] [address] Hgb 15.2 13.0 - 17.5 g/dL NEO MAHARAJ Comment:Testing performed by : [address] [address] Hct 42.9 38.9 - 50.3 % NEO MAHARAJ Comment:Testing performed by : [address] [address] Plt 240 150 - 400 K/cumm NEO MAHARAJ Comment:Testing performed by : [address] [address] MPV 10.6 9.1 - 12.3 fL NEO MAHARAJ Comment:Testing performed by : [address] [address] RBC 4.84 4.30 - 5.80 M/cumm NEO MAHARAJ Comment:Testing performed by : [address], [address] MCV 88.6 81.3 - 96.4 fL NEO Comment:Testing performed by : [address] [address] MCH 31.4 27.1 - 33.3 pg NEO Comment:Testing performed by : [address] [address] MCHC 35.4 32.3 - 35.7 g/dL NEO Comment:Testing performed by : [address], [address] RDW CV 12.4 11.1 - 14.9 % NEO Comment:Testing performed by : [address], [address] RDW SD 40.0 35.7 - 48.1 fL NEO Comment:Testing performed by : [address], [address] NRBC abs 0.00 0.00 - 0.01 K/cumm NEO Comment:Testing performed by : [address] [address] Blood Venous blood specimen / Unknown 12/31/2024 5:58 PM AT RISK SPECIALIST 12/31/2024 6:14 PM AT RISK SPECIALIST Gerard Burrows DO LAB BLOOD ORDERABLES Final Res ult NEO 4[address] [facility] Department of Laboratories [place], [place] [id number] * Manual Differential (12/31/2024 5:58 PM AT RISK SPECIALIST) Differential Manual Comment:Testing performed by : [address] [address] Blood 12/31/2024 5:58 PM AT RISK SPECIALIST 12/31/2024 6:14 PM AT RISK SPECIALIST Gerard Burrows DO LAB BLOOD ORDERABLES Final Res ult ALA[address] [place] [address] * Lipase (12/31/2024 5:58 PM AT RISK SPECIALIST) Pathologist [facility] Lipase 15 10 - 99 Units/L Comment:Testing performed by : [address] [address] Blood 12/31/2024 5:58 PM AT RISK SPECIALIST 12/31/2024 6:14 PM AT RISK SPECIALIST Gerard Burrows DO LAB BLOOD ORDERABLES Final Res ult Performing Organization Address [facility] Co de Phone Number NEO [address] [address] * (ABNORMAL) Comprehensive metabolic panel (12/31/2024 5:58 PM AT RISK SPECIALIST) [facility] Sodium 136 135 - 145 mmol/L Comment:Testing performed by : [address] [address] Potassium, pl 3.4 3.3 - 4.9 mmol/L NEO Comment:Testing performed by : [address] [address] Chloride 98 97 - 110 mmol/L NEO Comment:Testing performed by : [address] [address] CO2 22 22 - 32 mmol/L NEO Comment:Testing performed by : [address] [address] Anion gap 16(H) 2 - 15 mmol/L NEO Comment:Testing performed by : [address] [address] BUN 14 6 - 25 mg/dL NEO Comment:Testing performed by : [address] [address] Creatinine 0.90 0.80 - 1.30 mg/dL NEO Comment:Testing performed by : [address] [place] [address] Glucose 150 70 - 199 mg/dL NEO [...] last revised 2022. Testing performed by: [address] [address] Calcium 9.1 8.5 - 10.3 mg/dL NEO Comment:Testing performed by : [address] [address] Bilirubin, total 1.0 0.1 - 1.2 mg/dL NEO Comment:Testing performed by : [address] [address] Protein, pl 7.3 6.5 - 8.5 g/dL [facility] Comment:Testing performed by : [address] [address] Albumin 4.0 3.5 - 5.0 g/dL NEO Comment:Testing performed by : [address] [address] Alk phos 91 40 - 130 Units/L NEO Comment:Testing performed by : [address] [address] ALT 15 7 - 55 Units/L [facility] Comment:Testing performed by : [address] [address] AST 14 10 - 50 Units/L NEO Comment:Testing performed by : [address] [address] Blood 12/31/2024 5:58 PM AT RISK SPECIALIST 12/31/2024 6:14 PM AT RISK SPECIALIST us Gerard Slowik DO LAB BLOOD ORDERABLES Final Res ult NEO [address] [place] [address] * ECG 12 lead (12/31/2024 5:53 PM AT RISK SPECIALIST) Ventricular Rate EKG/Min 103 BPM [facility] Atrial Rate 103 BPM [facility] IN-Interval (MSEC) 150 ms [facility] QRS-Interval (MSEC) 92 ms [facility] QT-Interval (MSEC) 332 ms [facility] QTc 434 ms [facility] P [place] -5 degrees [facility] R [place] 24 degrees [facility] T [place] 1 degrees [facility] Diagnosis Sinus tachycardia Possible Inferior infarct , age undetermined Abnormal ECG No previous ECGs available Confirmed by MAKAYLA THOMPSON M.D. ([id number]) on 01/01/2025 9:25:50 PM [facility] 12/31/2024 5:53 PM AT RISK SPECIALIST 01/01/2025 9:25 PM AT RISK SPECIALIST us Gerard Markos DO ECG ORDERABLES Final Result Performing Organization Address [facility] Co de Phone Number [facility] * IN ARTHROCENTESIS ASPIR&/INJ MAJOR JT/BURSA W/O US (12/21/2024 2:15 PM AT RISK SPECIALIST) Narrative Makayla Michaels PA - 12/21/2024 2:15 PM AT RISK SPECIALIST Makayla Michaels PA 12/21/2024 2:05 PM [...] the procedure well with no immediate complications us Makayla HOUSTON IN CLINIC/BEDSIDE ORDERAB LES Final Result * eGFR (12/13/2024 9:50 AM AT RISK SPECIALIST) eGFR >90 >=60 mL/min/1. 73 m2 [...] last reviewed 2021. Testing performed by: [address] [address] Blood 12/13/2024 9:50 AM AT RISK SPECIALIST 12/13/2024 10:49 AM AT RISK SPECIALIST us Tana Mccallum NP LAB BLOOD ORDERABLES Final R esult NEO 45[address] [facility] Department [place] [address] * (ABNORMAL) Differential, auto (12/13/2024 9:50 AM AT RISK SPECIALIST) Neutrophil abs 9.1(H) 1.5 - 6.5 K/cumm Comment:Testing performed by : [address] [address] Imm gran abs 0.1 0.0 - 0.1 K/cumm NEO MAHARAJ Comment:Testing performed by : [address] [address] Lymphocyte abs 3.0 0.8 - 3.3 K/cumm NEO Comment:Testing performed by : [address] [address] Monocyte abs 0.8 0.2 - 0.8 K/cumm NEO Comment:Testing performed by : [address] [address] Eosinophil abs 0.2 0.0 - 0.5 K/cumm NEO Comment:Testing performed by : [address], [place]., [address] Basophil abs 0.0 0.0 - 0.1 K/cumm NEO Comment:Testing performed by : [address] [address] Neutrophil pct 69.4 % NEO Comment: Interpretive Data Percent cell count reference ranges are not reported, since discordance with absolute values may lead to misinterpretation of CBC data. Current Interpretive Data was last revised on 2018. Testing performed by: [address] [address] Imm gran pct 0.6 % NEO Comment: Interpretive Data Percent cell count reference ranges are not reported, since discordance with absolute values may lead to misinterpretation of CBC data. Current Interpretive Data was last revised on 2018. Testing performed by: [address] [address] Lymphocyte pct 22.6 % NEO Comment: Interpretive Data Percent cell count reference ranges are not reported, since discordance with absolute values may lead to misinterpretation of CBC data. Current Interpretive Data was last revised on 2018. Testing performed by: [address] [address] Monocyte pct 6.0 % NEO Comment: Interpretive Data Percent cell count reference ranges are not reported, since discordance with absolute values may lead to misinterpretation of CBC data. Current Interpretive Data was last revised on 2018. Testing performed by: [address] [address] Eosinophil pct 1.1 % NEO MAHARAJ Comment: Interpretive Data Percent cell count reference ranges are not reported, since discordance with absolute values may lead to misinterpretation of CBC data. Current Interpretive Data was last revised on 2018. Testing performed by: [address] [address] Basophil pct 0.3 % NEO MAHARAJ Comment: Interpretive Data Percent cell count reference ranges are not reported, since discordance with absolute values may lead to misinterpretation of CBC data. Current Interpretive Data was last revised on 2018. Testing performed by: [address] [address] Blood 12/13/2024 9:50 AM AT RISK SPECIALIST 12/13/2024 10:48 AM AT RISK SPECIALIST us Tana Mccallum NP LAB BLOOD ORDERABLES Final R esult NEO 5[address] [facility] [place] [address] * (ABNORMAL) CBC with auto differential (12/13/2024 9:50 AM AT RISK SPECIALIST) WBC 13.2(H) 3.8 - 9.9 K/cumm Comment:Testing performed by : [address] [address] Hgb 15.6 13.0 - 17.5 g/dL NEO MAHARAJ Comment:Testing performed by : [address] [address] Hct 44.3 38.9 - 50.3 % NEO MAHARAJ Comment:Testing performed by : [address] [address] Plt 278 150 - 400 K/cumm NEO MAHARAJ Comment:Testing performed by : [address] [address] MPV 11.1 9.1 - 12.3 fL NEO MAHARAJ Comment:Testing performed by : [address] [address] RBC 4.94 4.30 - 5.80 M/cumm NEO MAHARAJ Comment:Testing performed by : [facility], [address] [place] [address]., [address] MCV 89.7 81.3 - 96.4 fL NEO Comment:Testing performed by : [address] [address] MCH 31.6 27.1 - 33.3 pg NEO MAHARAJ Comment:Testing performed by : [address] [address] MCHC 35.2 32.3 - 35.7 g/dL NEO Comment:Testing performed by : [address] [address] RDW CV 12.2 11.1 - 14.9 % NEO Comment:Testing performed by : [address] [address] RDW SD 39.9 35.7 - 48.1 fL NEO Comment:Testing performed by : [address] [address] NRBC abs 0.00 0.00 - 0.01 K/cumm NEO Comment:Testing performed by : [address] [address] Blood 12/13/2024 9:50 AM AT RISK SPECIALIST 12/13/2024 10:48 AM AT RISK SPECIALIST us Tana Mccallum NP LAB BLOOD ORDERABLES Final R esult NEO 89[address] [facility] [place] [address] * Hepatitis C antibody Blood (12/13/2024 9:50 AM AT RISK SPECIALIST) Hep C Ab Nonreactive Nonreactive Comment: [...] revised on 2020. Blood 12/13/2024 9:50 AM AT RISK SPECIALIST 12/13/2024 12:47 PM AT RISK SPECIALIST Tana Mccallum NP LAB MICROBIOLOGY - GENERAL O RDERABLES Final Result Performing Organization Address [facility] de Phone Number [place] [phone] [place] [address] * Hepatitis B Surface Antigen Blood (12/13/2024 9:50 AM AT RISK SPECIALIST) HepBsAg Nonreactive Nonreactive Blood 12/13/2024 9:50 AM AT RISK SPECIALIST 12/13/2024 12:47 PM AT RISK SPECIALIST Tana Mccallum NP LAB MICROBIOLOGY - GENERAL O RDERABLES Final Result Performing Organization Address [facility] Phone Number [place] [phone] [place] [address] * Lipid panel (12/13/2024 9:50 AM AT RISK SPECIALIST) Cholesterol 163 30 - 199 mg/dL [...] last revised on 2018. Testing performed by: [facility], [address] [place] [address]., [id number] Triglycerides 90 <=149 mg/dL NEO Comment: Interpretive Data Ages < or = [...] revised on 2018. Testing performed by: [address] [address] HDL 40 >=40 mg/dL NEO Comment: Interpretive Data Ages < or = [...] revised on 2018. Testing performed by: [address] [address] LDL, calculated 106 <=129 mg/dL NEO Comment: Interpretive Data Ages < or = [...] 3. Guillermo Taylor et al. FLAVIO Cardiol. 2019March 16;5(5):540-548. doi: [email or web address] Current Interpretive Data was last revised on 2024. Testing performed by: [address] [address] Non-HDL Cholesterol 123 mg/dL NEO MAHARJA Comment: Interpretive Data Ages < or = [...] revised on 2018. Testing performed by: [address] [address] Chol/HDL ratio 4 NEO Comment:Testing performed by : [address] [address] Blood 12/13/2024 9:50 AM AT RISK SPECIALIST 12/13/2024 10:49 AM AT RISK SPECIALIST us Tana Mccallum NP LAB BLOOD ORDERABLES Final R esult NEO [address] [facility] Department of Laboratories [place], [place] [id number] * (ABNORMAL) Comprehensive metabolic panel (12/13/2024 9:50 AM AT RISK SPECIALIST) Sodium 141 135 - 145 mmol/L Comment:Testing performed by : [address] [address] Potassium, pl 4.3 3.3 - 4.9 mmol/L NEO MAHARAJ Comment:Testing performed by : [address] [address] Chloride 106 97 - 110 mmol/L NEO MAHARAJ Comment:Testing performed by : [address] [address] CO2 24 22 - 32 mmol/L NEO Comment:Testing performed by : [address] [address] Anion gap 11 2 - 15 mmol/L NEO Comment:Testing performed by : [address], [place]., [address] BUN 15 6 - 25 mg/dL NEO Comment:Testing performed by : [address], [place]., [address] Creatinine 0.65(L) 0.80 - 1.30 mg/dL NEO Comment:Testing performed by : [address], [place]., [address] Glucose 104 70 - 199 mg/dL NEO [...] last revised 2022. Testing performed by: [address] [address] Calcium 9.4 8.5 - 10.3 mg/dL NEO Comment:Testing performed by : [address] [address] Bilirubin, total 0.4 0.1 - 1.2 mg/dL [facility] Comment:Testing performed by : [address] [address] Protein, pl 7.5 6.5 - 8.5 g/dL NEO Comment:Testing performed by : [address] [address] Albumin 4.1 3.5 - 5.0 g/dL NEO Comment:Testing performed by : [address] [address] Alk phos 99 40 - 130 Units/L NEO Comment:Testing performed by : [facility], [address] [place] [address]., [address] ALT 24 7 - 55 Units/L NEO Comment:Testing performed by : [address] [address] AST 24 10 - 50 Units/L NEO Comment:Testing performed by : [address] [address] Blood 12/13/2024 9:50 AM AT RISK SPECIALIST 12/13/2024 10:49 AM AT RISK SPECIALIST Tana Mccallum NP LAB BLOOD ORDERABLES Final R esult Performing Organization Address City/[facility]/ZIP Co de Phone Number [address] [employer] [place] [address] * PSA screen (12/09/2023 8:57 AM AT RISK SPECIALIST) PSA-Total 1.88 <=3.90 ng/mL NEO Comment: [...] data last revised 22. Testing performed by: [address] [address] Blood 12/09/2023 8:57 AM AT RISK SPECIALIST 12/09/2023 12:00 PM AT RISK SPECIALIST us Makayla Carrillo Jr., MD LAB BLOOD ORDERABLES Final Result Performing Organization Address City/[facility]/ZIP Co de Phone Number [address] [employer] [place] [address] * HM COLONOSCOPY (05/21/2021) Historical Provider HEALTH MAINTENANCE Final Result from Last 3 Months or Most Recently Relevant to Health Maintenance Insurance [facility] Advance Directives For more information, please contact: [phone] * Full Code (Latest Code Status on File) Date Activated Date Inactivated Comments 12/31/2024 10:55 PM 01/04/2025 5:13 PM Care Teams [employer]er Relationship Specialty Start Date End Date Makayla Carrillo Jr., MD [address] [place] [id number] PCP - General Internal Medicine 04/05/20
== END 2025-03-08 16:42 | disposition home or self-care (01) ==
PROVIDERS: PCP Hospitalist; Visit Provider Internal Medicine Hematology & Oncology
DX: D72.829 Elevated white blood cell count, unspecified (principal)
CPT/HCPCS: 36415; 80053; 81206; 81207; 85027; 88184

== ENCOUNTER 2025-05-18 16:41 | Emergency (ER) | payer OTHER, SELFPAY ==
--- NOTE | 2025-05-18 16:43 | ED.BACK ---
HPI - Back Pain/Injury General Chief Complaint: Back Pain/Injury Stated Complaint: Back Pain Time Seen by Provider: 05/18/25 16:48 Source: patient, RN notes reviewed and old records reviewed Mode of arrival: ambulatory Limitations: no limitations History of Present Illness HPI Narrative: 54-year-old male presents to the [facility] with right lower back pain after lifting a Julien while helping someone change a tire 3 days ago Denies any loss retention of bowel or bladder. Walks with a normal gait. Pain is worse with changing of positions, especially sitting to standing and standing to sitting. Has taken ibuprofen. Onset (ago): day(s) (3) Related Data Home Medications ?Medication ?Instructions ?Recorded ?Confirmed ?Last Taken ?Type meloxicam 15 mg tablet 15 mg PO DIRECTED 08/17/23 08/17/23 Unknown History Allergies Allergy/AdvReac Type Severity Reaction Status Date / Time No Known Drug Allergies Allergy Unknown none Verified 05/18/25 16:53 Review of Systems Review of Systems: All systems reviewed & are unremarkable except as noted in HPI and below Constitutional: Constitutional: Reports no additional constitutional complaints Gastrointestinal: Gastrointestinal: Reports no additional gastrointestinal complaints Musculoskeletal: Musculoskeletal: Reports as per HPI and Reports back pain Integumentary/Breasts: Skin/Breast: Reports system reviewed and no additional complaints, except as docu PMFSH Comments At the time of my signature, I reviewed and agree with the nursing past medical, surgical, social, and family history. There is no relevant family history pertinent to the patient complaint. Exam Const: General: cooperative, healthy appearing, comfortable, no acute distress, well developed, alert and well nourished Nutritional Appearance: well nourished and obese Orientation/consciousness: patient oriented x3 Limitations: no limitations HENMT: Head: normal to inspection Eyes: General: appearance normal, both eyes and all related structures Alignment and Position: alignment normal Neck: Neck: normal visual inspection, full ROM, no lymphadenopathy and no meningeal signs Chest: Chest palpation & inspection: normal inspection of the chest Resp: Effort & Inspection: normal respiratory effort and able to speak in complete sentences Auscultation: clear to auscultation bilaterally, no crackles, no rales, no rhonchi and no wheezes Cardio: Rate: regular rate GI: GI Palp: No abdominal tenderness Back/Spine/Pelvis: Back: no CVA tenderness, No erythema, No ecchymosis and back tenderness (Lumbar, right) Cervical Spine: normal cervical lordosis and cervical ROM normal Thoracic/Lumbar Spine: paraspinal muscle tenderness on the right in the upper lumbar, in the mid lumbar and in the lower lumbar, No thoracic spinal tenderness and No lumbar spinal tenderness Pelvis: no pain with anterior-posterior compression and no pain with lateral compression Skin: General skin exam: normal color and no rashes or lesions noted Neuro: General: patient oriented x3, gait normal, moves all extremities and no meningeal signs Cognition (Neuro): normal cognition Speech: normal speech Gait exam (Neuro): Normal gait present Extrem: General: normal to inspection, full ROM, capillary refill normal and normal gait Psych: Appearance: grossly normal and well kempt Mental Status: mental status grossly normal Speech and movement: Normal speech and movement present and Clear speech present Affect: normal affect Attitude: cooperative Course Course Level of Care: Express Care Visit Vital Signs Vital signs: Vital Signs Temperature 97.9 F 05/18/25 16:48 Pulse Rate 76 05/18/25 16:48 Respiratory Rate 18 05/18/25 16:48 Blood Pressure 145/90 H 05/18/25 16:48 Pulse Oximetry 98 05/18/25 16:48 Oxygen Delivery Room Air 05/18/25 16:48 Temperature 97.9 F 05/18/25 16:48 Pulse Rate 76 05/18/25 16:48 Respiratory Rate 18 05/18/25 16:48 Blood Pressure 145/90 H 05/18/25 16:48 Pulse Oximetry 98 05/18/25 16:48 Oxygen Delivery Room Air 05/18/25 16:48 Reviewed MDM - Back Pain/Injury MDM Narrative Medical decision making narrative: 54-year-old male with no significant history presents with right-sided lumbar pain after lifting a Julien while changing a tire. Patient without midline tenderness. Denies any loss or retention of bowel or bladder. Pain is worse with changing of positions No imaging necessary at this time. No direct trauma. No numbness or tingling in extremities. Patient appropriate for outpatient treatment with close follow-up. Will prescribed muscle relaxer. Educated patient to not take ibuprofen while on meloxicam. Discharge instructions reviewed with patient, as well as provided in writing per nursing staff. The instructions also include specific and strict return/GO TO THE ER as well as f/u information. All questions have been answered, and the patient deny any further questions with discharge and discharge plan. Some parts of this dictation were generated by voice recognition software and may contain typographical and/or grammatical inaccuracies. Differential Diagnosis Differential diagnosis: Likely lumbar radiculopathy, sciatica and strain of lumbar region Critical Care Time Critical Care Time Critical Care Time: No Discharge Plan Discharge Clinical Impression: Strain of lumbar region Qualifiers: Encounter type: initial encounter Qualified Code(s): S39.012A - Strain of muscle, fascia and tendon of lower back, initial encounter Patient Disposition: Home Condition: Stable Instructions: Low Back Strain (ED), Acute Low Back Pain (ED), Lower Back Exercises (ED) Additional Instructions: Take take Tylenol per package instructions. You should not be taking ibuprofen while on meloxicam. Take Baclofen (muscle relaxer) as directed. Do not drink, drive, operate machinery, or do anything dangerous while taking this medication Exercise:Combine aerobic exercise, like walking or swimming, with specific exercises to keep the muscles in your back and abdomen strong and flexible. Proper Lifting:Be sure to lift heavy items with your legs, not your back. Do not bend over to pick something up. Keep your back straight and bend at your knees. Weight:Maintain a healthy weight. Being overweight puts added stress on your lower back. Avoid Smoking:Both the smoke and the nicotine cause your spine to age faster than normal. Proper Posture:Good posture is important for avoiding future problems. A therapist can teach you how to safely stand, sit, and lift. Use warm moist heat to help with pain. Using topical such as Biofreeze, Willy-Saleh or Aspercreme can also help Follow up with Primary provider in 2-3 days, This may become a chronic condition and they will be the one to help manage your pain and order additional testing. Go to the nearest ER if you develop problems with bladder/bowel function, weakness or loss of feeling in one or both of your legs. Patient Language: [place] Irish Prescriptions: New baclofen 10 mg tablet 10 mg PO TID PRN (Reason: muscle pain) Qty: 15 0RF No Action meloxicam 15 mg tablet 15 mg PO DIRECTED Follow-up/Referrals: Gerardo,Avelino Crawley Jr., MD [Primary Care Provider] - Stand Alone Forms: Work/School Release IP Time of Disposition: 16:55
[2025-05-18 16:48] VITALS: BP 145/90; PULSE 76; RESP 18; TEMP 36.6; O2SAT 98
== END 2025-05-18 17:02 | disposition home or self-care (01) ==
PROVIDERS: Emergency Provider Nurse Practitioner; PCP Hospitalist
DX: S39.012A Strain of muscle, fascia and tendon of lower back, initial encounter (principal); X50.0XXA Overexertion from strenuous movement or load, initial encounter; M19.90 Unspecified osteoarthritis, unspecified site
CPT/HCPCS: 99213; G0463